=== PATIENT | male | born 1950 | race American Indian/Alaskan Native ===

== ENCOUNTER 2018-04-06 17:01 | Inpatient (IN) | payer MEDICARE ==
[2018-04-06] MEDS ORDERED: Aspirin 325 mg EC Tablets PO STA (18:12)
[2018-04-06] MEDS ORDERED: Morphine 4 MG/ML VIAL ONE (18:21)
[2018-04-06] MEDS ORDERED: Aspirin 325 mg EC Tablets PO ONE (18:26)
[2018-04-06 18:28] LABS: BASO # 0.1 K/uL (0.0-0.2); BASO % 0.4 % (0.0-2.0); EOS % 0.1 % (0.0-4.0); HEMOGLOBIN 16.8 g/dL (12.0-18.0); LYMPH # 2.2 K/uL (1.0-4.3); LYMPH % 13.3 % (20.0-40.0); MEAN CELL VOLUME 80.3 fL (80.0-94.0); MEAN CORPUSCULAR HEMOGLOBIN 27.6 pg (27.0-31.0); MEAN CORPUSCULAR HGB CONC 34.4 g/dL (33.0-37.0); MEAN PLATELET VOLUME 7.9 fL (7.2-11.7); MONO # 1.7 K/uL (0.0-0.8); MONO % 10.1 % (0.0-10.0); NEUT # 12.9 K/uL (1.8-7.0); NEUT % 76.1 % (50.0-75.0); NRBC % 0.1 % (0.0-2.0); RBC 6.08 Mil/uL (4.40-5.90); RED CELL DISTRIBUTION WIDTH 16.7 % (11.5-14.5); WHITE BLOOD COUNT 16.9 K/uL (4.8-10.8)
[2018-04-06 18:39] LABS: INR 1.1; PROTHROMBIN TIME 12.1 SECONDS (9.7-12.2)
[2018-04-06 18:40] LABS: ALB/GLOB RATIO 1.1 (1.0-2.1); ALBUMIN 4.4 g/dL (3.5-5.0); CALCIUM 9.8 mg/dl (8.6-10.4)
[2018-04-06 18:57] LABS: TROPONIN I 14.1 ng/mL (0.00-0.120)
[2018-04-06] MEDS ORDERED: Heparin25000 units/250ml 1/2NS 25,000 UNITS/250 ML BAG IV STA (19:03)
--- NOTE | 2018-04-06 19:26 | C.PDOC ---
History Of Present Illness Pt c/o chest pain radiating to the back. Time Seen by Provider: 04/06/18 18:07 Chief Complaint (Nursing): Chest Pain History Per: Patient Onset/Duration Of Symptoms: Hrs (since last night), Waxing/Waning Current Symptoms Are (Timing): Still Present Severity: Severe Quality: "Pain" Associated Symptoms: Dyspnea, Diaphoresis Alleviating Factors: None Additional History Per: Prior Records Past Medical History Reviewed: Historical Data, Nursing Documentation, Vital Signs Vital Signs: Last Vital Signs Temp 98.9 F 04/06/18 17:10 Pulse 105 H 04/06/18 18:33 Resp 26 H 04/06/18 18:33 BP 166/106 H 04/06/18 18:33 Pulse Ox 99 04/06/18 18:33 - Medical History PMH: HTN Surgical History: No Surg Hx Family History: States: Unknown Family Hx - Social History Hx Tobacco Use: Yes Hx Alcohol Use: No Hx Substance Use: No - Immunization History Hx Tetanus Toxoid Vaccination: No Hx Influenza Vaccination: No Hx Pneumococcal Vaccination: No Review Of Systems Except As Marked, All Systems Reviewed And Found Negative. Constitutional: Negative for: Fever, Weakness Cardiovascular: Positive for: Chest Pain Respiratory: Positive for: Shortness of Breath. Negative for: Hemoptysis Gastrointestinal: Negative for: Vomiting, Abdominal Pain, Diarrhea Musculoskeletal: Positive for: Back Pain. Negative for: Neck Pain Skin: Negative for: Rash Neurological: Negative for: Weakness, Numbness Physical Exam - Physical Exam Appears: In Acute Distress Skin: Normal Color, Warm, Diaphoretic Head: Atraumatic Eye(s): bilateral: PERRL, EOMI Neck: Normal ROM, Supple Cardiovascular: Rhythm Regular Respiratory: Normal Breath Sounds, No Accessory Muscle Use Gastrointestinal/Abdominal: Soft, No Tenderness Extremity: Normal ROM, No Pedal Edema, No Calf Tenderness Neurological/Psych: Oriented x3, Normal Motor, Normal Sensation ED Course And Treatment - Laboratory Results Result Diagrams: 04/06/18 18:23 04/06/18 18:23 Lab Interpretation: Abnormal Interpretation Of Abnormal: Positive Troponin. Renal insufficiency. Leukocytosis. ECG: Interpreted By Me, Viewed By Me ECG Rhythm: Sinus Tachycardia, R BBB, Nonspecific Changes ECG Interpretation: Abnormal Interpretation Of ECG: LVH. LAFB. No pior EKG available for comparison. Rate From EC O2 Sat by Pulse Oximetry: 99 Pulse Ox Interpretation: Normal - Radiology CXR: Interpreted by Me, Viewed By Me CXR Interpretation: Yes: Mediastinum (wnl) - Physician Consult Information Physician Contacted: Damion Lam Outcome Of Conversation: He evaluated pt in the ED and reviewed the EKG. He recommends Heparin drip, Brillinta 180mg po and ICU admission. Progress - Interventions Interventions:: Observation, Oxygen - Medications Administered Oral: Aspirin, Other (Brillinta) Intravenous: Other (Heparin) - Data Reviewed Data Reviewed: Lab, Diagnostic imaging, EKG, Old records - Patient Status Patient status: Partially improved - Critical Care Citical Care: Excluding Proc Time Critical Care Time: 60 minutes - Continuity of Care Discussed patient case with:: Patient, ED Nurse, PMD Discussed pt. case with sr technical sales consultant/specialty: Interventional Cardiology, Pulmonary/Crit. Care - Patient Plan Patient Plan: Admission, ICU Disposition Discussed With DrGordo: Mohan Latham Comment: He accepted pt on his service. Doctor Will See Patient In The: Hospital Counseled Patient/Family Regarding: Studies Performed, Diagnosis, Smoking Cessation - Disposition Disposition: HOSPITALIZED Disposition Time: 19:30 Condition: SERIOUS - Clinical Impression Clinical Impression: Acute HI
[2018-04-06] MEDS ORDERED: Nitroglycerin 2% Ointment Foilpak UD TOP STA (19:41)
--- NOTE | 2018-04-06 19:44 | RAD ---
PROCEDURE: CHEST RADIOGRAPH, 1 VIEW HISTORY: chest pain COMPARISON: None available. FINDINGS: LUNGS: Inspiratory volume appears somewhat limited. Crowding of the bronchovascular markings is favored over infiltrates at the bilateral bases, right greater than left. Clinically correlate further. PLEURA: No pneumothorax or pleural fluid seen. CARDIOVASCULAR: Normal. OSSEOUS STRUCTURES: No significant abnormalities. VISUALIZED UPPER ABDOMEN: Normal. OTHER FINDINGS: None. IMPRESSION: Diminished inspiratory volume is felt to cause crowding of the bronchovascular markings greater the right than left lung bases. Infiltrates are not favored but not completely excluded.
--- NOTE | 2018-04-06 19:44 | CP.PCM.CON ---
History of Present Illness - History of Present Illness History of Present Illness: INTERVENTIONAL CARDIOLOGY CONSULTATION REQUESTED BY DR ROBERSON Patient is a 67 year old male with PMH HTN, hypercholesterolemnia who presents with chest pain. The patient states symptoms began yesterday and is described as pressure like radiating to the shoulder. He had associated dyspnea. The patient initially waited however had recurrent symptoms and dyspnea, therefore he presented to [facility]. I ER he was found to have and EKG with sinus rhythm, ectopy, T wave abnormalities. Patient was found to have an elevated troponin. Creatinine is also elevated. Review of Systems - Constitutional Constitutional: absent: As Per HPI, Anorexia, Chills, Daytime Sleepiness, Excessive Sweating, Fatigue, Fever, Frequent Falls, Headache, Increased Appetite , Lethargy, Malaise, Night Sweats, Snoring, Sleep Apnea, Weight Gain, Weight Loss, Weakness, Other - EENT Eyes: absent: As Per HPI, Blind Spots, Blurred Vision, Change in Vision, Decreased Night Vision, Diplopia, Discharge, Dry Eye, Exophthalmos, Floaters, Irritation, Itchy Eyes, Loss of Peripheral Vision, Pain, Photophobia, Requires Corrective Lenses, Sees Flashes, Spots in Vision, Tunnel Vision, Other Visual Disturbances, Loss of Vision, Other Ears: absent: As Per HPI, Decreased Hearing, Ear Discharge, Ear Pain, Tinnitus, Abnormal Hearing, Disequilibrium, Dizziness, Other Nose/Mouth/Throat: absent: As Per HPI, Epistaxis, Nasal Congestion, Nasal Discharge, Nasal Obstruction, Nasal Trauma, Nose Pain, Post Nasal Drip, Sinus Pain, Sinus Pressure, Bleeding Gums, Change in Voice, Dental Pain, Dry Mouth, Dysphagia, Halitosis, Hoarsness, Lip Swelling, Mouth Lesions, Mouth Pain, Odynophagia, Sore Throat, Throat Swelling, Tongue Swelling, Facial Pain, Neck Pain, Neck Mass, Other - Cardiovascular Cardiovascular: Chest Pain, Diaphoresis, Dyspnea - Respiratory Respiratory: Dyspnea - Gastrointestinal Gastrointestinal: absent: As Per HPI, Abdominal Pain, Belching, Bloating, Change in Bowel Habits, Change in Stool Character, Coffee Ground Emesis, Constipation, Cramping, Diarrhea, Dyspepsia, Dysphagia, Early Satiety, Excessive Flatus, Fecal Incontinence, Heartburn, Hematemesis, Hematochezia, Loose Stools, Melena, Nausea, Odynophagia, Temesmus, Vomiting, Other - Genitourinary Genitourinary: absent: As Per HPI, Change in Urinary Stream, Difficulty Urinating, Dysuria, Flank Pain, Hematuria, Pyuria, Nocturia, Urinary Incontinence, Urinary Frequency, Urinary Hesitance, Urinary Urgency, Voiding Freq/Small Amts, Freq UTI, Hx Renal/Bladder Calculi, Hx /Renal Surgery, Bladder Distension, Other - Musculoskeletal Musculoskeletal: absent: As Per HPI, Abnormal Gait, Arthralgias, Atrophy, Back Pain, Deformity, Joint Swelling, Limited Range of Motion, Loss of Height, Muscle Cramps, Muscle Weakness, Myalgias, Neck Pain, Numbness, Radiating Pain into Limb, Stiffness, Tingling, Other - Integumentary Integumentary: absent: As Per HPI, Acne, Alopecia, Bleeding Lesions, Change in Hair, Change in Nails, Change in Pigmentation, Changing Lesions, Dry Skin, Erythema, Furuncle, Hirsutism, Lesions, New Lesions, Non-Healing Lesions, Photosensitivity, Pruritus, Rash, Skin Pain, Skin Ulcer, Sores, Striae, Swelling , Unusual Bruising, Wounds, Jaundice, Other - Neurological Neurological: absent: As Per HPI, Abnormal Gait, Abnormal Hearing, Abnormal Movements, Abnormal Speech, Behavioral Changes, Burning Sensations, Confusion, Convulsions, Disequilibrium, Dizziness, Numbness, Focal Weakness, Frequent Falls , Headaches, Lack of Coordination, Loss of Vision, Memory Loss, Paresthesias, Radicular Pain, Restless Legs, Sensory Deficit, Syncope, Tingling, Tremor, Vertigo, Weakness, Other Visual Disturbances, Other - Psychiatric Psychiatric: absent: As Per HPI, Abnormal Sleep Pattern, Anhedonia, Anxiety, Auditory Hallucinations, Behavioral Changes, Change in Appetite, Change in Libido, Confusion, Depression, Difficulty Concentrating, Hallucinations, Homicidal Ideation, Hopelessness, Irritability, Memory Loss, Mood Swings, Panic Attacks, Paranoia, Suicidal Ideation, Visual Hallucinations, Tactile Hallucinations, Other - Endocrine Endocrine: absent: As Per HPI, Change in Body Appearance, Change in Libido, Cold Intolorance, Deepening of Voice, Excessive Sweating, Fatigue, Flushing, Heat Intolorance, Increase in Ring/Shoe/Hat Size, Palpitations, Polydipsia, Polyphagia, Polyuria, Other - Hematologic/Lymphatic Hematologic: absent: As Per HPI, Easy Bleeding, Easy Bruising, Lymphadenopathy, Other Past Patient History - Past Social History Smoking Status: Heavy Smoker > 10 Cigarettes Daily - CARDIAC Hx Hypertension: Yes - PSYCHIATRIC Hx Substance Use: No - SURGICAL HISTORY Hx Surgeries: No - ANESTHESIA Hx Anesthesia: No Meds Allergies/Adverse Reactions: Allergies Allergy/AdvReac Type Severity Reaction Status Date / Time No Known Allergies Allergy Verified 04/06/18 17:12 - Medications Medications: Current Medications Heparin Sodium/Sodium Chloride (Heparin 59437 Units/250ml 1/2 Normal Saline) 25 ,000 units in 250 mls @ 12 mls/hr IV .[id number] STA PRN Reason: Protocol Stop: 04/07/18 15:52 Last Admin: 04/06/18 19:33 Dose: 12 mls/hr Physical Exam - Constitutional Appears: Non-toxic Additional comments: mild distress - Head Exam Head Exam: NORMAL INSPECTION - Eye Exam Eye Exam: Normal appearance - ENT Exam ENT Exam: Mucous Membranes Moist - Neck Exam Neck exam: Positive for: Full Rom - Respiratory Exam Respiratory Exam: Decreased Breath Sounds - Cardiovascular Exam Cardiovascular Exam: REGULAR RHYTHM - GI/Abdominal Exam GI & Abdominal Exam: Normal Bowel Sounds - Rectal Exam Rectal Exam: Deferred - Extremities Exam Extremities exam: Negative for: pedal edema - Back Exam Back exam: NORMAL INSPECTION - Neurological Exam Neurological exam: Alert, Oriented x3 - Psychiatric Exam Psychiatric exam: Normal Affect - Skin Skin Exam: Normal Color Results - Vital Signs Recent Vital Signs: Last Vital Signs Temp 98.9 F 04/06/18 17:10 Pulse 105 H 04/06/18 18:33 Resp 26 H 04/06/18 18:33 BP 166/106 H 04/06/18 18:33 Pulse Ox 99 04/06/18 19:30 - Labs Result Diagrams: 04/06/18 18:23 04/06/18 18:23 Labs: Laboratory Results - last 24 hr 04/06/18 04/06/18 04/06/18 18:23 18:23 18:23 WBC 16.9 H D RBC 6.08 H Hgb 16.8 Hct 48.9 MCV 80.3 MCH 27.6 MCHC 34.4 RDW 16.7 H Plt Count 236 MPV 7.9 Neut % (Auto) 76.1 H Lymph % (Auto) 13.3 L Barren % (Auto) 10.1 H Eos % (Auto) 0.1 Baso % (Auto) 0.4 Neut # (Auto) 12.9 H Lymph # (Auto) 2.2 Barren # (Auto) 1.7 H Eos # (Auto) 0.0 Baso # (Auto) 0.1 PT 12.1 INR 1.1 APTT 36 H D-Dimer, Quantitative 281 H Sodium 138 Potassium 3.9 Chloride 95 L Carbon Dioxide 31 H Anion Gap 16 BUN 24 H Creatinine 1.7 H Est GFR ( Amer) 49 Est GFR (Non-Af Amer) 41 POC Glucose (mg/dL) Random Glucose 140 H Calcium 9.8 Total Bilirubin 1.1 AST 126 H ALT 41 Alkaline Phosphatase 87 Troponin I 14.1000 H* NT-Pro-B Natriuret Pep 2260 H Total Protein 8.3 Albumin 4.4 Globulin 3.9 Albumin/Globulin Ratio 1.1 Lipase 52 04/06/18 18:38 WBC RBC Hgb Hct MCV MCH MCHC RDW Plt Count MPV Neut % (Auto) Lymph % (Auto) Barren % (Auto) Eos % (Auto) Baso % (Auto) Neut # (Auto) Lymph # (Auto) Barren # (Auto) Eos # (Auto) Baso # (Auto) PT INR APTT D-Dimer, Quantitative Sodium Potassium Chloride Carbon Dioxide Anion Gap BUN Creatinine Est GFR ( Amer) Est GFR (Non-Af Amer) POC Glucose (mg/dL) 144 H Random Glucose Calcium Total Bilirubin AST ALT Alkaline Phosphatase Troponin I NT-Pro-B Natriuret Pep Total Protein Albumin Globulin Albumin/Globulin Ratio Lipase - EKG Data EKG Interpreted by: Myself Assessment & Plan (1) NSTEMI (non-ST elevated myocardial infarction) Assessment and Plan: patient's presetation is consistent with acute coronary syndrome. I recommend aggressive medical stabilization. admit to ICU. will give Brilinta laod dose, recommend 90 mg BID. start heparin drip. echocardiogram to assess LV function. will need eventual cardiac cath in next 48 hrs, but will have to monitor renal function for risk of contrast induced nephropathy. Status: Acute
[2018-04-06] MEDS ORDERED: Nitroglycerin 2% Ointment Foilpak UD TOP ONE (19:45)
--- NOTE | 2018-04-06 20:29 | CP.PCM.CON ---
History of Present Illness - History of Present Illness History of Present Illness: Patient is a 67 year old male with PMH of HTN admitted with Acute Coronary Syndrome.Patient c/o worsening retrosternal pressure like chest pain radiating to shoulders ,laterally on both sides of chest .and difficulty brathings since last night.No nausea,vomiting or dizziness.Seen by Cardiology in ER.Given Brillinta and started on IV heparin Review of Systems - Review of Systems Systems not reviewed;Unavailable: Respiratory Distress - Constitutional Constitutional: Fatigue. absent: Chills, Excessive Sweating, Fever, Weight Gain , Weight Loss Additional comments: poor appetite since 04/03.Was nauseous after dinner on 04/02 - EENT Eyes: absent: Blurred Vision, Itchy Eyes Ears: absent: Decreased Hearing, Dizziness Nose/Mouth/Throat: absent: Nasal Congestion, Sore Throat - Cardiovascular Cardiovascular: Chest Pain, Chest Pain at Rest, Dyspnea. absent: Claudication, Diaphoresis, Edema, Palpitations - Respiratory Respiratory: Dyspnea. absent: Cough, Chest Congestion - Gastrointestinal Gastrointestinal: absent: Abdominal Pain, Change in Bowel Habits, Nausea, Vomiting - Genitourinary Genitourinary: absent: Change in Urinary Stream, Dysuria - Musculoskeletal Musculoskeletal: absent: Arthralgias, Back Pain - Integumentary Integumentary: absent: Rash, Jaundice - Neurological Neurological: absent: Dizziness, Focal Weakness - Endocrine Endocrine: absent: Palpitations, Polydipsia, Polyphagia Past Patient History - Past Social History Smoking Status: Heavy Smoker > 10 Cigarettes Daily Occupation: furniture moving Alcohol: < 2 Drinks/Day Drugs: Denies - CARDIAC Hx Hypertension: Yes - PSYCHIATRIC Hx Substance Use: No - SURGICAL HISTORY Hx Surgeries: No - ANESTHESIA Hx Anesthesia: No Meds Allergies/Adverse Reactions: Allergies Allergy/AdvReac Type Severity Reaction Status Date / Time No Known Allergies Allergy Verified 04/06/18 17:12 - Medications Medications: Current Medications Heparin Sodium/Sodium Chloride (Heparin 07499 Units/250ml 1/2 Normal Saline) 25 ,000 units in 250 mls @ 12 mls/hr IV .[id number] STA PRN Reason: Protocol Stop: 04/07/18 15:52 Last Admin: 04/06/18 19:33 Dose: 12 mls/hr Physical Exam - Constitutional Appears: In Acute Distress - Head Exam Head Exam: ATRAUMATIC, NORMAL INSPECTION, NORMOCEPHALIC - Eye Exam Eye Exam: EOMI, Normal appearance, PERRL Pupil Exam: NORMAL ACCOMODATION - ENT Exam ENT Exam: Mucous Membranes Dry, Normal External Ear Exam - Neck Exam Neck exam: Positive for: Full Rom, Normal Inspection - Respiratory Exam Respiratory Exam: Clear to Auscultation Bilateral, NORMAL BREATHING PATTERN. absent: Chest Wall Tenderness, Rhonchi, Wheezes - Cardiovascular Exam Cardiovascular Exam: REGULAR RHYTHM. absent: JVD - GI/Abdominal Exam GI & Abdominal Exam: Normal Bowel Sounds, Soft. absent: Distended, Tenderness - Extremities Exam Extremities exam: Positive for: normal inspection, pedal pulses present. Negative for: calf tenderness, pedal edema, tenderness - Back Exam Back exam: NORMAL INSPECTION - Neurological Exam Neurological exam: Alert, Oriented x3 - Psychiatric Exam Psychiatric exam: Normal Affect - Skin Skin Exam: Intact, Normal Color, Warm Results - Vital Signs Recent Vital Signs: Last Vital Signs Temp 98.9 F 04/06/18 17:10 Pulse 107 H 04/06/18 19:55 Resp 33 H 04/06/18 19:55 BP 130/75 04/06/18 19:55 Pulse Ox 95 04/06/18 19:55 - Labs Result Diagrams: 04/06/18 18:23 04/06/18 18:23 Labs: Laboratory Results - last 24 hr 04/06/18 04/06/18 04/06/18 18:23 18:23 18:23 WBC 16.9 H D RBC 6.08 H Hgb 16.8 Hct 48.9 MCV 80.3 MCH 27.6 MCHC 34.4 RDW 16.7 H Plt Count 236 MPV 7.9 Neut % (Auto) 76.1 H Lymph % (Auto) 13.3 L Kendall % (Auto) 10.1 H Eos % (Auto) 0.1 Baso % (Auto) 0.4 Neut # (Auto) 12.9 H Lymph # (Auto) 2.2 Kendall # (Auto) 1.7 H Eos # (Auto) 0.0 Baso # (Auto) 0.1 PT 12.1 INR 1.1 APTT 36 H D-Dimer, Quantitative 281 H Sodium 138 Potassium 3.9 Chloride 95 L Carbon Dioxide 31 H Anion Gap 16 BUN 24 H Creatinine 1.7 H Est GFR ( Amer) 49 Est GFR (Non-Af Amer) 41 POC Glucose (mg/dL) Random Glucose 140 H Calcium 9.8 Total Bilirubin 1.1 AST 126 H ALT 41 Alkaline Phosphatase 87 Troponin I 14.1000 H* NT-Pro-B Natriuret Pep 2260 H Total Protein 8.3 Albumin 4.4 Globulin 3.9 Albumin/Globulin Ratio 1.1 Lipase 52 04/06/18 18:38 WBC RBC Hgb Hct MCV MCH MCHC RDW Plt Count MPV Neut % (Auto) Lymph % (Auto) Kendall % (Auto) Eos % (Auto) Baso % (Auto) Neut # (Auto) Lymph # (Auto) Kendall # (Auto) Eos # (Auto) Baso # (Auto) PT INR APTT D-Dimer, Quantitative Sodium Potassium Chloride Carbon Dioxide Anion Gap BUN Creatinine Est GFR ( Amer) Est GFR (Non-Af Amer) POC Glucose (mg/dL) 144 H Random Glucose Calcium Total Bilirubin AST ALT Alkaline Phosphatase Troponin I NT-Pro-B Natriuret Pep Total Protein Albumin Globulin Albumin/Globulin Ratio Lipase - EKG Data EKG Interpreted by: Myself - Imaging and Cardiology Chest x-ray Status: Image reviewed by me, Report reviewed by me Assessment & Plan - Assessment and Plan (Free Text) Assessment: 1.Acute Coronary syndrome Brillinta,heparin,coreg,aspirin ECHO for Cardiac cath 2.HTN on meds at home Monitor BP 3.Renal insufficiency-hydration,pt for possible Cardiac cath 4.Leucocytosis no fever Chest xray noted.will repeat and get UA 5.Elevated AST rpt labs
[2018-04-06 20:40] LABS: SQUAMOUS EPITHIAL 5 /hpf (0-5); URINE BACTERIA FEW (<OCC); URINE BILIRUBIN NEGATIVE (NEGATIVE); URINE BLOOD 1+ (NEGATIVE); URINE CLARITY Hazy (Clear); URINE COLOR Amber (YELLOW); URINE GLUCOSE (UA) NORMAL (Normal); URINE LEUKOCYTE ESTERASE 3+ Leu/uL (Negative); URINE PROTEIN 2+ mg/dL (NEGATIVE)
[2018-04-06 20:44] LABS: BARBITURATES, UR NEGATIVE (NEGATIVE); BENZODIAZEPINES, UR NEGATIVE (NEGATIVE); PHENCYCLIDINE, UR NEGATIVE (NEGATIVE)
[2018-04-06 20:53] LABS: OPIATES, UR POSITIVE (NEGATIVE)
[2018-04-06] MEDS ORDERED: Sodium Chloride 0.45% 1,000 ML IV SCH (21:00)
[2018-04-06] MEDS ORDERED: Morphine 4 MG/ML VIAL IVP ONE (22:00)
[2018-04-06] MEDS: Nitroglycerin 50mg in D5W 50 MG/250 ML BOTTLE IV SCH (22:32)
[2018-04-06] MEDS: Heparin25000 units/250ml 1/2NS 25,000 UNITS/250 ML BAG IV PRN (23:56)
[2018-04-07 01:26] LABS: HEMOGLOBIN 15.3 g/dL (12.0-18.0); MEAN CELL VOLUME 80.5 fL (80.0-94.0); MEAN CORPUSCULAR HEMOGLOBIN 27.4 pg (27.0-31.0); MEAN PLATELET VOLUME 8.2 fL (7.2-11.7); RBC 5.58 Mil/uL (4.40-5.90); RED CELL DISTRIBUTION WIDTH 16.8 % (11.5-14.5); WHITE BLOOD COUNT 16.5 K/uL (4.8-10.8)
[2018-04-07 01:44] LABS: HDL CHOLESTEROL 56 mg/dL (30-70)
[2018-04-07 01:49] LABS: ALB/GLOB RATIO 1.2 (1.0-2.1); ALBUMIN 3.9 g/dL (3.5-5.0); ALT/SGPT 18 U/L (21-72); AST/SGOT 89 U/L (17-59); BLOOD UREA NITROGEN 24 mg/dL (9-20); GFR AFRICAN-AMERICAN > 60; GFR NON-AFRICAN AMERICAN 55
[2018-04-07 01:54] LABS: LDL CHOLESTEROL 95 mg/dL (0-129)
[2018-04-07] MEDS ORDERED: Sodium Chloride 0.45% 1,000 ML IV SCH (06:19)
[2018-04-07] MEDS ORDERED: Potassium Chloride 20 mEq ER Tab PO ONE (06:30)
--- NOTE | 2018-04-07 07:42 | CP.CCUPN ---
<Jenny Medellin - Last Filed: 04/07/18 14:02> CCU Subjective - Physician Review Subjective (Free Text): Patient seen and examined at bedside. Denied chest pain, nausea, vomiting, or shortness of breath. CCU Objective - Vital Signs / Intake & Output Vital Signs (Last 4 hours): Vital Signs Temp Pulse Resp BP Pulse Ox 04/07/18 06:40 91 H 25 H 94 L 04/07/18 06:30 95 H 24 95 04/07/18 06:20 92 H 25 H 04/07/18 06:10 98 H 25 H 93 L 04/07/18 06:02 92 H 24 129/88 94 L 04/07/18 06:00 94 H 21 94 L 04/07/18 05:50 99 H 30 H 93 L 04/07/18 05:40 95 H 18 93 L 04/07/18 05:30 92 H 26 H 96 04/07/18 05:20 90 23 97 04/07/18 05:10 97 H 25 H 96 04/07/18 05:02 91 H 27 H 137/94 H 04/07/18 05:00 90 29 H 04/07/18 04:50 95 H 32 H 04/07/18 04:40 95 H 29 H 04/07/18 04:30 99 H 23 85 L 04/07/18 04:20 95 H 22 93 L 04/07/18 04:10 95 H 31 H 92 L 04/07/18 04:02 92 H 29 H 144/86 92 L 04/07/18 04:00 98.3 F 91 H 25 H 93 L 04/07/18 03:50 92 H 21 93 L Intake and Output (Last 8hrs): Intake & Output 04/06/18 04/07/18 04/07/18 22:59 06:59 14:59 Intake Total 334.0 601.0 Output Total 300 650 Balance 34.0 -49.0 Weight 210 lb 210 lb Intake: IV 50 Intake, IV Amount 94.0 551.0 Left Antecubital 11.5 92.0 Left Antecubital Y Port 75 390 Right Antecubital 7.5 69.0 Oral 240 Output: Urine 300 650 Urine, Voided 300 650 Other: # Voids Urine, Voided 1 - Physical Exam Head: Positive for: Atraumatic, Normocephalic Pupils: Positive for: PERRL Extroacular Muscles: Positive for: EOMI Conjunctiva: Positive for: Normal Mouth: Positive for: Dry Pharnyx: Positive for: Normal Neck: Positive for: Normal Range of Motion Respiratory/Chest: Positive for: Clear to Auscultation. Negative for: Wheezes Cardiovascular: Positive for: Regular Rate and Rhythm, Normal S1, S2. Negative for: Murmurs Abdomen: Positive for: Normal Bowel Sounds. Negative for: Tenderness, Distention Upper Extremity: Positive for: Normal Inspection, NORMAL PULSES, Neurovascularly Intact, Capillary Refill < 2s. Negative for: Cyanosis, Edema Lower Extremity: Positive for: Normal Inspection, NORMAL PULSES, Neurovascularly Intact, Capillary Refill < 2 s. Negative for: Edema, CALF TENDERNESS, Tenderness, Swelling Neurological: Positive for: GCS=15, CN II-XII Intact Skin: Positive for: Warm, Dry, Normal Color Psychiatric: Positive for: Alert, Oriented x 3, Normal Insight - Medications Active Medications: Active Medications Generic Name Dose Route Start Last Admin Trade Name Freq PRN Reason Stop Dose Admin Aspirin 81 mg 04/07/18 10:00 Ecotrin PO DAILY [facility] Nitroglycerin/Dextrose 50 mg in 250 mls @ 7.5 mls/hr 04/06/18 22:00 04/07/18 01:00 Nitroglycerin 50 Mg/250 Ml D5w IV 30 mcg/min .Q24H ALY 9 mls/hr Protocol Titration 25 MCG/MIN Heparin Sodium/Sodium Chloride 25,000 units in 250 mls @ 11.43 mls/hr 23:51 04/06/18 23:56 Heparin 07516 Units/250ml 1/2 Normal Saline IV 12 units/kg/hr .[id number] PRN 11.43 mls/hr ADJUST RATE PER PROTOCOL Administration Protocol 12 UNITS/KG/HR Sodium Chloride 1,000 mls @ 40 mls/hr 04/07/18 06:19 04/07/18 06:31 Sodium Chloride 0.45% IV 40 mls/hr .Q24H ALY Administration Insulin Human Regular 0 unit 04/07/18 11:30 Novolin R SC ACHS [facility] Protocol Metoprolol Tartrate 25 mg 04/06/18 22:30 04/06/18 22:32 Lopressor PO 25 mg BID ALY Administration Pantoprazole Sodium 40 mg 04/07/18 10:00 Protonix Ec Tab PO DAILY ALY Rosuvastatin Calcium 10 mg 04/07/18 22:00 Crestor PO HS ALY Ticagrelor 90 mg 04/07/18 10:00 Brilinta PO BID ALY - Patient Studies Lab Studies: Lab Studies 04/07/18 04/07/18 04/07/18 Range/Units 01:30 01:23 01:23 WBC 16.5 H (4.8-10.8) K/uL RBC 5.58 (4.40-5.90) Mil/uL Hgb 15.3 (12.0-18.0) g/dL Hct 44.9 (35.0-51.0) % MCV 80.5 (80.0-94.0) fL MCH 27.4 (27.0-31.0) pg MCHC 34.0 (33.0-37.0) g/dL RDW 16.8 H (11.5-14.5) % Plt Count 214 (130-400) K/uL MPV 8.2 (7.2-11.7) fL Neut % (Auto) (50.0-75.0) % Lymph % (Auto) (20.0-40.0) % [place] % (Auto) (0.0-10.0) % Eos % (Auto) (0.0-4.0) % Baso % (Auto) (0.0-2.0) % Neut # (Auto) (1.8-7.0) K/uL Lymph # (Auto) (1.0-4.3) K/uL [place] # (Auto) (0.0-0.8) K/uL Eos # (Auto) (0.0-0.7) K/uL Baso # (Auto) (0.0-0.2) K/uL PT (9.7-12.2) SECONDS INR APTT 49 H D (21-34) SECONDS D-Dimer, Quantitative (0-243) ng/mlDDU Sodium 132 (132-148) mmol/L Potassium 3.4 L (3.6-5.2) mmol/L Chloride 92 L (98-107) mmol/L Carbon Dioxide 25 (22-30) mmol/L Anion Gap 17 (10-20) BUN 24 H (9-20) mg/dL Creatinine 1.3 (0.8-1.5) mg/dL Est GFR ( Amer) > 60 Est GFR (Non-Af Amer) 55 POC Glucose (mg/dL) (65-110) mg/dL Random Glucose 150 H (75-110) mg/dL Hemoglobin A1c (4.2-6.5) % Calcium 9.0 (8.6-10.4) mg/dl Phosphorus 3.7 (2.5-4.5) mg/dL Magnesium 1.8 (1.6-2.3) mg/dL Total Bilirubin 0.9 (0.2-1.3) mg/dL AST 89 H D (17-59) U/L ALT 18 L D (21-72) U/L Alkaline Phosphatase 75 (38-126) U/L Troponin I 12.0000 H* (0.00-0.120) ng/mL NT-Pro-B Natriuret Pep (0-900) pg/mL Total Protein 7.1 (6.3-8.3) g/dL Albumin 3.9 (3.5-5.0) g/dL Globulin 3.2 (2.2-3.9) gm/dL Albumin/Globulin Ratio 1.2 (1.0-2.1) Triglycerides (0-149) mg/dL Cholesterol (0-199) mg/dL LDL Cholesterol Direct (0-129) mg/dL HDL Cholesterol (30-70) mg/dL Lipase (23-300) U/L Urine Color (YELLOW) Urine Clarity (Clear) Urine pH (5.0-8.0) Ur Specific [place] (1.003-1.030) Urine Protein (NEGATIVE) mg/dL Urine Glucose (UA) (Normal) mg/dL Urine Ketones (NEGATIVE) mg/dL Urine Blood (NEGATIVE) Urine Nitrate (NEGATIVE) Urine Bilirubin (NEGATIVE) Urine Urobilinogen (0.2-1.0) mg/dL Ur Leukocyte Esterase (Negative) Isreal/uL Urine WBC (Auto) (0-5) /hpf Urine RBC (Auto) (0-3) /hpf Ur Squamous Epith Cells (0-5) /hpf Urine Bacteria (<OCC) Hyaline Casts (0-2) /lpf Urine Opiates Screen (NEGATIVE) Urine Methadone Screen (NEGATIVE) Ur Barbiturates Screen (NEGATIVE) Ur Phencyclidine Scrn (NEGATIVE) Ur Amphetamines Screen (NEGATIVE) U Benzodiazepines Scrn (NEGATIVE) U Oth Cocaine Metabols (NEGATIVE) U Cannabinoids Screen (NEGATIVE) 04/07/18 04/07/18 04/06/18 Range/Units 01:23 00:30 20:20 WBC (4.8-10.8) K/uL RBC (4.40-5.90) Mil/uL Hgb (12.0-18.0) g/dL Hct (35.0-51.0) % MCV (80.0-94.0) fL MCH (27.0-31.0) pg MCHC (33.0-37.0) g/dL RDW (11.5-14.5) % Plt Count (130-400) K/uL MPV (7.2-11.7) fL Neut % (Auto) (50.0-75.0) % Lymph % (Auto) (20.0-40.0) % [place] % (Auto) (0.0-10.0) % Eos % (Auto) (0.0-4.0) % Baso % (Auto) (0.0-2.0) % Neut # (Auto) (1.8-7.0) K/uL Lymph # (Auto) (1.0-4.3) K/uL [place] # (Auto) (0.0-0.8) K/uL Eos # (Auto) (0.0-0.7) K/uL Baso # (Auto) (0.0-0.2) K/uL PT (9.7-12.2) SECONDS INR APTT (21-34) SECONDS D-Dimer, Quantitative (0-243) ng/mlDDU Sodium (132-148) mmol/L Potassium (3.6-5.2) mmol/L Chloride (98-107) mmol/L Carbon Dioxide (22-30) mmol/L Anion Gap (10-20) BUN (9-20) mg/dL Creatinine (0.8-1.5) mg/dL Est GFR ( Amer) Est GFR (Non-Af Amer) POC Glucose (mg/dL) (65-110) mg/dL Random Glucose (75-110) mg/dL Hemoglobin A1c 6.5 (4.2-6.5) % Calcium (8.6-10.4) mg/dl Phosphorus (2.5-4.5) mg/dL Magnesium (1.6-2.3) mg/dL Total Bilirubin (0.2-1.3) mg/dL AST (17-59) U/L ALT (21-72) U/L Alkaline Phosphatase (38-126) U/L Troponin I (0.00-0.120) ng/mL NT-Pro-B Natriuret Pep (0-900) pg/mL Total Protein (6.3-8.3) g/dL Albumin (3.5-5.0) g/dL Globulin (2.2-3.9) gm/dL Albumin/Globulin Ratio (1.0-2.1) Triglycerides 86 (0-149) mg/dL Cholesterol 177 (0-199) mg/dL LDL Cholesterol Direct 95 (0-129) mg/dL HDL Cholesterol 56 (30-70) mg/dL Lipase (23-300) U/L Urine Color (YELLOW) Urine Clarity (Clear) Urine pH (5.0-8.0) Ur Specific [place] (1.003-1.030) Urine Protein (NEGATIVE) mg/dL Urine Glucose (UA) (Normal) mg/dL Urine Ketones (NEGATIVE) mg/dL Urine Blood (NEGATIVE) Urine Nitrate (NEGATIVE) Urine Bilirubin (NEGATIVE) Urine Urobilinogen (0.2-1.0) mg/dL Ur Leukocyte Esterase (Negative) Isreal/uL Urine WBC (Auto) (0-5) /hpf Urine RBC (Auto) (0-3) /hpf Ur Squamous Epith Cells (0-5) /hpf Urine Bacteria (<OCC) Hyaline Casts (0-2) /lpf Urine Opiates Screen Positive H (NEGATIVE) Urine Methadone Screen Negative (NEGATIVE) Ur Barbiturates Screen Negative (NEGATIVE) Ur Phencyclidine Scrn Negative (NEGATIVE) Ur Amphetamines Screen Negative (NEGATIVE) U Benzodiazepines Scrn Negative (NEGATIVE) U Oth Cocaine Metabols Negative (NEGATIVE) U Cannabinoids Screen Negative (NEGATIVE) 04/06/18 04/06/18 04/06/18 Range/Units 20:20 18:38 18:23 WBC (4.8-10.8) K/uL RBC (4.40-5.90) Mil/uL Hgb (12.0-18.0) g/dL Hct (35.0-51.0) % MCV (80.0-94.0) fL MCH (27.0-31.0) pg MCHC (33.0-37.0) g/dL RDW (11.5-14.5) % Plt Count (130-400) K/uL MPV (7.2-11.7) fL Neut % (Auto) (50.0-75.0) % Lymph % (Auto) (20.0-40.0) % [place] % (Auto) (0.0-10.0) % Eos % (Auto) (0.0-4.0) % Baso % (Auto) (0.0-2.0) % Neut # (Auto) (1.8-7.0) K/uL Lymph # (Auto) (1.0-4.3) K/uL [place] # (Auto) (0.0-0.8) K/uL Eos # (Auto) (0.0-0.7) K/uL Baso # (Auto) (0.0-0.2) K/uL PT 12.1 (9.7-12.2) SECONDS INR 1.1 APTT 36 H (21-34) SECONDS D-Dimer, Quantitative 281 H (0-243) ng/mlDDU Sodium (132-148) mmol/L Potassium (3.6-5.2) mmol/L Chloride (98-107) mmol/L Carbon Dioxide (22-30) mmol/L Anion Gap (10-20) BUN (9-20) mg/dL Creatinine (0.8-1.5) mg/dL Est GFR ( Amer) Est GFR (Non-Af Amer) POC Glucose (mg/dL) 144 H (65-110) mg/dL Random Glucose (75-110) mg/dL Hemoglobin A1c (4.2-6.5) % Calcium (8.6-10.4) mg/dl Phosphorus (2.5-4.5) mg/dL Magnesium (1.6-2.3) mg/dL Total Bilirubin (0.2-1.3) mg/dL AST (17-59) U/L ALT (21-72) U/L Alkaline Phosphatase (38-126) U/L Troponin I (0.00-0.120) ng/mL NT-Pro-B Natriuret Pep (0-900) pg/mL Total Protein (6.3-8.3) g/dL Albumin (3.5-5.0) g/dL Globulin (2.2-3.9) gm/dL Albumin/Globulin Ratio (1.0-2.1) Triglycerides (0-149) mg/dL Cholesterol (0-199) mg/dL LDL Cholesterol Direct (0-129) mg/dL HDL Cholesterol (30-70) mg/dL Lipase (23-300) U/L Urine Color Jessica (YELLOW) Urine Clarity Hazy (Clear) Urine pH 5.0 (5.0-8.0) Ur Specific [place] 1.031 H (1.003-1.030) Urine Protein 2+ H (NEGATIVE) mg/dL Urine Glucose (UA) Normal (Normal) mg/dL Urine Ketones Negative (NEGATIVE) mg/dL Urine Blood 1+ H (NEGATIVE) Urine Nitrate Negative (NEGATIVE) Urine Bilirubin Negative (NEGATIVE) Urine Urobilinogen 2.0 (0.2-1.0) mg/dL Ur Leukocyte Esterase 3+ H (Negative) Isreal/uL Urine WBC (Auto) 74 H (0-5) /hpf Urine RBC (Auto) 9 H (0-3) /hpf Ur Squamous Epith Cells 5 (0-5) /hpf Urine Bacteria Few H (<OCC) Hyaline Casts 11-20 H (0-2) /lpf Urine Opiates Screen (NEGATIVE) Urine Methadone Screen (NEGATIVE) Ur Barbiturates Screen (NEGATIVE) Ur Phencyclidine Scrn (NEGATIVE) Ur Amphetamines Screen (NEGATIVE) U Benzodiazepines Scrn (NEGATIVE) U Oth Cocaine Metabols (NEGATIVE) U Cannabinoids Screen (NEGATIVE) 04/06/18 04/06/18 Range/Units 18:23 18:23 WBC 16.9 H D (4.8-10.8) K/uL RBC 6.08 H (4.40-5.90) Mil/uL Hgb 16.8 (12.0-18.0) g/dL Hct 48.9 (35.0-51.0) % MCV 80.3 (80.0-94.0) fL MCH 27.6 (27.0-31.0) pg MCHC 34.4 (33.0-37.0) g/dL RDW 16.7 H (11.5-14.5) % Plt Count 236 (130-400) K/uL MPV 7.9 (7.2-11.7) fL Neut % (Auto) 76.1 H (50.0-75.0) % Lymph % (Auto) 13.3 L (20.0-40.0) % [place] % (Auto) 10.1 H (0.0-10.0) % Eos % (Auto) 0.1 (0.0-4.0) % Baso % (Auto) 0.4 (0.0-2.0) % Neut # (Auto) 12.9 H (1.8-7.0) K/uL Lymph # (Auto) 2.2 (1.0-4.3) K/uL [place] # (Auto) 1.7 H (0.0-0.8) K/uL Eos # (Auto) 0.0 (0.0-0.7) K/uL Baso # (Auto) 0.1 (0.0-0.2) K/uL PT (9.7-12.2) SECONDS INR APTT (21-34) SECONDS D-Dimer, Quantitative (0-243) ng/mlDDU Sodium 138 (132-148) mmol/L Potassium 3.9 (3.6-5.2) mmol/L Chloride 95 L (98-107) mmol/L Carbon Dioxide 31 H (22-30) mmol/L Anion Gap 16 (10-20) BUN 24 H (9-20) mg/dL Creatinine 1.7 H (0.8-1.5) mg/dL Est GFR ( Amer) 49 Est GFR (Non-Af Amer) 41 POC Glucose (mg/dL) (65-110) mg/dL Random Glucose 140 H (75-110) mg/dL Hemoglobin A1c (4.2-6.5) % Calcium 9.8 (8.6-10.4) mg/dl Phosphorus (2.5-4.5) mg/dL Magnesium (1.6-2.3) mg/dL Total Bilirubin 1.1 (0.2-1.3) mg/dL AST 126 H (17-59) U/L ALT 41 (21-72) U/L Alkaline Phosphatase 87 (38-126) U/L Troponin I 14.1000 H* (0.00-0.120) ng/mL NT-Pro-B Natriuret Pep 2260 H (0-900) pg/mL Total Protein 8.3 (6.3-8.3) g/dL Albumin 4.4 (3.5-5.0) g/dL Globulin 3.9 (2.2-3.9) gm/dL Albumin/Globulin Ratio 1.1 (1.0-2.1) Triglycerides (0-149) mg/dL Cholesterol (0-199) mg/dL LDL Cholesterol Direct (0-129) mg/dL HDL Cholesterol (30-70) mg/dL Lipase 52 (23-300) U/L Urine Color (YELLOW) Urine Clarity (Clear) Urine pH (5.0-8.0) Ur Specific [place] (1.003-1.030) Urine Protein (NEGATIVE) mg/dL Urine Glucose (UA) (Normal) mg/dL Urine Ketones (NEGATIVE) mg/dL Urine Blood (NEGATIVE) Urine Nitrate (NEGATIVE) Urine Bilirubin (NEGATIVE) Urine Urobilinogen (0.2-1.0) mg/dL Ur Leukocyte Esterase (Negative) Isreal/uL Urine WBC (Auto) (0-5) /hpf Urine RBC (Auto) (0-3) /hpf Ur Squamous Epith Cells (0-5) /hpf Urine Bacteria (<OCC) Hyaline Casts (0-2) /lpf Urine Opiates Screen (NEGATIVE) Urine Methadone Screen (NEGATIVE) Ur Barbiturates Screen (NEGATIVE) Ur Phencyclidine Scrn (NEGATIVE) Ur Amphetamines Screen (NEGATIVE) U Benzodiazepines Scrn (NEGATIVE) U Oth Cocaine Metabols (NEGATIVE) U Cannabinoids Screen (NEGATIVE) Laboratory Results - last 24 hr 04/06/18 04/06/18 04/06/18 18:23 18:23 18:23 WBC 16.9 H D RBC 6.08 H Hgb 16.8 Hct 48.9 MCV 80.3 MCH 27.6 MCHC 34.4 RDW 16.7 H Plt Count 236 MPV 7.9 Neut % (Auto) 76.1 H Lymph % (Auto) 13.3 L [place] % (Auto) 10.1 H Eos % (Auto) 0.1 Baso % (Auto) 0.4 Neut # (Auto) 12.9 H Lymph # (Auto) 2.2 [place] # (Auto) 1.7 H Eos # (Auto) 0.0 Baso # (Auto) 0.1 PT 12.1 INR 1.1 APTT 36 H D-Dimer, Quantitative 281 H Sodium 138 Potassium 3.9 Chloride 95 L Carbon Dioxide 31 H Anion Gap 16 BUN 24 H Creatinine 1.7 H Est GFR ( Amer) 49 Est GFR (Non-Af Amer) 41 POC Glucose (mg/dL) Random Glucose 140 H Hemoglobin A1c Calcium 9.8 Phosphorus Magnesium Total Bilirubin 1.1 AST 126 H ALT 41 Alkaline Phosphatase 87 Troponin I 14.1000 H* NT-Pro-B Natriuret Pep 2260 H Total Protein 8.3 Albumin 4.4 Globulin 3.9 Albumin/Globulin Ratio 1.1 Triglycerides Cholesterol LDL Cholesterol Direct HDL Cholesterol Lipase 52 Urine Color Urine Clarity Urine pH Ur Specific [place] Urine Protein Urine Glucose (UA) Urine Ketones Urine Blood Urine Nitrate Urine Bilirubin Urine Urobilinogen Ur Leukocyte Esterase Urine WBC (Auto) Urine RBC (Auto) Ur Squamous Epith Cells Urine Bacteria Hyaline Casts Urine Opiates Screen Urine Methadone Screen Ur Barbiturates Screen Ur Phencyclidine Scrn Ur Amphetamines Screen U Benzodiazepines Scrn U Oth Cocaine Metabols U Cannabinoids Screen 04/06/18 04/06/18 04/06/18 18:38 20:20 20:20 WBC RBC Hgb Hct MCV MCH MCHC RDW Plt Count MPV Neut % (Auto) Lymph % (Auto) [place] % (Auto) Eos % (Auto) Baso % (Auto) Neut # (Auto) Lymph # (Auto) [place] # (Auto) Eos # (Auto) Baso # (Auto) PT INR APTT D-Dimer, Quantitative Sodium Potassium Chloride Carbon Dioxide Anion Gap BUN Creatinine Est GFR ( Amer) Est GFR (Non-Af Amer) POC Glucose (mg/dL) 144 H Random Glucose Hemoglobin A1c Calcium Phosphorus Magnesium Total Bilirubin AST ALT Alkaline Phosphatase Troponin I NT-Pro-B Natriuret Pep Total Protein Albumin Globulin Albumin/Globulin Ratio Triglycerides Cholesterol LDL Cholesterol Direct HDL Cholesterol Lipase Urine Color Jessica Urine Clarity Hazy Urine pH 5.0 Ur Specific [place] 1.031 H Urine Protein 2+ H Urine Glucose (UA) Normal Urine Ketones Negative Urine Blood 1+ H Urine Nitrate Negative Urine Bilirubin Negative Urine Urobilinogen 2.0 Ur Leukocyte Esterase 3+ H Urine WBC (Auto) 74 H Urine RBC (Auto) 9 H Ur Squamous Epith Cells 5 Urine Bacteria Few H Hyaline Casts 11-20 H Urine Opiates Screen Positive H Urine Methadone Screen Negative Ur Barbiturates Screen Negative Ur Phencyclidine Scrn Negative Ur Amphetamines Screen Negative U Benzodiazepines Scrn Negative U Oth Cocaine Metabols Negative U Cannabinoids Screen Negative 04/07/18 04/07/18 04/07/18 00:30 01:23 01:23 WBC 16.5 H RBC 5.58 Hgb 15.3 Hct 44.9 MCV 80.5 MCH 27.4 MCHC 34.0 RDW 16.8 H Plt Count 214 MPV 8.2 Neut % (Auto) Lymph % (Auto) [place] % (Auto) Eos % (Auto) Baso % (Auto) Neut # (Auto) Lymph # (Auto) [place] # (Auto) Eos # (Auto) Baso # (Auto) PT INR APTT D-Dimer, Quantitative Sodium Potassium Chloride Carbon Dioxide Anion Gap BUN Creatinine Est GFR ( Amer) Est GFR (Non-Af Amer) POC Glucose (mg/dL) Random Glucose Hemoglobin A1c 6.5 Calcium Phosphorus Magnesium Total Bilirubin AST ALT Alkaline Phosphatase Troponin I NT-Pro-B Natriuret Pep Total Protein Albumin Globulin Albumin/Globulin Ratio Triglycerides 86 Cholesterol 177 LDL Cholesterol Direct 95 HDL Cholesterol 56 Lipase Urine Color Urine Clarity Urine pH Ur Specific [place] Urine Protein Urine Glucose (UA) Urine Ketones Urine Blood Urine Nitrate Urine Bilirubin Urine Urobilinogen Ur Leukocyte Esterase Urine WBC (Auto) Urine RBC (Auto) Ur Squamous Epith Cells Urine Bacteria Hyaline Casts Urine Opiates Screen Urine Methadone Screen Ur Barbiturates Screen Ur Phencyclidine Scrn Ur Amphetamines Screen U Benzodiazepines Scrn U Oth Cocaine Metabols U Cannabinoids Screen 04/07/18 04/07/18 01:23 01:30 WBC RBC Hgb Hct MCV MCH MCHC RDW Plt Count MPV Neut % (Auto) Lymph % (Auto) [place] % (Auto) Eos % (Auto) Baso % (Auto) Neut # (Auto) Lymph # (Auto) [place] # (Auto) Eos # (Auto) Baso # (Auto) PT INR APTT 49 H D D-Dimer, Quantitative Sodium 132 Potassium 3.4 L Chloride 92 L Carbon Dioxide 25 Anion Gap 17 BUN 24 H Creatinine 1.3 Est GFR ( Amer) > 60 Est GFR (Non-Af Amer) 55 POC Glucose (mg/dL) Random Glucose 150 H Hemoglobin A1c Calcium 9.0 Phosphorus 3.7 Magnesium 1.8 Total Bilirubin 0.9 AST 89 H D ALT 18 L D Alkaline Phosphatase 75 Troponin I 12.0000 H* NT-Pro-B Natriuret Pep Total Protein 7.1 Albumin 3.9 Globulin 3.2 Albumin/Globulin Ratio 1.2 Triglycerides Cholesterol LDL Cholesterol Direct HDL Cholesterol Lipase Urine Color Urine Clarity Urine pH Ur Specific [place] Urine Protein Urine Glucose (UA) Urine Ketones Urine Blood Urine Nitrate Urine Bilirubin Urine Urobilinogen Ur Leukocyte Esterase Urine WBC (Auto) Urine RBC (Auto) Ur Squamous Epith Cells Urine Bacteria Hyaline Casts Urine Opiates Screen Urine Methadone Screen Ur Barbiturates Screen Ur Phencyclidine Scrn Ur Amphetamines Screen U Benzodiazepines Scrn U Oth Cocaine Metabols U Cannabinoids Screen EKG/Cardiology Studies: Cardiology / EKG Studies 04/06/18 18:11 EKG [ELECTROCARDIOGRAM] Stat Comment: Mode Of Transportation: BED Reason For Exam: cp 04/07/18 07:00 ELECTROCARDIOGRAM Routine Comment: Mode Of Transportation: PORTABLE Reason For Exam: acute Coronaryy syndrome Fingerstick Blood Sugar Results: 144 Critical Care Progress Note - Nutrition Nutrition: Nutrition Category Date Time Status Heart Healthy Diet [DIET] Diets 04/06/18 Breakfast Active Assessment/Plan - Assessment and Plan (Free Text) Assessment: This is a 67 year old male with PMHx of HTN, HLD, New onset DM with A1C 6.5 who presents with chest pain radiating to the shoulder that started 1 day prior to admission. EKG with sinus rhythm, ectopy, T wave abnormalities. Troponin 14.1 -- > 12 --> 7.8. Pending ECHO. Cath TBD. Plan: Neuro: AAO x3 Not on sedation Cardio: A: Chest Pain, [facility] Cardiology - Dr. Latham, Dr. Lam - EKG: Sinus rhythm, ectopy, T wave abnormalities - Troponin 14.1 --> 12 --> 7.8 - Possible cath TBD - Replete electrolytes - F/U ECHO A: Hx HLD - Lipid panel - WNL - Crestor 10mg Management: - ASA, Brilinta, Lopressor 25mg PO BID, lisinopril 10, Crestor 10mg Endo: A: T2DM - Accuchecks - ISS- Low - Will instruct diet, exercise, and weight loss - Started BB, ACEi, Crestor - A1C 6.5 Pulm: - No acute distress GI: - Protonix ID: - Afebrile, leukocytosis, left shift, no bandemia - F/U UA, UC Prophylaxis - Protonix - On heparin drip, SCDs DW Jenny Eid DO, PGY-1 <Minh Jarrett - Last Filed: 04/07/18 18:34> CCU Objective - Vital Signs / Intake & Output Vital Signs (Last 4 hours): Vital Signs Temp Pulse Resp BP Pulse Ox 04/07/18 17:20 95 H 31 H 93 L 04/07/18 17:01 127/68 04/07/18 17:00 89 20 125/89 94 L 04/07/18 16:20 97 H 29 H 94 L 04/07/18 16:00 98.3 F 91 H 19 140/81 95 04/07/18 15:00 93 H 20 133/79 95 Intake and Output (Last 8hrs): Intake & Output 04/07/18 04/07/18 04/07/18 06:59 14:59 22:59 Intake Total 601.0 720.9 172.8 Output Total 650 700 750 Balance -49.0 20.9 -577.2 Weight 210 lb Intake: IV 50 0 Intake, IV Amount 551.0 520.9 172.8 Left Antecubital 92.0 68.9 25.8 Left Antecubital Y Port 390 380 120 Right Antecubital 69.0 72 27 Oral 200 Output: Urine 650 700 750 Urine, Voided 650 700 750 - Medications Active Medications: Active Medications Generic Name Dose Route Start Last Admin Trade Name Freq PRN Reason Stop Dose Admin Aspirin 81 mg 04/07/18 10:00 04/07/18 09:26 Ecotrin PO 81 mg DAILY ALY Administration Nitroglycerin/Dextrose 50 mg in 250 mls @ 7.5 mls/hr 04/06/18 22:00 04/07/18 01:00 Nitroglycerin 50 Mg/250 Ml D5w IV 30 mcg/min .Q24H ALY 9 mls/hr Protocol Titration 25 MCG/MIN Heparin Sodium/Sodium Chloride 25,000 units in 250 mls @ 11.43 mls/hr 23:51 04/07/18 09:56 Heparin 55659 Units/250ml 1/2 Normal Saline IV 9 units/kg/hr .[id number] PRN 8.573 mls/hr ADJUST RATE PER PROTOCOL Titration Protocol 12 UNITS/KG/HR Sodium Chloride 1,000 mls @ 100 mls/hr 04/07/18 14:11 04/07/18 17:01 Sodium Chloride 0.45% IV Not Given .Q10H ALY Insulin Human Regular 0 unit 04/07/18 11:30 04/07/18 17:03 Novolin R SC Not Given ACHS [facility] Protocol Lisinopril 10 mg 04/08/18 10:00 Zestril PO DAILY ALY Metoprolol Tartrate 25 mg 04/06/18 22:30 04/07/18 17:01 Lopressor PO 25 mg BID ALY Administration Pantoprazole Sodium 40 mg 04/07/18 10:00 04/07/18 09:27 Protonix Ec Tab PO 40 mg DAILY ALY Administration Rosuvastatin Calcium 10 mg 04/07/18 22:00 Crestor PO HS ALY Ticagrelor 90 mg 04/07/18 10:00 04/07/18 17:00 Brilinta PO 90 mg BID ALY Administration - Patient Studies Lab Studies: Lab Studies 04/07/18 04/07/18 04/07/18 Range/Units 17:47 16:04 11:14 WBC (4.8-10.8) K/uL RBC (4.40-5.90) Mil/uL Hgb (12.0-18.0) g/dL Hct (35.0-51.0) % MCV (80.0-94.0) fL MCH (27.0-31.0) pg MCHC (33.0-37.0) g/dL RDW (11.5-14.5) % Plt Count (130-400) K/uL MPV (7.2-11.7) fL Neut % (Auto) (50.0-75.0) % Lymph % (Auto) (20.0-40.0) % [place] % (Auto) (0.0-10.0) % Eos % (Auto) (0.0-4.0) % Baso % (Auto) (0.0-2.0) % Neut # (Auto) (1.8-7.0) K/uL Lymph # (Auto) (1.0-4.3) K/uL [place] # (Auto) (0.0-0.8) K/uL Eos # (Auto) (0.0-0.7) K/uL Baso # (Auto) (0.0-0.2) K/uL Neutrophils % (Manual) (50-75) % Lymphocytes % (Manual) (20-40) % Reactive Lymphs % (0-0) % Monocytes % (Manual) (0-10) % Basophils % (Manual) (0-2) % Platelet Estimate (NORMAL) RBC Morphology Anisocytosis (manual) PT (9.7-12.2) SECONDS INR APTT 29 D (21-34) SECONDS D-Dimer, Quantitative (0-243) ng/mlDDU Sodium (132-148) mmol/L Potassium (3.6-5.2) mmol/L Chloride (98-107) mmol/L Carbon Dioxide (22-30) mmol/L Anion Gap (10-20) BUN (9-20) mg/dL Creatinine (0.8-1.5) mg/dL Est GFR ( Amer) Est GFR (Non-Af Amer) POC Glucose (mg/dL) 132 H 153 H (65-110) mg/dL Random Glucose (75-110) mg/dL Hemoglobin A1c (4.2-6.5) % Calcium (8.6-10.4) mg/dl Phosphorus (2.5-4.5) mg/dL Magnesium (1.6-2.3) mg/dL Total Bilirubin (0.2-1.3) mg/dL AST (17-59) U/L ALT (21-72) U/L Alkaline Phosphatase (38-126) U/L Troponin I (0.00-0.120) ng/mL NT-Pro-B Natriuret Pep (0-900) pg/mL Total Protein (6.3-8.3) g/dL Albumin (3.5-5.0) g/dL Globulin (2.2-3.9) gm/dL Albumin/Globulin Ratio (1.0-2.1) Triglycerides (0-149) mg/dL Cholesterol (0-199) mg/dL LDL Cholesterol Direct (0-129) mg/dL HDL Cholesterol (30-70) mg/dL Lipase (23-300) U/L Urine Color (YELLOW) Urine Clarity (Clear) Urine pH (5.0-8.0) Ur Specific [place] (1.003-1.030) Urine Protein (NEGATIVE) mg/dL Urine Glucose (UA) (Normal) mg/dL Urine Ketones (NEGATIVE) mg/dL Urine Blood (NEGATIVE) Urine Nitrate (NEGATIVE) Urine Bilirubin (NEGATIVE) Urine Urobilinogen (0.2-1.0) mg/dL Ur Leukocyte Esterase (Negative) Isreal/uL Urine WBC (Auto) (0-5) /hpf Urine RBC (Auto) (0-3) /hpf Ur Squamous Epith Cells (0-5) /hpf Urine Bacteria (<OCC) Hyaline Casts (0-2) /lpf Urine Opiates Screen (NEGATIVE) Urine Methadone Screen (NEGATIVE) Ur Barbiturates Screen (NEGATIVE) Ur Phencyclidine Scrn (NEGATIVE) Ur Amphetamines Screen (NEGATIVE) U Benzodiazepines Scrn (NEGATIVE) U Oth Cocaine Metabols (NEGATIVE) U Cannabinoids Screen (NEGATIVE) 04/07/18 04/07/18 04/07/18 Range/Units 10:24 08:59 08:59 WBC (4.8-10.8) K/uL RBC (4.40-5.90) Mil/uL Hgb (12.0-18.0) g/dL Hct (35.0-51.0) % MCV (80.0-94.0) fL MCH (27.0-31.0) pg MCHC (33.0-37.0) g/dL RDW (11.5-14.5) % Plt Count (130-400) K/uL MPV (7.2-11.7) fL Neut % (Auto) (50.0-75.0) % Lymph % (Auto) (20.0-40.0) % [place] % (Auto) (0.0-10.0) % Eos % (Auto) (0.0-4.0) % Baso % (Auto) (0.0-2.0) % Neut # (Auto) (1.8-7.0) K/uL Lymph # (Auto) (1.0-4.3) K/uL [place] # (Auto) (0.0-0.8) K/uL Eos # (Auto) (0.0-0.7) K/uL Baso # (Auto) (0.0-0.2) K/uL Neutrophils % (Manual) (50-75) % Lymphocytes % (Manual) (20-40) % Reactive Lymphs % (0-0) % Monocytes % (Manual) (0-10) % Basophils % (Manual) (0-2) % Platelet Estimate (NORMAL) RBC Morphology Anisocytosis (manual) PT (9.7-12.2) SECONDS INR APTT 138 H* D (21-34) SECONDS D-Dimer, Quantitative (0-243) ng/mlDDU Sodium 127 L (132-148) mmol/L Potassium 3.0 L (3.6-5.2) mmol/L Chloride 91 L (98-107) mmol/L Carbon Dioxide 28 (22-30) mmol/L Anion Gap 11 (10-20) BUN 22 H (9-20) mg/dL Creatinine 1.3 (0.8-1.5) mg/dL Est GFR ( Amer) > 60 Est GFR (Non-Af Amer) 55 POC Glucose (mg/dL) (65-110) mg/dL Random Glucose 154 H (75-110) mg/dL Hemoglobin A1c (4.2-6.5) % Calcium 7.8 L (8.6-10.4) mg/dl Phosphorus (2.5-4.5) mg/dL Magnesium (1.6-2.3) mg/dL Total Bilirubin 0.8 (0.2-1.3) mg/dL AST 69 H D (17-59) U/L ALT 22 (21-72) U/L Alkaline Phosphatase 57 (38-126) U/L Troponin I 7.8000 H* (0.00-0.120) ng/mL NT-Pro-B Natriuret Pep (0-900) pg/mL Total Protein 6.3 (6.3-8.3) g/dL Albumin 3.3 L (3.5-5.0) g/dL Globulin 3.0 (2.2-3.9) gm/dL Albumin/Globulin Ratio 1.1 (1.0-2.1) Triglycerides (0-149) mg/dL Cholesterol (0-199) mg/dL LDL Cholesterol Direct (0-129) mg/dL HDL Cholesterol (30-70) mg/dL Lipase (23-300) U/L Urine Color Yellow (YELLOW) Urine Clarity Clear (Clear) Urine pH 5.0 (5.0-8.0) Ur Specific [place] 1.015 (1.003-1.030) Urine Protein Negative (NEGATIVE) mg/dL Urine Glucose (UA) Normal (Normal) mg/dL Urine Ketones Negative (NEGATIVE) mg/dL Urine Blood 1+ H (NEGATIVE) Urine Nitrate Negative (NEGATIVE) Urine Bilirubin Negative (NEGATIVE) Urine Urobilinogen Normal (0.2-1.0) mg/dL Ur Leukocyte Esterase Trace (Negative) Isreal/uL Urine WBC (Auto) 19 H (0-5) /hpf Urine RBC (Auto) 3 (0-3) /hpf Ur Squamous Epith Cells 5 (0-5) /hpf Urine Bacteria Rare (<OCC) Hyaline Casts (0-2) /lpf Urine Opiates Screen (NEGATIVE) Urine Methadone Screen (NEGATIVE) Ur Barbiturates Screen (NEGATIVE) Ur Phencyclidine Scrn (NEGATIVE) Ur Amphetamines Screen (NEGATIVE) U Benzodiazepines Scrn (NEGATIVE) U Oth Cocaine Metabols (NEGATIVE) U Cannabinoids Screen (NEGATIVE) 04/07/18 04/07/18 04/07/18 Range/Units 08:59 08:13 01:30 WBC 15.7 H 13.3 H (4.8-10.8) K/uL RBC 4.98 4.16 L (4.40-5.90) Mil/uL Hgb 13.6 D 11.3 L D (12.0-18.0) g/dL Hct 39.9 33.6 L (35.0-51.0) % MCV 80.3 80.7 (80.0-94.0) fL MCH 27.3 27.2 (27.0-31.0) pg MCHC 34.0 33.7 (33.0-37.0) g/dL RDW 16.7 H 16.7 H (11.5-14.5) % Plt Count 190 179 (130-400) K/uL MPV 8.2 8.8 (7.2-11.7) fL Neut % (Auto) 81.0 H (50.0-75.0) % Lymph % (Auto) 8.7 L (20.0-40.0) % [place] % (Auto) 10.1 H (0.0-10.0) % Eos % (Auto) 0.1 (0.0-4.0) % Baso % (Auto) 0.1 (0.0-2.0) % Neut # (Auto) 12.7 H (1.8-7.0) K/uL Lymph # (Auto) 1.4 (1.0-4.3) K/uL [place] # (Auto) 1.6 H (0.0-0.8) K/uL Eos # (Auto) 0.0 (0.0-0.7) K/uL Baso # (Auto) 0.0 (0.0-0.2) K/uL Neutrophils % (Manual) 83 H (50-75) % Lymphocytes % (Manual) 9 L (20-40) % Reactive Lymphs % 1 H (0-0) % Monocytes % (Manual) 6 (0-10) % Basophils % (Manual) 1 (0-2) % Platelet Estimate Normal (NORMAL) RBC Morphology Normal Anisocytosis (manual) Slight PT (9.7-12.2) SECONDS INR APTT 49 H D (21-34) SECONDS D-Dimer, Quantitative (0-243) ng/mlDDU Sodium (132-148) mmol/L Potassium (3.6-5.2) mmol/L Chloride (98-107) mmol/L Carbon Dioxide (22-30) mmol/L Anion Gap (10-20) BUN (9-20) mg/dL Creatinine (0.8-1.5) mg/dL Est GFR ( Amer) Est GFR (Non-Af Amer) POC Glucose (mg/dL) (65-110) mg/dL Random Glucose (75-110) mg/dL Hemoglobin A1c (4.2-6.5) % Calcium (8.6-10.4) mg/dl Phosphorus (2.5-4.5) mg/dL Magnesium (1.6-2.3) mg/dL Total Bilirubin (0.2-1.3) mg/dL AST (17-59) U/L ALT (21-72) U/L Alkaline Phosphatase (38-126) U/L Troponin I (0.00-0.120) ng/mL NT-Pro-B Natriuret Pep (0-900) pg/mL Total Protein (6.3-8.3) g/dL Albumin (3.5-5.0) g/dL Globulin (2.2-3.9) gm/dL Albumin/Globulin Ratio (1.0-2.1) Triglycerides (0-149) mg/dL Cholesterol (0-199) mg/dL LDL Cholesterol Direct (0-129) mg/dL HDL Cholesterol (30-70) mg/dL Lipase (23-300) U/L Urine Color (YELLOW) Urine Clarity (Clear) Urine pH (5.0-8.0) Ur Specific [place] (1.003-1.030) Urine Protein (NEGATIVE) mg/dL Urine Glucose (UA) (Normal) mg/dL Urine Ketones (NEGATIVE) mg/dL Urine Blood (NEGATIVE) Urine Nitrate (NEGATIVE) Urine Bilirubin (NEGATIVE) Urine Urobilinogen (0.2-1.0) mg/dL Ur Leukocyte Esterase (Negative) [place]/uL Urine WBC (Auto) (0-5) /hpf Urine RBC (Auto) (0-3) /hpf Ur Squamous Epith Cells (0-5) /hpf Urine Bacteria (<OCC) Hyaline Casts (0-2) /lpf Urine Opiates Screen (NEGATIVE) Urine Methadone Screen (NEGATIVE) Ur Barbiturates Screen (NEGATIVE) Ur Phencyclidine Scrn (NEGATIVE) Ur Amphetamines Screen (NEGATIVE) U Benzodiazepines Scrn (NEGATIVE) U Oth Cocaine Metabols (NEGATIVE) U Cannabinoids Screen (NEGATIVE) 04/07/18 04/07/18 04/07/18 Range/Units 01:23 01:23 01:23 WBC 16.5 H (4.8-10.8) K/uL RBC 5.58 (4.40-5.90) Mil/uL Hgb 15.3 (12.0-18.0) g/dL Hct 44.9 (35.0-51.0) % MCV 80.5 (80.0-94.0) fL MCH 27.4 (27.0-31.0) pg MCHC 34.0 (33.0-37.0) g/dL RDW 16.8 H (11.5-14.5) % Plt Count 214 (130-400) K/uL MPV 8.2 (7.2-11.7) fL Neut % (Auto) (50.0-75.0) % Lymph % (Auto) (20.0-40.0) % [place] % (Auto) (0.0-10.0) % Eos % (Auto) (0.0-4.0) % Baso % (Auto) (0.0-2.0) % Neut # (Auto) (1.8-7.0) K/uL Lymph # (Auto) (1.0-4.3) K/uL [place] # (Auto) (0.0-0.8) K/uL Eos # (Auto) (0.0-0.7) K/uL Baso # (Auto) (0.0-0.2) K/uL Neutrophils % (Manual) (50-75) % Lymphocytes % (Manual) (20-40) % Reactive Lymphs % (0-0) % Monocytes % (Manual) (0-10) % Basophils % (Manual) (0-2) % Platelet Estimate (NORMAL) RBC Morphology Anisocytosis (manual) PT (9.7-12.2) SECONDS INR APTT (21-34) SECONDS D-Dimer, Quantitative (0-243) ng/mlDDU Sodium 132 (132-148) mmol/L Potassium 3.4 L (3.6-5.2) mmol/L Chloride 92 L (98-107) mmol/L Carbon Dioxide 25 (22-30) mmol/L Anion Gap 17 (10-20) BUN 24 H (9-20) mg/dL Creatinine 1.3 (0.8-1.5) mg/dL Est GFR ( Amer) > 60 Est GFR (Non-Af Amer) 55 POC Glucose (mg/dL) (65-110) mg/dL Random Glucose 150 H (75-110) mg/dL Hemoglobin A1c (4.2-6.5) % Calcium 9.0 (8.6-10.4) mg/dl Phosphorus 3.7 (2.5-4.5) mg/dL Magnesium 1.8 (1.6-2.3) mg/dL Total Bilirubin 0.9 (0.2-1.3) mg/dL AST 89 H D (17-59) U/L ALT 18 L D (21-72) U/L Alkaline Phosphatase 75 (38-126) U/L Troponin I 12.0000 H* (0.00-0.120) ng/mL NT-Pro-B Natriuret Pep (0-900) pg/mL Total Protein 7.1 (6.3-8.3) g/dL Albumin 3.9 (3.5-5.0) g/dL Globulin 3.2 (2.2-3.9) gm/dL Albumin/Globulin Ratio 1.2 (1.0-2.1) Triglycerides 86 (0-149) mg/dL Cholesterol 177 (0-199) mg/dL LDL Cholesterol Direct 95 (0-129) mg/dL HDL Cholesterol 56 (30-70) mg/dL Lipase (23-300) U/L Urine Color (YELLOW) Urine Clarity (Clear) Urine pH (5.0-8.0) Ur Specific [place] (1.003-1.030) Urine Protein (NEGATIVE) mg/dL Urine Glucose (UA) (Normal) mg/dL Urine Ketones (NEGATIVE) mg/dL Urine Blood (NEGATIVE) Urine Nitrate (NEGATIVE) Urine Bilirubin (NEGATIVE) Urine Urobilinogen (0.2-1.0) mg/dL Ur Leukocyte Esterase (Negative) Isreal/uL Urine WBC (Auto) (0-5) /hpf Urine RBC (Auto) (0-3) /hpf Ur Squamous Epith Cells (0-5) /hpf Urine Bacteria (<OCC) Hyaline Casts (0-2) /lpf Urine Opiates Screen (NEGATIVE) Urine Methadone Screen (NEGATIVE) Ur Barbiturates Screen (NEGATIVE) Ur Phencyclidine Scrn (NEGATIVE) Ur Amphetamines Screen (NEGATIVE) U Benzodiazepines Scrn (NEGATIVE) U Oth Cocaine Metabols (NEGATIVE) U Cannabinoids Screen (NEGATIVE) 04/07/18 04/06/18 04/06/18 Range/Units 00:30 20:20 20:20 WBC (4.8-10.8) K/uL RBC (4.40-5.90) Mil/uL Hgb (12.0-18.0) g/dL Hct (35.0-51.0) % MCV (80.0-94.0) fL MCH (27.0-31.0) pg MCHC (33.0-37.0) g/dL RDW (11.5-14.5) % Plt Count (130-400) K/uL MPV (7.2-11.7) fL Neut % (Auto) (50.0-75.0) % Lymph % (Auto) (20.0-40.0) % [place] % (Auto) (0.0-10.0) % Eos % (Auto) (0.0-4.0) % Baso % (Auto) (0.0-2.0) % Neut # (Auto) (1.8-7.0) K/uL Lymph # (Auto) (1.0-4.3) K/uL [place] # (Auto) (0.0-0.8) K/uL Eos # (Auto) (0.0-0.7) K/uL Baso # (Auto) (0.0-0.2) K/uL Neutrophils % (Manual) (50-75) % Lymphocytes % (Manual) (20-40) % Reactive Lymphs % (0-0) % Monocytes % (Manual) (0-10) % Basophils % (Manual) (0-2) % Platelet Estimate (NORMAL) RBC Morphology Anisocytosis (manual) PT (9.7-12.2) SECONDS INR APTT (21-34) SECONDS D-Dimer, Quantitative (0-243) ng/mlDDU Sodium (132-148) mmol/L Potassium (3.6-5.2) mmol/L Chloride (98-107) mmol/L Carbon Dioxide (22-30) mmol/L Anion Gap (10-20) BUN (9-20) mg/dL Creatinine (0.8-1.5) mg/dL Est GFR ( Amer) Est GFR (Non-Af Amer) POC Glucose (mg/dL) (65-110) mg/dL Random Glucose (75-110) mg/dL Hemoglobin A1c 6.5 (4.2-6.5) % Calcium (8.6-10.4) mg/dl Phosphorus (2.5-4.5) mg/dL Magnesium (1.6-2.3) mg/dL Total Bilirubin (0.2-1.3) mg/dL AST (17-59) U/L ALT (21-72) U/L Alkaline Phosphatase (38-126) U/L Troponin I (0.00-0.120) ng/mL NT-Pro-B Natriuret Pep (0-900) pg/mL Total Protein (6.3-8.3) g/dL Albumin (3.5-5.0) g/dL Globulin (2.2-3.9) gm/dL Albumin/Globulin Ratio (1.0-2.1) Triglycerides (0-149) mg/dL Cholesterol (0-199) mg/dL LDL Cholesterol Direct (0-129) mg/dL HDL Cholesterol (30-70) mg/dL Lipase (23-300) U/L Urine Color Jessica (YELLOW) Urine Clarity Hazy (Clear) Urine pH 5.0 (5.0-8.0) Ur Specific [place] 1.031 H (1.003-1.030) Urine Protein 2+ H (NEGATIVE) mg/dL Urine Glucose (UA) Normal (Normal) mg/dL Urine Ketones Negative (NEGATIVE) mg/dL Urine Blood 1+ H (NEGATIVE) Urine Nitrate Negative (NEGATIVE) Urine Bilirubin Negative (NEGATIVE) Urine Urobilinogen 2.0 (0.2-1.0) mg/dL Ur Leukocyte Esterase 3+ H (Negative) Isreal/uL Urine WBC (Auto) 74 H (0-5) /hpf Urine RBC (Auto) 9 H (0-3) /hpf Ur Squamous Epith Cells 5 (0-5) /hpf Urine Bacteria Few H (<OCC) Hyaline Casts 11-20 H (0-2) /lpf Urine Opiates Screen Positive H (NEGATIVE) Urine Methadone Screen Negative (NEGATIVE) Ur Barbiturates Screen Negative (NEGATIVE) Ur Phencyclidine Scrn Negative (NEGATIVE) Ur Amphetamines Screen Negative (NEGATIVE) U Benzodiazepines Scrn Negative (NEGATIVE) U Oth Cocaine Metabols Negative (NEGATIVE) U Cannabinoids Screen Negative (NEGATIVE) 04/06/18 04/06/18 04/06/18 Range/Units 18:38 18:23 18:23 WBC (4.8-10.8) K/uL RBC (4.40-5.90) Mil/uL Hgb (12.0-18.0) g/dL Hct (35.0-51.0) % MCV (80.0-94.0) fL MCH (27.0-31.0) pg MCHC (33.0-37.0) g/dL RDW (11.5-14.5) % Plt Count (130-400) K/uL MPV (7.2-11.7) fL Neut % (Auto) (50.0-75.0) % Lymph % (Auto) (20.0-40.0) % [place] % (Auto) (0.0-10.0) % Eos % (Auto) (0.0-4.0) % Baso % (Auto) (0.0-2.0) % Neut # (Auto) (1.8-7.0) K/uL Lymph # (Auto) (1.0-4.3) K/uL [place] # (Auto) (0.0-0.8) K/uL Eos # (Auto) (0.0-0.7) K/uL Baso # (Auto) (0.0-0.2) K/uL Neutrophils % (Manual) (50-75) % Lymphocytes % (Manual) (20-40) % Reactive Lymphs % (0-0) % Monocytes % (Manual) (0-10) % Basophils % (Manual) (0-2) % Platelet Estimate (NORMAL) RBC Morphology Anisocytosis (manual) PT 12.1 (9.7-12.2) SECONDS INR 1.1 APTT 36 H (21-34) SECONDS D-Dimer, Quantitative 281 H (0-243) ng/mlDDU Sodium 138 (132-148) mmol/L Potassium 3.9 (3.6-5.2) mmol/L Chloride 95 L (98-107) mmol/L Carbon Dioxide 31 H (22-30) mmol/L Anion Gap 16 (10-20) BUN 24 H (9-20) mg/dL Creatinine 1.7 H (0.8-1.5) mg/dL Est GFR ( Amer) 49 Est GFR (Non-Af Amer) 41 POC Glucose (mg/dL) 144 H (65-110) mg/dL Random Glucose 140 H (75-110) mg/dL Hemoglobin A1c (4.2-6.5) % Calcium 9.8 (8.6-10.4) mg/dl Phosphorus (2.5-4.5) mg/dL Magnesium (1.6-2.3) mg/dL Total Bilirubin 1.1 (0.2-1.3) mg/dL AST 126 H (17-59) U/L ALT 41 (21-72) U/L Alkaline Phosphatase 87 (38-126) U/L Troponin I 14.1000 H* (0.00-0.120) ng/mL NT-Pro-B Natriuret Pep 2260 H (0-900) pg/mL Total Protein 8.3 (6.3-8.3) g/dL Albumin 4.4 (3.5-5.0) g/dL Globulin 3.9 (2.2-3.9) gm/dL Albumin/Globulin Ratio 1.1 (1.0-2.1) Triglycerides (0-149) mg/dL Cholesterol (0-199) mg/dL LDL Cholesterol Direct (0-129) mg/dL HDL Cholesterol (30-70) mg/dL Lipase 52 (23-300) U/L Urine Color (YELLOW) Urine Clarity (Clear) Urine pH (5.0-8.0) Ur Specific [place] (1.003-1.030) Urine Protein (NEGATIVE) mg/dL Urine Glucose (UA) (Normal) mg/dL Urine Ketones (NEGATIVE) mg/dL Urine Blood (NEGATIVE) Urine Nitrate (NEGATIVE) Urine Bilirubin (NEGATIVE) Urine Urobilinogen (0.2-1.0) mg/dL Ur Leukocyte Esterase (Negative) Isreal/uL Urine WBC (Auto) (0-5) /hpf Urine RBC (Auto) (0-3) /hpf Ur Squamous Epith Cells (0-5) /hpf Urine Bacteria (<OCC) Hyaline Casts (0-2) /lpf Urine Opiates Screen (NEGATIVE) Urine Methadone Screen (NEGATIVE) Ur Barbiturates Screen (NEGATIVE) Ur Phencyclidine Scrn (NEGATIVE) Ur Amphetamines Screen (NEGATIVE) U Benzodiazepines Scrn (NEGATIVE) U Oth Cocaine Metabols (NEGATIVE) U Cannabinoids Screen (NEGATIVE) 04/06/18 Range/Units 18:23 WBC 16.9 H D (4.8-10.8) K/uL RBC 6.08 H (4.40-5.90) Mil/uL Hgb 16.8 (12.0-18.0) g/dL Hct 48.9 (35.0-51.0) % MCV 80.3 (80.0-94.0) fL MCH 27.6 (27.0-31.0) pg MCHC 34.4 (33.0-37.0) g/dL RDW 16.7 H (11.5-14.5) % Plt Count 236 (130-400) K/uL MPV 7.9 (7.2-11.7) fL Neut % (Auto) 76.1 H (50.0-75.0) % Lymph % (Auto) 13.3 L (20.0-40.0) % [place] % (Auto) 10.1 H (0.0-10.0) % Eos % (Auto) 0.1 (0.0-4.0) % Baso % (Auto) 0.4 (0.0-2.0) % Neut # (Auto) 12.9 H (1.8-7.0) K/uL Lymph # (Auto) 2.2 (1.0-4.3) K/uL [place] # (Auto) 1.7 H (0.0-0.8) K/uL Eos # (Auto) 0.0 (0.0-0.7) K/uL Baso # (Auto) 0.1 (0.0-0.2) K/uL Neutrophils % (Manual) (50-75) % Lymphocytes % (Manual) (20-40) % Reactive Lymphs % (0-0) % Monocytes % (Manual) (0-10) % Basophils % (Manual) (0-2) % Platelet Estimate (NORMAL) RBC Morphology Anisocytosis (manual) PT (9.7-12.2) SECONDS INR APTT (21-34) SECONDS D-Dimer, Quantitative (0-243) ng/mlDDU Sodium (132-148) mmol/L Potassium (3.6-5.2) mmol/L Chloride (98-107) mmol/L Carbon Dioxide (22-30) mmol/L Anion Gap (10-20) BUN (9-20) mg/dL Creatinine (0.8-1.5) mg/dL Est GFR ( Amer) Est GFR (Non-Af Amer) POC Glucose (mg/dL) (65-110) mg/dL Random Glucose (75-110) mg/dL Hemoglobin A1c (4.2-6.5) % Calcium (8.6-10.4) mg/dl Phosphorus (2.5-4.5) mg/dL Magnesium (1.6-2.3) mg/dL Total Bilirubin (0.2-1.3) mg/dL AST (17-59) U/L ALT (21-72) U/L Alkaline Phosphatase (38-126) U/L Troponin I (0.00-0.120) ng/mL NT-Pro-B Natriuret Pep (0-900) pg/mL Total Protein (6.3-8.3) g/dL Albumin (3.5-5.0) g/dL Globulin (2.2-3.9) gm/dL Albumin/Globulin Ratio (1.0-2.1) Triglycerides (0-149) mg/dL Cholesterol (0-199) mg/dL LDL Cholesterol Direct (0-129) mg/dL HDL Cholesterol (30-70) mg/dL Lipase (23-300) U/L Urine Color (YELLOW) Urine Clarity (Clear) Urine pH (5.0-8.0) Ur Specific [place] (1.003-1.030) Urine Protein (NEGATIVE) mg/dL Urine Glucose (UA) (Normal) mg/dL Urine Ketones (NEGATIVE) mg/dL Urine Blood (NEGATIVE) Urine Nitrate (NEGATIVE) Urine Bilirubin (NEGATIVE) Urine Urobilinogen (0.2-1.0) mg/dL Ur Leukocyte Esterase (Negative) Isreal/uL Urine WBC (Auto) (0-5) /hpf Urine RBC (Auto) (0-3) /hpf Ur Squamous Epith Cells (0-5) /hpf Urine Bacteria (<OCC) Hyaline Casts (0-2) /lpf Urine Opiates Screen (NEGATIVE) Urine Methadone Screen (NEGATIVE) Ur Barbiturates Screen (NEGATIVE) Ur Phencyclidine Scrn (NEGATIVE) Ur Amphetamines Screen (NEGATIVE) U Benzodiazepines Scrn (NEGATIVE) U Oth Cocaine Metabols (NEGATIVE) U Cannabinoids Screen (NEGATIVE) Laboratory Results - last 24 hr 04/06/18 04/06/18 04/06/18 18:23 18:23 18:23 WBC 16.9 H D RBC 6.08 H Hgb 16.8 Hct 48.9 MCV 80.3 MCH 27.6 MCHC 34.4 RDW 16.7 H Plt Count 236 MPV 7.9 Neut % (Auto) 76.1 H Lymph % (Auto) 13.3 L [place] % (Auto) 10.1 H Eos % (Auto) 0.1 Baso % (Auto) 0.4 Neut # (Auto) 12.9 H Lymph # (Auto) 2.2 [place] # (Auto) 1.7 H Eos # (Auto) 0.0 Baso # (Auto) 0.1 Neutrophils % (Manual) Lymphocytes % (Manual) Reactive Lymphs % Monocytes % (Manual) Basophils % (Manual) Platelet Estimate RBC Morphology Anisocytosis (manual) PT 12.1 INR 1.1 APTT 36 H D-Dimer, Quantitative 281 H Sodium 138 Potassium 3.9 Chloride 95 L Carbon Dioxide 31 H Anion Gap 16 BUN 24 H Creatinine 1.7 H Est GFR ( Amer) 49 Est GFR (Non-Af Amer) 41 POC Glucose (mg/dL) Random Glucose 140 H Hemoglobin A1c Calcium 9.8 Phosphorus Magnesium Total Bilirubin 1.1 AST 126 H ALT 41 Alkaline Phosphatase 87 Troponin I 14.1000 H* NT-Pro-B Natriuret Pep 2260 H Total Protein 8.3 Albumin 4.4 Globulin 3.9 Albumin/Globulin Ratio 1.1 Triglycerides Cholesterol LDL Cholesterol Direct HDL Cholesterol Lipase 52 Urine Color Urine Clarity Urine pH Ur Specific [place] Urine Protein Urine Glucose (UA) Urine Ketones Urine Blood Urine Nitrate Urine Bilirubin Urine Urobilinogen Ur Leukocyte Esterase Urine WBC (Auto) Urine RBC (Auto) Ur Squamous Epith Cells Urine Bacteria Hyaline Casts Urine Opiates Screen Urine Methadone Screen Ur Barbiturates Screen Ur Phencyclidine Scrn Ur Amphetamines Screen U Benzodiazepines Scrn U Oth Cocaine Metabols U Cannabinoids Screen 04/06/18 04/06/18 04/06/18 18:38 20:20 20:20 WBC RBC Hgb Hct MCV MCH MCHC RDW Plt Count MPV Neut % (Auto) Lymph % (Auto) [place] % (Auto) Eos % (Auto) Baso % (Auto) Neut # (Auto) Lymph # (Auto) [place] # (Auto) Eos # (Auto) Baso # (Auto) Neutrophils % (Manual) Lymphocytes % (Manual) Reactive Lymphs % Monocytes % (Manual) Basophils % (Manual) Platelet Estimate RBC Morphology Anisocytosis (manual) PT INR APTT D-Dimer, Quantitative Sodium Potassium Chloride Carbon Dioxide Anion Gap BUN Creatinine Est GFR ( Amer) Est GFR (Non-Af Amer) POC Glucose (mg/dL) 144 H Random Glucose Hemoglobin A1c Calcium Phosphorus Magnesium Total Bilirubin AST ALT Alkaline Phosphatase Troponin I NT-Pro-B Natriuret Pep Total Protein Albumin Globulin Albumin/Globulin Ratio Triglycerides Cholesterol LDL Cholesterol Direct HDL Cholesterol Lipase Urine Color Jessica Urine Clarity Hazy Urine pH 5.0 Ur Specific [place] 1.031 H Urine Protein 2+ H Urine Glucose (UA) Normal Urine Ketones Negative Urine Blood 1+ H Urine Nitrate Negative Urine Bilirubin Negative Urine Urobilinogen 2.0 Ur Leukocyte Esterase 3+ H Urine WBC (Auto) 74 H Urine RBC (Auto) 9 H Ur Squamous Epith Cells 5 Urine Bacteria Few H Hyaline Casts 11-20 H Urine Opiates Screen Positive H Urine Methadone Screen Negative Ur Barbiturates Screen Negative Ur Phencyclidine Scrn Negative Ur Amphetamines Screen Negative U Benzodiazepines Scrn Negative U Oth Cocaine Metabols Negative U Cannabinoids Screen Negative 04/07/18 04/07/18 04/07/18 00:30 01:23 01:23 WBC 16.5 H RBC 5.58 Hgb 15.3 Hct 44.9 MCV 80.5 MCH 27.4 MCHC 34.0 RDW 16.8 H Plt Count 214 MPV 8.2 Neut % (Auto) Lymph % (Auto) [place] % (Auto) Eos % (Auto) Baso % (Auto) Neut # (Auto) Lymph # (Auto) [place] # (Auto) Eos # (Auto) Baso # (Auto) Neutrophils % (Manual) Lymphocytes % (Manual) Reactive Lymphs % Monocytes % (Manual) Basophils % (Manual) Platelet Estimate RBC Morphology Anisocytosis (manual) PT INR APTT D-Dimer, Quantitative Sodium Potassium Chloride Carbon Dioxide Anion Gap BUN Creatinine Est GFR ( Amer) Est GFR (Non-Af Amer) POC Glucose (mg/dL) Random Glucose Hemoglobin A1c 6.5 Calcium Phosphorus Magnesium Total Bilirubin AST ALT Alkaline Phosphatase Troponin I NT-Pro-B Natriuret Pep Total Protein Albumin Globulin Albumin/Globulin Ratio Triglycerides 86 Cholesterol 177 LDL Cholesterol Direct 95 HDL Cholesterol 56 Lipase Urine Color Urine Clarity Urine pH Ur Specific [place] Urine Protein Urine Glucose (UA) Urine Ketones Urine Blood Urine Nitrate Urine Bilirubin Urine Urobilinogen Ur Leukocyte Esterase Urine WBC (Auto) Urine RBC (Auto) Ur Squamous Epith Cells Urine Bacteria Hyaline Casts Urine Opiates Screen Urine Methadone Screen Ur Barbiturates Screen Ur Phencyclidine Scrn Ur Amphetamines Screen U Benzodiazepines Scrn U Oth Cocaine Metabols U Cannabinoids Screen 04/07/18 04/07/18 04/07/18 01:23 01:30 08:13 WBC 13.3 H RBC 4.16 L Hgb 11.3 L D Hct 33.6 L MCV 80.7 MCH 27.2 MCHC 33.7 RDW 16.7 H Plt Count 179 MPV 8.8 Neut % (Auto) Lymph % (Auto) [place] % (Auto) Eos % (Auto) Baso % (Auto) Neut # (Auto) Lymph # (Auto) [place] # (Auto) Eos # (Auto) Baso # (Auto) Neutrophils % (Manual) Lymphocytes % (Manual) Reactive Lymphs % Monocytes % (Manual) Basophils % (Manual) Platelet Estimate RBC Morphology Anisocytosis (manual) PT INR APTT 49 H D D-Dimer, Quantitative Sodium 132 Potassium 3.4 L Chloride 92 L Carbon Dioxide 25 Anion Gap 17 BUN 24 H Creatinine 1.3 Est GFR ( Amer) > 60 Est GFR (Non-Af Amer) 55 POC Glucose (mg/dL) Random Glucose 150 H Hemoglobin A1c Calcium 9.0 Phosphorus 3.7 Magnesium 1.8 Total Bilirubin 0.9 AST 89 H D ALT 18 L D Alkaline Phosphatase 75 Troponin I 12.0000 H* NT-Pro-B Natriuret Pep Total Protein 7.1 Albumin 3.9 Globulin 3.2 Albumin/Globulin Ratio 1.2 Triglycerides Cholesterol LDL Cholesterol Direct HDL Cholesterol Lipase Urine Color Urine Clarity Urine pH Ur Specific [place] Urine Protein Urine Glucose (UA) Urine Ketones Urine Blood Urine Nitrate Urine Bilirubin Urine Urobilinogen Ur Leukocyte Esterase Urine WBC (Auto) Urine RBC (Auto) Ur Squamous Epith Cells Urine Bacteria Hyaline Casts Urine Opiates Screen Urine Methadone Screen Ur Barbiturates Screen Ur Phencyclidine Scrn Ur Amphetamines Screen U Benzodiazepines Scrn U Oth Cocaine Metabols U Cannabinoids Screen 04/07/18 04/07/18 04/07/18 08:59 08:59 08:59 WBC 15.7 H RBC 4.98 Hgb 13.6 D Hct 39.9 MCV 80.3 MCH 27.3 MCHC 34.0 RDW 16.7 H Plt Count 190 MPV 8.2 Neut % (Auto) 81.0 H Lymph % (Auto) 8.7 L [place] % (Auto) 10.1 H Eos % (Auto) 0.1 Baso % (Auto) 0.1 Neut # (Auto) 12.7 H Lymph # (Auto) 1.4 [place] # (Auto) 1.6 H Eos # (Auto) 0.0 Baso # (Auto) 0.0 Neutrophils % (Manual) 83 H Lymphocytes % (Manual) 9 L Reactive Lymphs % 1 H Monocytes % (Manual) 6 Basophils % (Manual) 1 Platelet Estimate Normal RBC Morphology Normal Anisocytosis (manual) Slight PT INR APTT 138 H* D D-Dimer, Quantitative Sodium 127 L Potassium 3.0 L Chloride 91 L Carbon Dioxide 28 Anion Gap 11 BUN 22 H Creatinine 1.3 Est GFR ( Amer) > 60 Est GFR (Non-Af Amer) 55 POC Glucose (mg/dL) Random Glucose 154 H Hemoglobin A1c Calcium 7.8 L Phosphorus Magnesium Total Bilirubin 0.8 AST 69 H D ALT 22 Alkaline Phosphatase 57 Troponin I 7.8000 H* NT-Pro-B Natriuret Pep Total Protein 6.3 Albumin 3.3 L Globulin 3.0 Albumin/Globulin Ratio 1.1 Triglycerides Cholesterol LDL Cholesterol Direct HDL Cholesterol Lipase Urine Color Urine Clarity Urine pH Ur Specific [place] Urine Protein Urine Glucose (UA) Urine Ketones Urine Blood Urine Nitrate Urine Bilirubin Urine Urobilinogen Ur Leukocyte Esterase Urine WBC (Auto) Urine RBC (Auto) Ur Squamous Epith Cells Urine Bacteria Hyaline Casts Urine Opiates Screen Urine Methadone Screen Ur Barbiturates Screen Ur Phencyclidine Scrn Ur Amphetamines Screen U Benzodiazepines Scrn U Oth Cocaine Metabols U Cannabinoids Screen 04/07/18 04/07/18 04/07/18 10:24 11:14 16:04 WBC RBC Hgb Hct MCV MCH MCHC RDW Plt Count MPV Neut % (Auto) Lymph % (Auto) [place] % (Auto) Eos % (Auto) Baso % (Auto) Neut # (Auto) Lymph # (Auto) [place] # (Auto) Eos # (Auto) Baso # (Auto) Neutrophils % (Manual) Lymphocytes % (Manual) Reactive Lymphs % Monocytes % (Manual) Basophils % (Manual) Platelet Estimate RBC Morphology Anisocytosis (manual) PT INR APTT D-Dimer, Quantitative Sodium Potassium Chloride Carbon Dioxide Anion Gap BUN Creatinine Est GFR ( Amer) Est GFR (Non-Af Amer) POC Glucose (mg/dL) 153 H 132 H Random Glucose Hemoglobin A1c Calcium Phosphorus Magnesium Total Bilirubin AST ALT Alkaline Phosphatase Troponin I NT-Pro-B Natriuret Pep Total Protein Albumin Globulin Albumin/Globulin Ratio Triglycerides Cholesterol LDL Cholesterol Direct HDL Cholesterol Lipase Urine Color Yellow Urine Clarity Clear Urine pH 5.0 Ur Specific [place] 1.015 Urine Protein Negative Urine Glucose (UA) Normal Urine Ketones Negative Urine Blood 1+ H Urine Nitrate Negative Urine Bilirubin Negative Urine Urobilinogen Normal Ur Leukocyte Esterase Trace Urine WBC (Auto) 19 H Urine RBC (Auto) 3 Ur Squamous Epith Cells 5 Urine Bacteria Rare Hyaline Casts Urine Opiates Screen Urine Methadone Screen Ur Barbiturates Screen Ur Phencyclidine Scrn Ur Amphetamines Screen U Benzodiazepines Scrn U Oth Cocaine Metabols U Cannabinoids Screen 04/07/18 17:47 WBC RBC Hgb Hct MCV MCH MCHC RDW Plt Count MPV Neut % (Auto) Lymph % (Auto) [place] % (Auto) Eos % (Auto) Baso % (Auto) Neut # (Auto) Lymph # (Auto) [place] # (Auto) Eos # (Auto) Baso # (Auto) Neutrophils % (Manual) Lymphocytes % (Manual) Reactive Lymphs % Monocytes % (Manual) Basophils % (Manual) Platelet Estimate RBC Morphology Anisocytosis (manual) PT INR APTT 29 D D-Dimer, Quantitative Sodium Potassium Chloride Carbon Dioxide Anion Gap BUN Creatinine Est GFR ( Amer) Est GFR (Non-Af Amer) POC Glucose (mg/dL) Random Glucose Hemoglobin A1c Calcium Phosphorus Magnesium Total Bilirubin AST ALT Alkaline Phosphatase Troponin I NT-Pro-B Natriuret Pep Total Protein Albumin Globulin Albumin/Globulin Ratio Triglycerides Cholesterol LDL Cholesterol Direct HDL Cholesterol Lipase Urine Color Urine Clarity Urine pH Ur Specific Rochert Urine Protein Urine Glucose (UA) Urine Ketones Urine Blood Urine Nitrate Urine Bilirubin Urine Urobilinogen Ur Leukocyte Esterase Urine WBC (Auto) Urine RBC (Auto) Ur Squamous Epith Cells Urine Bacteria Hyaline Casts Urine Opiates Screen Urine Methadone Screen Ur Barbiturates Screen Ur Phencyclidine Scrn Ur Amphetamines Screen U Benzodiazepines Scrn U Oth Cocaine Metabols U Cannabinoids Screen EKG/Cardiology Studies: Cardiology / EKG Studies 04/06/18 18:11 EKG [ELECTROCARDIOGRAM] Stat Comment: Mode Of Transportation: BED Reason For Exam: cp 04/07/18 07:00 ELECTROCARDIOGRAM Routine Comment: Mode Of Transportation: PORTABLE Reason For Exam: acute Coronaryy syndrome Critical Care Progress Note - Nutrition Nutrition: Nutrition Category Date Time Status Heart Healthy Diet [DIET] Diets 04/07/18 Dinner Active Attending/Attestation - Attestation I have personally seen and examined this patient.: Yes I have fully participated in the care of the patient.: Yes I have reviewed all pertinent clinical information: Yes Notes (Text): 04/07/18 18:33 patient seen and examined in the intensive care unit. Patient treated for non-ST elevation ND Possible cardiac cath tomorrow Continue present treatment No further chest pain Clinically stable
[2018-04-07 08:22] LABS: MEAN CELL VOLUME 80.7 fL (80.0-94.0); MEAN CORPUSCULAR HEMOGLOBIN 27.2 pg (27.0-31.0); MEAN CORPUSCULAR HGB CONC 33.7 g/dL (33.0-37.0); MEAN PLATELET VOLUME 8.8 fL (7.2-11.7); RBC 4.16 Mil/uL (4.40-5.90); RED CELL DISTRIBUTION WIDTH 16.7 % (11.5-14.5); WHITE BLOOD COUNT 13.3 K/uL (4.8-10.8)
[2018-04-07 08:29] LABS: HEMOGLOBIN 11.3 g/dL (12.0-18.0)
[2018-04-07 09:07] LABS: BASO % 0.1 % (0.0-2.0); EOS % 0.1 % (0.0-4.0); LYMPH # 1.4 K/uL (1.0-4.3); LYMPH % 8.7 % (20.0-40.0); MEAN CELL VOLUME 80.3 fL (80.0-94.0); MEAN CORPUSCULAR HEMOGLOBIN 27.3 pg (27.0-31.0); MEAN PLATELET VOLUME 8.2 fL (7.2-11.7); MONO # 1.6 K/uL (0.0-0.8); MONO % 10.1 % (0.0-10.0); NEUT # 12.7 K/uL (1.8-7.0); PLATELET COUNT 190 K/uL (130-400); RBC 4.98 Mil/uL (4.40-5.90); RED CELL DISTRIBUTION WIDTH 16.7 % (11.5-14.5); WHITE BLOOD COUNT 15.7 K/uL (4.8-10.8)
[2018-04-07 09:13] LABS: HEMOGLOBIN 13.6 g/dL (12.0-18.0)
[2018-04-07 09:25] LABS: ALB/GLOB RATIO 1.1 (1.0-2.1); ALBUMIN 3.3 g/dL (3.5-5.0); ALT/SGPT 22 U/L (21-72); AST/SGOT 69 U/L (17-59); BLOOD UREA NITROGEN 22 mg/dL (9-20); CALCIUM 7.8 mg/dl (8.6-10.4); GFR AFRICAN-AMERICAN > 60; GFR NON-AFRICAN AMERICAN 55
[2018-04-07] MEDS: Pantoprazole 40 mg EC Tab PO SCH (09:27)
[2018-04-07 09:49] LABS: ANISOCYTOSIS SLIGHT; BASOPHIL 1 % (0-2); LYMPHOCYTE 9 % (20-40); MONOCYTE 6 % (0-10); NEUTROPHIL 83 % (50-75); PLATELET ESTIMATE NORMAL (NORMAL); REACTIVE LYMPHOCYTES 1 % (0-0); TOTAL CELLS COUNTED 100
[2018-04-07 11:04] LABS: SQUAMOUS EPITHIAL 5 /hpf (0-5); URINE BACTERIA RARE (<OCC); URINE BILIRUBIN NEGATIVE (NEGATIVE); URINE BLOOD 1+ (NEGATIVE); URINE CLARITY Clear (Clear); URINE COLOR Yellow (YELLOW); URINE GLUCOSE (UA) NORMAL (Normal); URINE LEUKOCYTE ESTERASE TRACE Leu/uL (Negative); URINE PROTEIN NEGATIVE (NEGATIVE); URINE UROBILINOGEN NORMAL mg/dL (0.2-1.0)
[2018-04-07] MEDS: Potassium Chloride 20 mEq ER Tab PO SCH ×2 (11:14→15:00)
[2018-04-07] MEDS: (Novolin R) Insulin Human Regular 100 units/ml vial SC SCH ×3 (11:22→21:32)
[2018-04-07] MEDS ORDERED: Potassium Chloride 20 mEq ER Tab PO SCH (16:15)
[2018-04-07 16:47] VITALS: TEMP 98.3
[2018-04-07] MEDS: Sodium Chloride 0.45% 1,000 ML IV SCH (17:01)
--- NOTE | 2018-04-07 18:25 | CP.PCM.PCO ---
Physician Communication Note - Physician Communication Note Physician Communication Note: scheduled for cath at [facility]. NPO after midnight
[2018-04-07] MEDS: Heparin25000 units/250ml 1/2NS 25,000 UNITS/250 ML BAG IV PRN (20:48)
--- NOTE | 2018-04-07 21:51 | HP ---
HISTORY OF PRESENT ILLNESS: A 67-year-old -[place] male who was brought in with a history of crushing chest pain which started 24 hours prior to admission. He has a longstanding history of hypertension and mild chronic kidney disease. His last creatinine was 1.5. The patient was last seen at the office in October. About 2 to 3 weeks ago, the patient stopped taking all medications. He was on a Coreg which was increased to 12.5 twice a day. He was on valsartan, baby aspirin. The patient could not afford and he stopped taking all the medicines. Day before, he had a crushing chest pain, came subsequently to the emergency room and EKG had shown right bundle branch block, left axis deviation and troponin was elevated to 14. The patient was seen by Dr. Damion Lam and was admitted to ICU. PERSONAL HISTORY: Half a pack per day smoking for more than 40 years. No ETOH abuse. ALLERGIES: DENIED. FAMILY HISTORY: Mother has a history of hypertension. REVIEW OF SYSTEMS: Negative for generalized weakness, fever, chills. Eyes: No visual disturbances. Neck: No swollen glands. Respiratory: Negative for cough, wheeze, or hemoptysis. Cardiac: Dyspnea on exertion. No PND. No previous documented MO. GI: Negative for hematemesis or melena. Neurologic: Negative for TIAs or CVAs. Musculoskeletal system: Negative for joint pains. : Negative for hematuria or frequency. The patient has been seen by Dr. Holland in the past. PAST MEDICAL HISTORY: Negative for any medical problems or surgical problems. PHYSICAL EXAMINATION: GENERAL: Shows an elderly gentleman who is conscious, alert, well oriented, in no acute distress. VITAL SIGNS: He is about 205 pounds, and he is 5 feet 10 inches. His blood pressure is 140/70, heart rate of 88, sinus on the monitor, respiratory rate of 12, temperature of 97. HEENT: Head is normocephalic. Eyes, no pallor, no icterus. NECK: Supple. LUNGS: Clear to auscultation bilaterally. CARDIAC: PMI is normal. No JVD. S1, S2 normal. Prominent S4 gallop. Grade 1/6 to 2/6 early systolic ejection murmur in mitral and aortic area. ABDOMEN: Soft and nontender. EXTREMITIES: No cyanosis, clubbing, or edema. Distal pulses are intact. NEUROLOGIC: No focal signs. PSYCHIATRIC: No evidence of depression. LABORATORY DATA: EKG sinus rhythm, right bundle branch block. Troponins were elevated to 14. Creatinine is 1.7. ASSESSMENT: A 67-year-old gentleman with history of non-ST elevation myocardial infarction. Hypertension. Chronic kidney disease. PLAN: At this point is to control the blood pressure, nitrates, beta blockers. We will obtain echocardiogram. The patient is stable at this point, but will need eventually coronary angiogram. Care of plan was explained to the patient. We will transfer to [facility] as the patient is more likely to need intervention also. Mohan Latham MD
[2018-04-07] MEDS: Nitroglycerin 50mg in D5W 50 MG/250 ML BOTTLE IV SCH (22:00)
[2018-04-08] MEDS: Sodium Chloride 0.45% 1,000 ML IV SCH (01:40)
[2018-04-08] MEDS: Nitroglycerin 50mg in D5W 50 MG/250 ML BOTTLE IV SCH (06:22)
[2018-04-08 06:27] LABS: BASO % 0.2 % (0.0-2.0); EOS % 0.1 % (0.0-4.0); HEMOGLOBIN 13.7 g/dL (12.0-18.0); LYMPH # 1.3 K/uL (1.0-4.3); LYMPH % 9.5 % (20.0-40.0); MEAN CELL VOLUME 80.9 fL (80.0-94.0); MEAN CORPUSCULAR HEMOGLOBIN 27.3 pg (27.0-31.0); MEAN CORPUSCULAR HGB CONC 33.7 g/dL (33.0-37.0); MEAN PLATELET VOLUME 8.6 fL (7.2-11.7); MONO # 1.7 K/uL (0.0-0.8); MONO % 12.2 % (0.0-10.0); NEUT # 10.8 K/uL (1.8-7.0); PLATELET COUNT 202 K/uL (130-400); RBC 5.03 Mil/uL (4.40-5.90); RED CELL DISTRIBUTION WIDTH 16.8 % (11.5-14.5); WHITE BLOOD COUNT 13.9 K/uL (4.8-10.8)
[2018-04-08 06:42] LABS: ALBUMIN 3.4 g/dL (3.5-5.0); ALT/SGPT 15 U/L (21-72); AST/SGOT 42 U/L (17-59); BLOOD UREA NITROGEN 20 mg/dL (9-20); CALCIUM 8.7 mg/dl (8.6-10.4); GFR AFRICAN-AMERICAN > 60; GFR NON-AFRICAN AMERICAN 51
[2018-04-08] MEDS ORDERED: Heparin25000 units/250ml 1/2NS 25,000 UNITS/250 ML BAG IV PRN (07:45)
[2018-04-08] MEDS: (Novolin R) Insulin Human Regular 100 units/ml vial SC SCH ×2 (08:03→11:24)
[2018-04-08 08:05] LABS: ANISOCYTOSIS SLIGHT; BASOPHIL 1 % (0-2); LYMPHOCYTE 9 % (20-40); MONOCYTE 12 % (0-10); NEUTROPHIL 78 % (50-75); PLATELET ESTIMATE NORMAL (NORMAL); TOTAL CELLS COUNTED 100
[2018-04-08] MEDS: Potassium & Sodium Phosphate PO SCH ×2 (08:36→10:22)
[2018-04-08] MEDS: Pantoprazole 40 mg EC Tab PO SCH (09:00)
[2018-04-08] MEDS ORDERED: Acetylcysteine 20% Inhal Soln (4ml) INH SCH (10:00)
--- NOTE | 2018-04-08 10:34 | CP.CCUPN ---
<Jenny Medellin - Last Filed: 04/08/18 10:31> CCU Subjective - Physician Review Subjective (Free Text): Patient seen and examined at bedside. Denied chest pain, nausea, vomiting, or shortness of breath. Patient is waiting for cardiac cath - [place] [facility] [place]. CCU Objective - Vital Signs / Intake & Output Vital Signs (Last 4 hours): Vital Signs Pulse Resp BP Pulse Ox 04/08/18 10:00 94 H 25 H 91 L 04/08/18 09:53 132/80 04/08/18 09:01 147/90 04/08/18 09:00 103 H 32 H 95 04/08/18 08:53 147/90 04/08/18 08:00 108 H 21 92 L 04/08/18 07:53 142/72 04/08/18 07:00 105 H 28 H 91 L 04/08/18 06:53 99 H 19 139/74 91 L Intake and Output (Last 8hrs): Intake & Output 04/07/18 04/08/18 04/08/18 22:59 06:59 14:59 Intake Total 701.8 636.8 218.6 Output Total 1450 1000 350 Balance -748.2 -363.2 -131.4 Weight 209 lb Intake: IV 250 200 Intake, IV Amount 451.8 436.8 218.6 Left Antecubital 68.8 68.8 49.6 Left Antecubital Y Port 320 320 160 Right Antecubital 63 48 9 Output: Urine 1450 1000 350 Urine, Voided 1450 1000 350 - Physical Exam Head: Positive for: Atraumatic, Normocephalic Pupils: Positive for: PERRL Extroacular Muscles: Positive for: EOMI Conjunctiva: Positive for: Normal Mouth: Positive for: Dry Pharnyx: Positive for: Normal Neck: Positive for: Normal Range of Motion Respiratory/Chest: Positive for: Clear to Auscultation. Negative for: Wheezes Cardiovascular: Positive for: Regular Rate and Rhythm, Normal S1, S2. Negative for: Murmurs Abdomen: Positive for: Normal Bowel Sounds. Negative for: Tenderness, Distention Upper Extremity: Positive for: Normal Inspection, NORMAL PULSES, Neurovascularly Intact, Capillary Refill < 2s. Negative for: Cyanosis, Edema Lower Extremity: Positive for: Normal Inspection, NORMAL PULSES, Neurovascularly Intact, Capillary Refill < 2 s. Negative for: Edema, CALF TENDERNESS, Tenderness, Swelling Neurological: Positive for: GCS=15, CN II-XII Intact Skin: Positive for: Warm, Dry, Normal Color Psychiatric: Positive for: Alert, Oriented x 3, Normal Insight - Medications Active Medications: Active Medications Generic Name Dose Route Start Last Admin Trade Name Freq PRN Reason Stop Dose Admin Acetylcysteine 4 ml 04/08/18 10:00 Acetylcysteine 20% INH 04/09/18 10:01 Q12H ALY Aspirin 81 mg 04/07/18 10:00 04/08/18 09:01 Ecotrin PO 81 mg DAILY ALY Administration Nitroglycerin/Dextrose 50 mg in 250 mls @ 7.5 mls/hr 04/06/18 22:00 04/08/18 06:22 Nitroglycerin 50 Mg/250 Ml D5w IV 20 mcg/min .Q24H ALY 6 mls/hr Protocol Administration 25 MCG/MIN Sodium Chloride 1,000 mls @ 100 mls/hr 04/07/18 14:11 04/08/18 01:40 Sodium Chloride 0.45% IV 100 mls/hr .Q10H AYL Administration Heparin Sodium/Sodium Chloride 25,000 units in 250 mls @ 13.336 mls/hr 07:45 04/08/18 09:05 Heparin 85102 Units/250ml 1/2 Normal Saline IV 15 units/kg/hr .[id number] PRN 14.288 mls/hr ADJUST RATE PER PROTOCOL Administration Protocol 14 UNITS/KG/HR Insulin Human Regular 0 unit 04/07/18 11:30 04/08/18 08:03 Novolin R SC Not Given ACHS [facility] Protocol Lisinopril 10 mg 04/09/18 10:00 Zestril PO DAILY ALY Metoprolol Tartrate 25 mg 04/06/18 22:30 04/08/18 09:01 Lopressor PO 25 mg BID ALY Administration Pantoprazole Sodium 40 mg 04/07/18 10:00 04/08/18 09:00 Protonix Ec Tab PO 40 mg DAILY ALY Administration Rosuvastatin Calcium 10 mg 04/07/18 22:00 04/07/18 21:31 Crestor PO 10 mg HS ALY Administration Ticagrelor 90 mg 04/07/18 10:00 04/08/18 09:01 Brilinta PO 90 mg BID ALY Administration - Patient Studies Lab Studies: Microbiology Studies 04/07/18 10:24 Urine Culture - Final Urine No Growth (<1,000 CFU/ML) Lab Studies 04/08/18 04/08/18 04/08/18 Range/Units 07:18 06:17 06:17 WBC (4.8-10.8) K/uL RBC (4.40-5.90) Mil/uL Hgb (12.0-18.0) g/dL Hct (35.0-51.0) % MCV (80.0-94.0) fL MCH (27.0-31.0) pg MCHC (33.0-37.0) g/dL RDW (11.5-14.5) % Plt Count (130-400) K/uL MPV (7.2-11.7) fL Neut % (Auto) (50.0-75.0) % Lymph % (Auto) (20.0-40.0) % [place] % (Auto) (0.0-10.0) % Eos % (Auto) (0.0-4.0) % Baso % (Auto) (0.0-2.0) % Neut # (Auto) (1.8-7.0) K/uL Lymph # (Auto) (1.0-4.3) K/uL [place] # (Auto) (0.0-0.8) K/uL Eos # (Auto) (0.0-0.7) K/uL Baso # (Auto) (0.0-0.2) K/uL Neutrophils % (Manual) (50-75) % Lymphocytes % (Manual) (20-40) % Monocytes % (Manual) (0-10) % Basophils % (Manual) (0-2) % Platelet Estimate (NORMAL) Anisocytosis (manual) APTT 39 H D (21-34) SECONDS Sodium 136 (132-148) mmol/L Potassium 3.7 (3.6-5.2) mmol/L Chloride 101 (98-107) mmol/L Carbon Dioxide 24 (22-30) mmol/L Anion Gap 14 (10-20) BUN 20 (9-20) mg/dL Creatinine 1.4 (0.8-1.5) mg/dL Est GFR ( Amer) > 60 Est GFR (Non-Af Amer) 51 POC Glucose (mg/dL) 117 H (65-110) mg/dL Random Glucose 113 H (75-110) mg/dL Calcium 8.7 (8.6-10.4) mg/dl Phosphorus 1.8 L (2.5-4.5) mg/dL Magnesium 2.4 H (1.6-2.3) mg/dL Total Bilirubin 0.4 (0.2-1.3) mg/dL AST 42 (17-59) U/L ALT 15 L D (21-72) U/L Alkaline Phosphatase 81 (38-126) U/L Total Protein 6.7 (6.3-8.3) g/dL Albumin 3.4 L (3.5-5.0) g/dL Globulin 3.3 (2.2-3.9) gm/dL Albumin/Globulin Ratio 1.0 (1.0-2.1) Urine Color (YELLOW) Urine Clarity (Clear) Urine pH (5.0-8.0) Ur Specific [place] (1.003-1.030) Urine Protein (NEGATIVE) mg/dL Urine Glucose (UA) (Normal) mg/dL Urine Ketones (NEGATIVE) mg/dL Urine Blood (NEGATIVE) Urine Nitrate (NEGATIVE) Urine Bilirubin (NEGATIVE) Urine Urobilinogen (0.2-1.0) mg/dL Ur Leukocyte Esterase (Negative) Isreal/uL Urine WBC (Auto) (0-5) /hpf Urine RBC (Auto) (0-3) /hpf Ur Squamous Epith Cells (0-5) /hpf Urine Bacteria (<OCC) 04/08/18 04/08/18 04/07/18 Range/Units 06:17 00:20 21:09 WBC 13.9 H (4.8-10.8) K/uL RBC 5.03 (4.40-5.90) Mil/uL Hgb 13.7 (12.0-18.0) g/dL Hct 40.6 (35.0-51.0) % MCV 80.9 (80.0-94.0) fL MCH 27.3 (27.0-31.0) pg MCHC 33.7 (33.0-37.0) g/dL RDW 16.8 H (11.5-14.5) % Plt Count 202 (130-400) K/uL MPV 8.6 (7.2-11.7) fL Neut % (Auto) 78.0 H (50.0-75.0) % Lymph % (Auto) 9.5 L (20.0-40.0) % [place] % (Auto) 12.2 H (0.0-10.0) % Eos % (Auto) 0.1 (0.0-4.0) % Baso % (Auto) 0.2 (0.0-2.0) % Neut # (Auto) 10.8 H (1.8-7.0) K/uL Lymph # (Auto) 1.3 (1.0-4.3) K/uL [place] # (Auto) 1.7 H (0.0-0.8) K/uL Eos # (Auto) 0.0 (0.0-0.7) K/uL Baso # (Auto) 0.0 (0.0-0.2) K/uL Neutrophils % (Manual) 78 H (50-75) % Lymphocytes % (Manual) 9 L (20-40) % Monocytes % (Manual) 12 H (0-10) % Basophils % (Manual) 1 (0-2) % Platelet Estimate Normal (NORMAL) Anisocytosis (manual) Slight APTT 48 H D (21-34) SECONDS Sodium (132-148) mmol/L Potassium (3.6-5.2) mmol/L Chloride (98-107) mmol/L Carbon Dioxide (22-30) mmol/L Anion Gap (10-20) BUN (9-20) mg/dL Creatinine (0.8-1.5) mg/dL Est GFR ( Amer) Est GFR (Non-Af Amer) POC Glucose (mg/dL) 122 H (65-110) mg/dL Random Glucose (75-110) mg/dL Calcium (8.6-10.4) mg/dl Phosphorus (2.5-4.5) mg/dL Magnesium (1.6-2.3) mg/dL Total Bilirubin (0.2-1.3) mg/dL AST (17-59) U/L ALT (21-72) U/L Alkaline Phosphatase (38-126) U/L Total Protein (6.3-8.3) g/dL Albumin (3.5-5.0) g/dL Globulin (2.2-3.9) gm/dL Albumin/Globulin Ratio (1.0-2.1) Urine Color (YELLOW) Urine Clarity (Clear) Urine pH (5.0-8.0) Ur Specific [place] (1.003-1.030) Urine Protein (NEGATIVE) mg/dL Urine Glucose (UA) (Normal) mg/dL Urine Ketones (NEGATIVE) mg/dL Urine Blood (NEGATIVE) Urine Nitrate (NEGATIVE) Urine Bilirubin (NEGATIVE) Urine Urobilinogen (0.2-1.0) mg/dL Ur Leukocyte Esterase (Negative) Isreal/uL Urine WBC (Auto) (0-5) /hpf Urine RBC (Auto) (0-3) /hpf Ur Squamous Epith Cells (0-5) /hpf Urine Bacteria (<OCC) 04/07/18 04/07/18 04/07/18 Range/Units 17:47 16:04 11:14 WBC (4.8-10.8) K/uL RBC (4.40-5.90) Mil/uL Hgb (12.0-18.0) g/dL Hct (35.0-51.0) % MCV (80.0-94.0) fL MCH (27.0-31.0) pg MCHC (33.0-37.0) g/dL RDW (11.5-14.5) % Plt Count (130-400) K/uL MPV (7.2-11.7) fL Neut % (Auto) (50.0-75.0) % Lymph % (Auto) (20.0-40.0) % [place] % (Auto) (0.0-10.0) % Eos % (Auto) (0.0-4.0) % Baso % (Auto) (0.0-2.0) % Neut # (Auto) (1.8-7.0) K/uL Lymph # (Auto) (1.0-4.3) K/uL [place] # (Auto) (0.0-0.8) K/uL Eos # (Auto) (0.0-0.7) K/uL Baso # (Auto) (0.0-0.2) K/uL Neutrophils % (Manual) (50-75) % Lymphocytes % (Manual) (20-40) % Monocytes % (Manual) (0-10) % Basophils % (Manual) (0-2) % Platelet Estimate (NORMAL) Anisocytosis (manual) APTT 29 D (21-34) SECONDS Sodium (132-148) mmol/L Potassium (3.6-5.2) mmol/L Chloride (98-107) mmol/L Carbon Dioxide (22-30) mmol/L Anion Gap (10-20) BUN (9-20) mg/dL Creatinine (0.8-1.5) mg/dL Est GFR ( Amer) Est GFR (Non-Af Amer) POC Glucose (mg/dL) 132 H 153 H (65-110) mg/dL Random Glucose (75-110) mg/dL Calcium (8.6-10.4) mg/dl Phosphorus (2.5-4.5) mg/dL Magnesium (1.6-2.3) mg/dL Total Bilirubin (0.2-1.3) mg/dL AST (17-59) U/L ALT (21-72) U/L Alkaline Phosphatase (38-126) U/L Total Protein (6.3-8.3) g/dL Albumin (3.5-5.0) g/dL Globulin (2.2-3.9) gm/dL Albumin/Globulin Ratio (1.0-2.1) Urine Color (YELLOW) Urine Clarity (Clear) Urine pH (5.0-8.0) Ur Specific [place] (1.003-1.030) Urine Protein (NEGATIVE) mg/dL Urine Glucose (UA) (Normal) mg/dL Urine Ketones (NEGATIVE) mg/dL Urine Blood (NEGATIVE) Urine Nitrate (NEGATIVE) Urine Bilirubin (NEGATIVE) Urine Urobilinogen (0.2-1.0) mg/dL Ur Leukocyte Esterase (Negative) Isreal/uL Urine WBC (Auto) (0-5) /hpf Urine RBC (Auto) (0-3) /hpf Ur Squamous Epith Cells (0-5) /hpf Urine Bacteria (<OCC) 04/07/18 Range/Units 10:24 WBC (4.8-10.8) K/uL RBC (4.40-5.90) Mil/uL Hgb (12.0-18.0) g/dL Hct (35.0-51.0) % MCV (80.0-94.0) fL MCH (27.0-31.0) pg MCHC (33.0-37.0) g/dL RDW (11.5-14.5) % Plt Count (130-400) K/uL MPV (7.2-11.7) fL Neut % (Auto) (50.0-75.0) % Lymph % (Auto) (20.0-40.0) % [place] % (Auto) (0.0-10.0) % Eos % (Auto) (0.0-4.0) % Baso % (Auto) (0.0-2.0) % Neut # (Auto) (1.8-7.0) K/uL Lymph # (Auto) (1.0-4.3) K/uL [place] # (Auto) (0.0-0.8) K/uL Eos # (Auto) (0.0-0.7) K/uL Baso # (Auto) (0.0-0.2) K/uL Neutrophils % (Manual) (50-75) % Lymphocytes % (Manual) (20-40) % Monocytes % (Manual) (0-10) % Basophils % (Manual) (0-2) % Platelet Estimate (NORMAL) Anisocytosis (manual) APTT (21-34) SECONDS Sodium (132-148) mmol/L Potassium (3.6-5.2) mmol/L Chloride (98-107) mmol/L Carbon Dioxide (22-30) mmol/L Anion Gap (10-20) BUN (9-20) mg/dL Creatinine (0.8-1.5) mg/dL Est GFR ( Amer) Est GFR (Non-Af Amer) POC Glucose (mg/dL) (65-110) mg/dL Random Glucose (75-110) mg/dL Calcium (8.6-10.4) mg/dl Phosphorus (2.5-4.5) mg/dL Magnesium (1.6-2.3) mg/dL Total Bilirubin (0.2-1.3) mg/dL AST (17-59) U/L ALT (21-72) U/L Alkaline Phosphatase (38-126) U/L Total Protein (6.3-8.3) g/dL Albumin (3.5-5.0) g/dL Globulin (2.2-3.9) gm/dL Albumin/Globulin Ratio (1.0-2.1) Urine Color Yellow (YELLOW) Urine Clarity Clear (Clear) Urine pH 5.0 (5.0-8.0) Ur Specific [place] 1.015 (1.003-1.030) Urine Protein Negative (NEGATIVE) mg/dL Urine Glucose (UA) Normal (Normal) mg/dL Urine Ketones Negative (NEGATIVE) mg/dL Urine Blood 1+ H (NEGATIVE) Urine Nitrate Negative (NEGATIVE) Urine Bilirubin Negative (NEGATIVE) Urine Urobilinogen Normal (0.2-1.0) mg/dL Ur Leukocyte Esterase Trace (Negative) Isreal/uL Urine WBC (Auto) 19 H (0-5) /hpf Urine RBC (Auto) 3 (0-3) /hpf Ur Squamous Epith Cells 5 (0-5) /hpf Urine Bacteria Rare (<OCC) Laboratory Results - last 24 hr 04/07/18 04/07/18 04/07/18 10:24 11:14 16:04 WBC RBC Hgb Hct MCV MCH MCHC RDW Plt Count MPV Neut % (Auto) Lymph % (Auto) [place] % (Auto) Eos % (Auto) Baso % (Auto) Neut # (Auto) Lymph # (Auto) [place] # (Auto) Eos # (Auto) Baso # (Auto) Neutrophils % (Manual) Lymphocytes % (Manual) Monocytes % (Manual) Basophils % (Manual) Platelet Estimate Anisocytosis (manual) APTT Sodium Potassium Chloride Carbon Dioxide Anion Gap BUN Creatinine Est GFR ( Amer) Est GFR (Non-Af Amer) POC Glucose (mg/dL) 153 H 132 H Random Glucose Calcium Phosphorus Magnesium Total Bilirubin AST ALT Alkaline Phosphatase Total Protein Albumin Globulin Albumin/Globulin Ratio Urine Color Yellow Urine Clarity Clear Urine pH 5.0 Ur Specific [place] 1.015 Urine Protein Negative Urine Glucose (UA) Normal Urine Ketones Negative Urine Blood 1+ H Urine Nitrate Negative Urine Bilirubin Negative Urine Urobilinogen Normal Ur Leukocyte Esterase Trace Urine WBC (Auto) 19 H Urine RBC (Auto) 3 Ur Squamous Epith Cells 5 Urine Bacteria Rare 04/07/18 04/07/1818 17:47 21:09 00:20 WBC RBC Hgb Hct MCV MCH MCHC RDW Plt Count MPV Neut % (Auto) Lymph % (Auto) [place] % (Auto) Eos % (Auto) Baso % (Auto) Neut # (Auto) Lymph # (Auto) [place] # (Auto) Eos # (Auto) Baso # (Auto) Neutrophils % (Manual) Lymphocytes % (Manual) Monocytes % (Manual) Basophils % (Manual) Platelet Estimate Anisocytosis (manual) APTT 29 D 48 H D Sodium Potassium Chloride Carbon Dioxide Anion Gap BUN Creatinine Est GFR ( Amer) Est GFR (Non-Af Amer) POC Glucose (mg/dL) 122 H Random Glucose Calcium Phosphorus Magnesium Total Bilirubin AST ALT Alkaline Phosphatase Total Protein Albumin Globulin Albumin/Globulin Ratio Urine Color Urine Clarity Urine pH Ur Specific [place] Urine Protein Urine Glucose (UA) Urine Ketones Urine Blood Urine Nitrate Urine Bilirubin Urine Urobilinogen Ur Leukocyte Esterase Urine WBC (Auto) Urine RBC (Auto) Ur Squamous Epith Cells Urine Bacteria 04/08/18 04/08/18 04/08/18 06:17 06:17 06:17 WBC 13.9 H RBC 5.03 Hgb 13.7 Hct 40.6 MCV 80.9 MCH 27.3 MCHC 33.7 RDW 16.8 H Plt Count 202 MPV 8.6 Neut % (Auto) 78.0 H Lymph % (Auto) 9.5 L [place] % (Auto) 12.2 H Eos % (Auto) 0.1 Baso % (Auto) 0.2 Neut # (Auto) 10.8 H Lymph # (Auto) 1.3 [place] # (Auto) 1.7 H Eos # (Auto) 0.0 Baso # (Auto) 0.0 Neutrophils % (Manual) 78 H Lymphocytes % (Manual) 9 L Monocytes % (Manual) 12 H Basophils % (Manual) 1 Platelet Estimate Normal Anisocytosis (manual) Slight APTT 39 H D Sodium 136 Potassium 3.7 Chloride 101 Carbon Dioxide 24 Anion Gap 14 BUN 20 Creatinine 1.4 Est GFR ( Amer) > 60 Est GFR (Non-Af Amer) 51 POC Glucose (mg/dL) Random Glucose 113 H Calcium 8.7 Phosphorus 1.8 L Magnesium 2.4 H Total Bilirubin 0.4 AST 42 ALT 15 L D Alkaline Phosphatase 81 Total Protein 6.7 Albumin 3.4 L Globulin 3.3 Albumin/Globulin Ratio 1.0 Urine Color Urine Clarity Urine pH Ur Specific [place] Urine Protein Urine Glucose (UA) Urine Ketones Urine Blood Urine Nitrate Urine Bilirubin Urine Urobilinogen Ur Leukocyte Esterase Urine WBC (Auto) Urine RBC (Auto) Ur Squamous Epith Cells Urine Bacteria 04/08/18 07:18 WBC RBC Hgb Hct MCV MCH MCHC RDW Plt Count MPV Neut % (Auto) Lymph % (Auto) [place] % (Auto) Eos % (Auto) Baso % (Auto) Neut # (Auto) Lymph # (Auto) [place] # (Auto) Eos # (Auto) Baso # (Auto) Neutrophils % (Manual) Lymphocytes % (Manual) Monocytes % (Manual) Basophils % (Manual) Platelet Estimate Anisocytosis (manual) APTT Sodium Potassium Chloride Carbon Dioxide Anion Gap BUN Creatinine Est GFR ( Amer) Est GFR (Non-Af Amer) POC Glucose (mg/dL) 117 H Random Glucose Calcium Phosphorus Magnesium Total Bilirubin AST ALT Alkaline Phosphatase Total Protein Albumin Globulin Albumin/Globulin Ratio Urine Color Urine Clarity Urine pH Ur Specific [place] Urine Protein Urine Glucose (UA) Urine Ketones Urine Blood Urine Nitrate Urine Bilirubin Urine Urobilinogen Ur Leukocyte Esterase Urine WBC (Auto) Urine RBC (Auto) Ur Squamous Epith Cells Urine Bacteria Fingerstick Blood Sugar Results: 117 Critical Care Progress Note - Nutrition Nutrition: Nutrition Category Date Time Status Heart Healthy Diet [DIET] Diets 04/08/18 Dinner Active NPO Diet [DIET] Diets 04/08/18 Breakfast Active Assessment/Plan - Assessment and Plan (Free Text) Assessment: This is a 67 year old male with PMHx of HTN, HLD, New onset DM with A1C 6.5 who presents with chest pain radiating to the shoulder that started 1 day prior to admission. EKG with sinus rhythm, ectopy, T wave abnormalities. Troponin 14.1 -- > 12 --> 7.8. Patient is for cardiac cath today with Dr. Lam [facility] [place] Plan: Neuro: AAO x3 Not on sedation Cardio: A: Chest Pain, ACS Cardiology - Dr. Latham, Dr. Lam - EKG: Sinus rhythm, ectopy, T wave abnormalities - Troponin 14.1 --> 12 --> 7.8 - Possible cath TBD - Replete electrolytes - F/U ECHO - Cardiac cath today with Dr. Lam [place] [facility] [place] A: Hx HLD - Lipid panel - WNL - Crestor 10mg Management: - ASA, Brilinta, Lopressor 25mg PO BID, lisinopril 10 will be resumed tomorrow s /p cath, Crestor 10mg Endo: A: T2DM - Accuchecks - ISS- Low - Will instruct diet, exercise, and weight loss - Started BB, ACEi, Crestor - A1C 6.5 Pulm: - No acute distress GI: - Protonix ID: - Afebrile, leukocytosis, left shift, no bandemia - UA + , UC- no growth Prophylaxis - Protonix - On heparin drip, SCDs Disposition: Pending results from cardiac cath. DW Dr. Alison Omer, Jenny Medellin DO, PGY-1 <Rosalina Omer - Last Filed: 04/08/18 11:53> CCU Objective - Vital Signs / Intake & Output Vital Signs (Last 4 hours): Vital Signs Pulse Resp BP Pulse Ox 04/08/18 11:00 94 H 23 94 L 04/08/18 10:53 144/100 H 04/08/18 10:00 94 H 25 H 91 L 04/08/18 09:53 132/80 04/08/18 09:01 147/90 04/08/18 09:00 103 H 32 H 95 04/08/18 08:53 147/90 04/08/18 08:00 108 H 21 92 L 04/08/18 07:53 142/72 Intake and Output (Last 8hrs): Intake & Output 04/07/18 04/08/18 04/08/18 22:59 06:59 14:59 Intake Total 701.8 636.8 278.9 Output Total 1450 1000 350 Balance -748.2 -363.2 -71.1 Weight 209 lb Intake: IV 250 200 6 Intake, IV Amount 451.8 436.8 272.9 Left Antecubital 68.8 68.8 63.9 Left Antecubital Y Port 320 320 200 Right Antecubital 63 48 9 Output: Urine 1450 1000 350 Urine, Voided 1450 1000 350 - Medications Active Medications: Active Medications Generic Name Dose Route Start Last Admin Trade Name Freq PRN Reason Stop Dose Admin Acetylcysteine 3 ml 04/08/18 11:45 04/08/18 11:37 Acetylcysteine 20% PO 04/09/18 22:01 3 ml Q12 ALY Administration Aspirin 81 mg 04/07/18 10:00 04/08/18 09:01 Ecotrin PO 81 mg DAILY ALY Administration Nitroglycerin/Dextrose 50 mg in 250 mls @ 7.5 mls/hr 04/06/18 22:00 04/08/18 09:00 Nitroglycerin 50 Mg/250 Ml D5w IV 0 mcg/min .Q24H ALY 0 mls/hr Protocol Titration 25 MCG/MIN Sodium Chloride 1,000 mls @ 100 mls/hr 04/07/18 14:11 04/08/18 01:40 Sodium Chloride 0.45% IV 100 mls/hr .Q10H ALY Administration Heparin Sodium/Sodium Chloride 25,000 units in 250 mls @ 13.336 mls/hr 07:45 04/08/18 09:05 Heparin 09109 Units/250ml 1/2 Normal Saline IV 15 units/kg/hr .[id number] PRN 14.288 mls/hr ADJUST RATE PER PROTOCOL Administration Protocol 14 UNITS/KG/HR Insulin Human Regular 0 unit 04/07/18 11:30 04/08/18 11:24 Novolin R SC Not Given ACHS [facility] Protocol Lisinopril 10 mg 04/09/18 10:00 Zestril PO DAILY ALY Metoprolol Tartrate 25 mg 04/06/18 22:30 04/08/18 09:01 Lopressor PO 25 mg BID ALY Administration Pantoprazole Sodium 40 mg 04/07/18 10:00 04/08/18 09:00 Protonix Ec Tab PO 40 mg DAILY ALY Administration Rosuvastatin Calcium 10 mg 04/07/18 22:00 04/07/18 21:31 Crestor PO 10 mg HS ALY Administration Ticagrelor 90 mg 04/07/18 10:00 04/08/18 09:01 Brilinta PO 90 mg BID ALY Administration - Patient Studies Lab Studies: Microbiology Studies 04/07/18 10:24 Urine Culture - Final Urine No Growth (<1,000 CFU/ML) Lab Studies 04/08/18 04/08/18 04/08/18 Range/Units 11:12 07:18 06:17 WBC (4.8-10.8) K/uL RBC (4.40-5.90) Mil/uL Hgb (12.0-18.0) g/dL Hct (35.0-51.0) % MCV (80.0-94.0) fL MCH (27.0-31.0) pg MCHC (33.0-37.0) g/dL RDW (11.5-14.5) % Plt Count (130-400) K/uL MPV (7.2-11.7) fL Neut % (Auto) (50.0-75.0) % Lymph % (Auto) (20.0-40.0) % [place] % (Auto) (0.0-10.0) % Eos % (Auto) (0.0-4.0) % Baso % (Auto) (0.0-2.0) % Neut # (Auto) (1.8-7.0) K/uL Lymph # (Auto) (1.0-4.3) K/uL [place] # (Auto) (0.0-0.8) K/uL Eos # (Auto) (0.0-0.7) K/uL Baso # (Auto) (0.0-0.2) K/uL Neutrophils % (Manual) (50-75) % Lymphocytes % (Manual) (20-40) % Monocytes % (Manual) (0-10) % Basophils % (Manual) (0-2) % Platelet Estimate (NORMAL) Anisocytosis (manual) APTT 39 H D (21-34) SECONDS Sodium (132-148) mmol/L Potassium (3.6-5.2) mmol/L Chloride (98-107) mmol/L Carbon Dioxide (22-30) mmol/L Anion Gap (10-20) BUN (9-20) mg/dL Creatinine (0.8-1.5) mg/dL Est GFR ( Amer) Est GFR (Non-Af Amer) POC Glucose (mg/dL) 135 H 117 H (65-110) mg/dL Random Glucose (75-110) mg/dL Calcium (8.6-10.4) mg/dl Phosphorus (2.5-4.5) mg/dL Magnesium (1.6-2.3) mg/dL Total Bilirubin (0.2-1.3) mg/dL AST (17-59) U/L ALT (21-72) U/L Alkaline Phosphatase (38-126) U/L Total Protein (6.3-8.3) g/dL Albumin (3.5-5.0) g/dL Globulin (2.2-3.9) gm/dL Albumin/Globulin Ratio (1.0-2.1) 04/08/18 04/08/18 04/08/18 Range/Units 06:17 06:17 00:20 WBC 13.9 H (4.8-10.8) K/uL RBC 5.03 (4.40-5.90) Mil/uL Hgb 13.7 (12.0-18.0) g/dL Hct 40.6 (35.0-51.0) % MCV 80.9 (80.0-94.0) fL MCH 27.3 (27.0-31.0) pg MCHC 33.7 (33.0-37.0) g/dL RDW 16.8 H (11.5-14.5) % Plt Count 202 (130-400) K/uL MPV 8.6 (7.2-11.7) fL Neut % (Auto) 78.0 H (50.0-75.0) % Lymph % (Auto) 9.5 L (20.0-40.0) % [place] % (Auto) 12.2 H (0.0-10.0) % Eos % (Auto) 0.1 (0.0-4.0) % Baso % (Auto) 0.2 (0.0-2.0) % Neut # (Auto) 10.8 H (1.8-7.0) K/uL Lymph # (Auto) 1.3 (1.0-4.3) K/uL [place] # (Auto) 1.7 H (0.0-0.8) K/uL Eos # (Auto) 0.0 (0.0-0.7) K/uL Baso # (Auto) 0.0 (0.0-0.2) K/uL Neutrophils % (Manual) 78 H (50-75) % Lymphocytes % (Manual) 9 L (20-40) % Monocytes % (Manual) 12 H (0-10) % Basophils % (Manual) 1 (0-2) % Platelet Estimate Normal (NORMAL) Anisocytosis (manual) Slight APTT 48 H D (21-34) SECONDS Sodium 136 (132-148) mmol/L Potassium 3.7 (3.6-5.2) mmol/L Chloride 101 (98-107) mmol/L Carbon Dioxide 24 (22-30) mmol/L Anion Gap 14 (10-20) BUN 20 (9-20) mg/dL Creatinine 1.4 (0.8-1.5) mg/dL Est GFR ( Amer) > 60 Est GFR (Non-Af Amer) 51 POC Glucose (mg/dL) (65-110) mg/dL Random Glucose 113 H (75-110) mg/dL Calcium 8.7 (8.6-10.4) mg/dl Phosphorus 1.8 L (2.5-4.5) mg/dL Magnesium 2.4 H (1.6-2.3) mg/dL Total Bilirubin 0.4 (0.2-1.3) mg/dL AST 42 (17-59) U/L ALT 15 L D (21-72) U/L Alkaline Phosphatase 81 (38-126) U/L Total Protein 6.7 (6.3-8.3) g/dL Albumin 3.4 L (3.5-5.0) g/dL Globulin 3.3 (2.2-3.9) gm/dL Albumin/Globulin Ratio 1.0 (1.0-2.1) 04/07/18 04/07/18 04/07/18 Range/Units 21:09 17:47 16:04 WBC (4.8-10.8) K/uL RBC (4.40-5.90) Mil/uL Hgb (12.0-18.0) g/dL Hct (35.0-51.0) % MCV (80.0-94.0) fL MCH (27.0-31.0) pg MCHC (33.0-37.0) g/dL RDW (11.5-14.5) % Plt Count (130-400) K/uL MPV (7.2-11.7) fL Neut % (Auto) (50.0-75.0) % Lymph % (Auto) (20.0-40.0) % [place] % (Auto) (0.0-10.0) % Eos % (Auto) (0.0-4.0) % Baso % (Auto) (0.0-2.0) % Neut # (Auto) (1.8-7.0) K/uL Lymph # (Auto) (1.0-4.3) K/uL [place] # (Auto) (0.0-0.8) K/uL Eos # (Auto) (0.0-0.7) K/uL Baso # (Auto) (0.0-0.2) K/uL Neutrophils % (Manual) (50-75) % Lymphocytes % (Manual) (20-40) % Monocytes % (Manual) (0-10) % Basophils % (Manual) (0-2) % Platelet Estimate (NORMAL) Anisocytosis (manual) APTT 29 D (21-34) SECONDS Sodium (132-148) mmol/L Potassium (3.6-5.2) mmol/L Chloride (98-107) mmol/L Carbon Dioxide (22-30) mmol/L Anion Gap (10-20) BUN (9-20) mg/dL Creatinine (0.8-1.5) mg/dL Est GFR ( Amer) Est GFR (Non-Af Amer) POC Glucose (mg/dL) 122 H 132 H (65-110) mg/dL Random Glucose (75-110) mg/dL Calcium (8.6-10.4) mg/dl Phosphorus (2.5-4.5) mg/dL Magnesium (1.6-2.3) mg/dL Total Bilirubin (0.2-1.3) mg/dL AST (17-59) U/L ALT (21-72) U/L Alkaline Phosphatase (38-126) U/L Total Protein (6.3-8.3) g/dL Albumin (3.5-5.0) g/dL Globulin (2.2-3.9) gm/dL Albumin/Globulin Ratio (1.0-2.1) Laboratory Results - last 24 hr 04/07/18 04/07/18 04/07/18 16:04 17:47 21:09 WBC RBC Hgb Hct MCV MCH MCHC RDW Plt Count MPV Neut % (Auto) Lymph % (Auto) [place] % (Auto) Eos % (Auto) Baso % (Auto) Neut # (Auto) Lymph # (Auto) [place] # (Auto) Eos # (Auto) Baso # (Auto) Neutrophils % (Manual) Lymphocytes % (Manual) Monocytes % (Manual) Basophils % (Manual) Platelet Estimate Anisocytosis (manual) APTT 29 D Sodium Potassium Chloride Carbon Dioxide Anion Gap BUN Creatinine Est GFR ( Amer) Est GFR (Non-Af Amer) POC Glucose (mg/dL) 132 H 122 H Random Glucose Calcium Phosphorus Magnesium Total Bilirubin AST ALT Alkaline Phosphatase Total Protein Albumin Globulin Albumin/Globulin Ratio 04/08/18 04/08/18 04/08/18 00:20 06:17 06:17 WBC 13.9 H RBC 5.03 Hgb 13.7 Hct 40.6 MCV 80.9 MCH 27.3 MCHC 33.7 RDW 16.8 H Plt Count 202 MPV 8.6 Neut % (Auto) 78.0 H Lymph % (Auto) 9.5 L [place] % (Auto) 12.2 H Eos % (Auto) 0.1 Baso % (Auto) 0.2 Neut # (Auto) 10.8 H Lymph # (Auto) 1.3 [place] # (Auto) 1.7 H Eos # (Auto) 0.0 Baso # (Auto) 0.0 Neutrophils % (Manual) 78 H Lymphocytes % (Manual) 9 L Monocytes % (Manual) 12 H Basophils % (Manual) 1 Platelet Estimate Normal Anisocytosis (manual) Slight APTT 48 H D Sodium 136 Potassium 3.7 Chloride 101 Carbon Dioxide 24 Anion Gap 14 BUN 20 Creatinine 1.4 Est GFR ( Amer) > 60 Est GFR (Non-Af Amer) 51 POC Glucose (mg/dL) Random Glucose 113 H Calcium 8.7 Phosphorus 1.8 L Magnesium 2.4 H Total Bilirubin 0.4 AST 42 ALT 15 L D Alkaline Phosphatase 81 Total Protein 6.7 Albumin 3.4 L Globulin 3.3 Albumin/Globulin Ratio 1.0 04/08/18 04/08/18 04/08/18 06:17 07:18 11:12 WBC RBC Hgb Hct MCV MCH MCHC RDW Plt Count MPV Neut % (Auto) Lymph % (Auto) [place] % (Auto) Eos % (Auto) Baso % (Auto) Neut # (Auto) Lymph # (Auto) [place] # (Auto) Eos # (Auto) Baso # (Auto) Neutrophils % (Manual) Lymphocytes % (Manual) Monocytes % (Manual) Basophils % (Manual) Platelet Estimate Anisocytosis (manual) APTT 39 H D Sodium Potassium Chloride Carbon Dioxide Anion Gap BUN Creatinine Est GFR ( Amer) Est GFR (Non-Af Amer) POC Glucose (mg/dL) 117 H 135 H Random Glucose Calcium Phosphorus Magnesium Total Bilirubin AST ALT Alkaline Phosphatase Total Protein Albumin Globulin Albumin/Globulin Ratio Critical Care Progress Note - Nutrition Nutrition: Nutrition Category Date Time Status Heart Healthy Diet [DIET] Diets 04/08/18 Dinner Active NPO Diet [DIET] Diets 04/08/18 Breakfast Active Assessment/Plan - Assessment and Plan (Free Text) Plan: Above resident note reviewed and verified. Patient with stable NSTEMI awaiting a cath. -continue rx as per cardiology - - Date & Time Date: 04/08/18 Time: 08:55
[2018-04-08] MEDS ORDERED: ACETYLCYSTEINE 20% PO SCH (11:30)
[2018-04-08] MEDS ORDERED: Acetylcysteine 20% Inhal Soln (4ml) PO SCH (11:45)
[2018-04-08 12:36] VITALS: BP 149/95
[2018-04-08 13:06] VITALS: PULSE 105; RESP 13; O2SAT 92
--- NOTE | 2018-04-08 19:50 | CARD ---
APPROVED REPORT EKG Measurement Heart [id number] FL 86P [id number] <Conclusion> Sinus rhythm with short FL Right bundle branch block Left anterior fascicular block Bifascicular block Left ventricular hypertrophy with repolarization abnormality Abnormal ECG
--- NOTE | 2018-04-09 04:12 | CARD ---
APPROVED REPORT EXAM: Two-dimensional and M-mode echocardiogram with Doppler and color Doppler. Other Information Quality : GoodRhythm : INDICATION Dyspnea Chest Pain 2D DIMENSIONS IVSd1.2 (0.7-1.1cm)LVDd5.6 (3.9-5.9cm) PWd1.2 (0.7-1.1cm)LVDs4.3 (2.5-4.0cm) FS (%) 24.3 %LVEF (%)45.0 (>50%) M-Mode DIMENSIONS Left Atrium (MM)4.62 (2.5-4.0cm)IVSd1.22 (0.7-1.1cm) Aortic Root3.71 (2.2-3.7cm)LVDd6.57 (4.0-5.6cm) Aortic Cusp Exc.2.23 (1.5-2.0cm)PWd1.05 (0.7-1.1cm) FS (%) 30 %LVDs4.63 (2.0-3.8cm) LVEF (%)55 (>50%) Mitral Valve MV E Eariklmu76.9cm/sMV A Pjdcyumy90.6cm/sE/A ratio1.3 TDI E/Lateral E'0.0E/Medial E'0.0 Tricuspid Valve TR Peak Gbkhkojj075tk/sTR Peak [id number] LEFT VENTRICLE The left ventricle is normal size. There is mild concentric left ventricular hypertrophy. Left ventricle systolic function is normal. The Ejection Fraction is >55%. There is normal LV segmental wall motion. The left ventricular diastolic function is normal. RIGHT VENTRICLE The right ventricle is normal size. There is normal right ventricular wall thickness. The right ventricular systolic function is normal. ATRIA The left atrium is mildly dilated. The right atrium size is normal. The interatrial septum is intact with no evidence for an atrial septal defect. AORTIC VALVE The aortic valve is normal in structure. No aortic regurgitation is present. There is no aortic valvular stenosis. There is no aortic valvular vegetation. MITRAL VALVE The mitral valve is normal in structure. There is no evidence of mitral valve prolapse. There is no mitral valve stenosis. Mitral regurgitation is mild. TRICUSPID VALVE The tricuspid valve is normal in structure. There is trace to mild tricuspid regurgitation. Right ventricular systolic pressure is estimated at less than 30 mmHg. There is no pulmonary hypertension. PULMONIC VALVE The pulmonic valve is not well visualized. There is mild pulmonic valvular regurgitation. GREAT VESSELS The aortic root is normal in size. PERICARDIAL EFFUSION There is no significant pericardial effusion. <Conclusion> Left ventricle systolic function is normal. The Ejection Fraction is >55%. Hypertensive heart disease. No aortic regurgitation is present. Mitral regurgitation is mild. There is trace to mild tricuspid regurgitation. There is no pulmonary hypertension. There is mild pulmonic valvular regurgitation.
--- NOTE | 2018-04-09 05:32 | CARD ---
APPROVED REPORT EKG Measurement Heart [id number] [place] 138P [id number] <Conclusion> Sinus tachycardia with premature atrial complexes Right bundle branch block Left anterior fascicular block Bifascicular block Left ventricular hypertrophy with repolarization abnormality Abnormal ECG
--- NOTE | 2018-04-09 10:30 | DS ---
TRANSFER SUMMARY Admission date 04/06/2018. Transferred to [facility] on 04/08/2018. HISTORY OF PRESENT ILLNESS: A 67-year-old gentleman who was brought in with a history of chest pain. The patient has a non-ST elevation AK. Troponins were elevated. EKG showed right bundle and left anterior hemiblock and sinus rhythm. The patient was placed on nitrates, beta blockers, heparin, and did well. The patient needs coronary angiogram. The patient had a consultation with Dr. Lam, being transferred to [facility] for catheterization and very likely intervention. The patient also has a creatinine of 1.7. FINAL DIAGNOSES: Non-ST elevation myocardial infarction, hypertension, mild chronic kidney disease. Mohan Latham MD
== END 2018-04-08 19:47 | disposition short-term general hospital (02) | DRG 281 ==
LOC: C.ER 17:01 → C.9E 19:30 → C.9I 20:00
PROVIDERS: ADMIT Internal Medicine Cardiovascular Disease; ATTEND Internal Medicine Cardiovascular Disease
DX: I21.4 Non-ST elevation (NSTEMI) myocardial infarction (principal); I45.2 Bifascicular block; N18.2 Chronic kidney disease, stage 2 (mild); D72.829 Elevated white blood cell count, unspecified; I12.9 Hypertensive chronic kidney disease with stage 1 through stage 4 chronic kidney disease, or unspecified chronic kidney disease; E11.22 Type 2 diabetes mellitus with diabetic chronic kidney disease; E78.5 Hyperlipidemia, unspecified; F17.210 Nicotine dependence, cigarettes, uncomplicated; Z91.14 Patient's other noncompliance with medication regimen; Z79.899 Other long term (current) drug therapy

== ENCOUNTER 2018-04-24 03:37 | Inpatient (IN) | payer MEDICARE ==
[2018-04-24] MEDS ORDERED: Labetalol 25mg/5ml Syringe IVP STA ×2 (03:42→09:19)
[2018-04-24] MEDS ORDERED: Labetalol 25mg/5ml Syringe ONE (03:49)
[2018-04-24] MEDS ORDERED: Propofol 10 mg/ml 1,000 MG/100 ML VIAL ONE (03:51)
[2018-04-24] MEDS ORDERED: Albuterol 0.083% Inhal Sol (2.5 mg/3 mL) UD ONE ×2 (03:55→04:52)
[2018-04-24 04:08] LABS: BASO # 0.1 K/uL (0.0-0.2); BASO % 0.7 % (0.0-2.0); EOS % 0.1 % (0.0-4.0); HEMOGLOBIN 12.9 g/dL (12.0-18.0); LYMPH # 1.8 K/uL (1.0-4.3); LYMPH % 10.2 % (20.0-40.0); MEAN CELL VOLUME 82.6 fL (80.0-94.0); MEAN CORPUSCULAR HEMOGLOBIN 26.5 pg (27.0-31.0); MEAN CORPUSCULAR HGB CONC 32.1 g/dL (33.0-37.0); MEAN PLATELET VOLUME 8.2 fL (7.2-11.7); MONO # 0.4 K/uL (0.0-0.8); MONO % 2.3 % (0.0-10.0); NEUT % 86.7 % (50.0-75.0); RBC 4.88 Mil/uL (4.40-5.90); RED CELL DISTRIBUTION WIDTH 16.3 % (11.5-14.5); WHITE BLOOD COUNT 17.3 K/uL (4.8-10.8)
--- NOTE | 2018-04-24 04:17 | C.PDOC ---
History Of Present Illness 67 year old male is brought to the ED by ALS for evaluation of SOB. Patient reports he woke up today with sudden onset of SOB. Patient had a NH, STENT placed 2 weeks ago. Patient denies CP, nausea, vomit, weakness, numbness. Chief Complaint (Nursing): Shortness Of Breath History Per: Patient, EMS History/Exam Limitations: clinical condition Onset/Duration Of Symptoms: Hrs Current Symptoms Are (Timing): Still Present Initiating Event: Upper Respiratory Illness Quality: "Pain" Exacerbating Factor(s): Exertion, Laying Flat Current Respiratory Medications: See Home Med List Associated Symptoms: Other (SOB) Reports Recently: Hospitalized (STENT 2 weeks ago) Recent travel outside of the [place]: No Additional History Per: Patient Past Medical History Reviewed: Historical Data, Nursing Documentation, Vital Signs Vital Signs: Last Vital Signs Temp Pulse 78 04/24/18 04:42 Resp 26 H 04/24/18 04:42 BP 149/95 H 04/24/18 04:42 Pulse Ox 98 04/24/18 04:48 - Medical History PMH: HTN Denies: Chronic Kidney Disease Other Surgeries: STENT 2 weeks ago Family History: States: Unknown Family Hx - Social History Hx Tobacco Use: Yes Hx Alcohol Use: Yes Hx Substance Use: No - Immunization History Hx Tetanus Toxoid Vaccination: No Hx Influenza Vaccination: No Hx Pneumococcal Vaccination: No Review Of Systems Constitutional: Negative for: Fever, Chills Cardiovascular: Positive for: Chest Pain Respiratory: Positive for: Shortness of Breath Gastrointestinal: Negative for: Nausea, Vomiting Skin: Negative for: Rash Neurological: Negative for: Weakness, Numbness, Headache, Dizziness Physical Exam - Physical Exam Appears: Non-toxic, In Acute Distress, Other (Respiratory distress) Skin: Normal Color, Warm, Dry, Diaphoretic Head: Atraumatic, Normacephalic Eye(s): bilateral: Normal Inspection Oral Mucosa: Moist Neck: Normal ROM, Supple Chest: Symmetrical Cardiovascular: Rhythm Regular Respiratory: Decreased Breath Sounds, No Rales, No Rhonchi, Wheezing (Bilateral) , Other (dyspnic. on BIPAP) Gastrointestinal/Abdominal: Soft, No Tenderness, No Guarding, No Rebound Extremity: Normal ROM, No Tenderness, Capillary Refill (< 2 seconds), No Swelling Pulses: Left Dorsalis Pedis: Normal, Right Dorsalis Pedis: Normal Neurological/Psych: Oriented x3, Normal Speech Gait: Unable To Assess ED Course And Treatment - Laboratory Results Result Diagrams: 04/24/18 04:02 04/24/18 04:02 ECG: Interpreted By Me, Viewed By Me ECG Rhythm: ST/T Changes ECG Interpretation: No Acute Changes, Abnormal O2 Sat by Pulse Oximetry: 98 (ON RA) Pulse Ox Interpretation: Normal - Radiology CXR: Interpreted by Me, Viewed By Me CXR Interpretation: Yes: Other (bilateral pleural effuion, left more than the right.) Medical Decision Making Medical Decision Making: Impression: SOB sudden onset Plan: * ABG * EKG * Labs * CXR * Morphine 2 mg IVP * Labetalol 20 mg IVP On arrival patient was noted to have BP of 220/110 on admission. Patient was given Morphine and Labetalol with improvement to condition. Patient remains on BIPAP. ICU Dr. Anthony was called Dr. Yeison Preston was called Disposition Discussed With : Mohan Latham Doctor Will See Patient In The: Hospital Counseled Patient/Family Regarding: Diagnosis - Disposition Disposition: HOSPITALIZED Disposition Time: 04:22 Condition: GUARDED Forms: [facility] (Lebanese) - Clinical Impression Clinical Impression: Acute pulmonary edema, Hypertensive crisis, CAD (coronary artery disease), Bilateral pleural effusion - Scribe Statement The provider has reviewed the documentation as recorded by the Scribe Jordan Oneill All medical record entries made by the Scribe were at my direction and personally dictated by me. I have reviewed the chart and agree that the record accurately reflects my personal performance of the history, physical exam, medical decision making, and the department course for this patient. I have also personally directed, reviewed, and agree with the discharge instructions and disposition.
[2018-04-24 04:19] LABS: INR 1.3; PROTHROMBIN TIME 14.4 SECONDS (9.7-12.2)
--- NOTE | 2018-04-24 04:25 | CP.PCM.CON ---
History of Present Illness - History of Present Illness History of Present Illness: Attending: Mohan Madsen Reason for Consult: Critical care management Chief Complaint: SOB/ Chest Pain The Patent was seen and Examined in the ED HPI: 67 years old male with hx of HTN with last admission on 04/06/18 with Dx of NSTEMI and coronary stent being placed at [facility]. He now comes after waking up with sudden unset of severe SOB, having to sit up in bed and gasp for air. This was associated with generalized chest pain at rest and diaphoresis. No nausea nor vomiting. PMH: HTN; NSTEMI PSH: Coronary artery stents placement SH: Alcohol socially; Light smoker; Live with family, No illegal drug use; FH: States: No known family hx Allergies: NKDA Medication: Reviewed Review of Systems - Constitutional Constitutional: Excessive Sweating. absent: Anorexia, Chills, Fever, Headache, Lethargy - EENT Eyes: Requires Corrective Lenses. absent: Diplopia, Floaters, Sees Flashes Ears: absent: Decreased Hearing, Ear Discharge, Tinnitus Nose/Mouth/Throat: absent: Epistaxis, Nasal Congestion, Nasal Obstruction, Nasal Trauma, Dental Pain, Dry Mouth - Cardiovascular Cardiovascular: Chest Pain, Diaphoresis, Dyspnea, Edema, Orthopnea, Paroxysmal Nocturnal Dyspnea - Respiratory Respiratory: Cough, Dyspnea, Wheezing, Chest Congestion - Gastrointestinal Gastrointestinal: absent: Abdominal Pain, Constipation, Diarrhea - Musculoskeletal Musculoskeletal: Joint Swelling, Muscle Weakness. absent: Arthralgias, Myalgias - Integumentary Integumentary: Swelling. absent: Pruritus, Rash, Skin Ulcer, Sores, Striae - Neurological Neurological: absent: Confusion, Dizziness, Focal Weakness, Headaches, Weakness - Psychiatric Psychiatric: absent: Anxiety, Depression, Panic Attacks - Endocrine Endocrine: absent: Palpitations, Polydipsia, Polyphagia, Polyuria - Hematologic/Lymphatic Hematologic: absent: Easy Bleeding, Easy Bruising Past Patient History - Past Medical History & Family History Past Medical History?: Yes - Past Social History Smoking Status: Light Smoker < 10 Cigarettes Daily Chewing Tobacco Use: No Cigar Use: No Alcohol: Social Drugs: Denies, Inhalants Home Situation {Lives}: With Family - CARDIAC Hx Hypertension: Yes - PULMONARY Hx Respiratory Disorders: No - NEUROLOGICAL Hx Neurological Disorder: No - HEENT Hx HEENT Problems: No - RENAL Hx Chronic Kidney Disease: No - ENDOCRINE/METABOLIC Hx Endocrine Disorders: No - HEMATOLOGICAL/ONCOLOGICAL Hx Blood Disorders: No - INTEGUMENTARY Hx Dermatological Problems: No - MUSCULOSKELETAL/RHEUMATOLOGICAL Hx Musculoskeletal Disorders: No Hx Falls: No - GASTROINTESTINAL Hx Gastrointestinal Disorders: No - GENITOURINARY/GYNECOLOGICAL Hx Genitourinary Disorders: No - PSYCHIATRIC Hx Substance Use: No - SURGICAL HISTORY Hx Surgeries: No - ANESTHESIA Hx Anesthesia: No Meds Allergies/Adverse Reactions: Allergies Allergy/AdvReac Type Severity Reaction Status Date / Time No Known Allergies Allergy Verified 04/06/18 17:12 Physical Exam - Constitutional Appears: In Acute Distress - Head Exam Head Exam: ATRAUMATIC, NORMAL INSPECTION, NORMOCEPHALIC - Eye Exam Eye Exam: EOMI, Normal appearance Pupil Exam: NORMAL ACCOMODATION - ENT Exam ENT Exam: Mucous Membranes Moist, Normal External Ear Exam, TM's Normal Bilaterally - Neck Exam Neck exam: Positive for: Full Rom, Normal Inspection. Negative for: Lymphadenopathy, Tenderness - Respiratory Exam Additional comments: Bibasal inspiratory rales and expiratory wheezes - Cardiovascular Exam Cardiovascular Exam: REGULAR RHYTHM, +S1, +S2. absent: Gallop - GI/Abdominal Exam Additional comments: Obese, Soft nontender. +ve bowel sounds, - Rectal Exam Rectal Exam: Deferred - Extremities Exam Extremities exam: Positive for: pedal edema. Negative for: calf tenderness Additional comments: Bilateral leg edema2+ - Back Exam Back exam: NORMAL INSPECTION. absent: CVA tenderness (L), CVA tenderness (R) - Neurological Exam Neurological exam: Alert, CN II-XII Intact, Oriented x3, Reflexes Normal - Psychiatric Exam Psychiatric exam: Normal Affect, Normal Mood - Skin Skin Exam: Dry, Intact, Normal Color, Warm Results - Vital Signs Recent Vital Signs: Last Vital Signs Temp Pulse 80 04/24/18 04:23 Resp 26 H 04/24/18 04:23 BP 134/105 H 04/24/18 04:23 Pulse Ox 98 04/24/18 04:23 - Labs Result Diagrams: 04/24/18 04:02 04/24/18 04:02 Labs: Laboratory Results - last 24 hr 04/24/18 04/24/18 04/24/18 03:58 04:02 04:02 WBC 17.3 H RBC 4.88 Hgb 12.9 Hct 40.3 MCV 82.6 MCH 26.5 L MCHC 32.1 L RDW 16.3 H Plt Count 424 H D MPV 8.2 Neut % (Auto) 86.7 H Lymph % (Auto) 10.2 L [place] % (Auto) 2.3 Eos % (Auto) 0.1 Baso % (Auto) 0.7 Neut # (Auto) 15.0 H Lymph # (Auto) 1.8 [place] # (Auto) 0.4 Eos # (Auto) 0.0 Baso # (Auto) 0.1 PT 14.4 H INR 1.3 APTT 34 POC Glucose (mg/dL) 205 H - Imaging and Cardiology Chest x-ray Status: Image reviewed by me Additional comment: Bilateral interstitial infiltrate with left basal opacity of pleural effusion. Assessment & Plan - Assessment and Plan (Free Text) Assessment: #. Hypercapneic Respiratory Failure #. Pulmonary Edema #. Hypertensive Crisis #. Leukocytosis #. Elevated blood Sugar Plan: 67 years old male with hx of HTN with last admission on 04/06/18 with Dx of NSTEMI and coronary stent being placed at [facility]. He now comes after waking up with sudden unset of severe SOB, having to sit up in bed and gasp for air. This was associated with generalized chest pain at rest and diaphoresis. No nausea nor vomiting. #. Hypercapneic Respiratory Failure due to the Acute Pulmonary edema. - BIPAP at settings I/P 20/10 rate of 20 and FiO2 of 60% - Follow ABG #. Acute Pulmonary Edema - Consult Dr Lam cardioliogist - Echo done 04/06/18 with LVEF of 55% - Lasix 40mg Q12 - Cozaar/ Metoprolol #. Hypertensive Crisis - Cozaar/ Metoprolol/Add Norvasc if needed - Follow blood pressures #. Reactive Leukocytosis - Follow WBC #. Elevated blood Sugar - Follow HbA1c #. DVT prophylaxis with SCD and Lovenox #. Code Status: Full - Date & Time Date: 04/24/18 Time: 04:24
[2018-04-24 04:28] LABS: ABG ALLEN TEST P; ARTERIAL BLOOD GAS HCO3 19.9 mmol/L (21-28); ARTERIAL BLOOD GAS O2 SAT 98.4 % (95-98); ARTERIAL BLOOD GAS PCO2 59 mm/Hg (35-45); ARTERIAL BLOOD GAS PH 7.19 (7.35-7.45); ARTERIAL BLOOD GAS PO2 152 mm/Hg (80-100); ARTERIAL BLOOD GAS TCO2 24.3 mmol/L (22-28)
[2018-04-24 04:35] LABS: ALBUMIN 3.8 g/dL (3.5-5.0); ALT/SGPT 47 U/L (21-72); AST/SGOT 41 U/L (17-59); BLOOD UREA NITROGEN 18 mg/dL (9-20); CALCIUM 8.8 mg/dl (8.6-10.4); GFR AFRICAN-AMERICAN > 60; GFR NON-AFRICAN AMERICAN 55
[2018-04-24] MEDS ORDERED: Albuterol 0.083% Inhal Sol (2.5 mg/3 mL) UD IH STA (04:36)
[2018-04-24 04:42] LABS: B-TYPE NATRIURETIC PEPTIDE 6510 pg/mL (0-900); CK-MB 7.59 ng/mL (0.0-3.38)
[2018-04-24 07:18] LABS: SQUAMOUS EPITHIAL 1 /hpf (0-5); URINE BACTERIA RARE (<OCC); URINE BILIRUBIN NEGATIVE (NEGATIVE); URINE BLOOD 2+ (NEGATIVE); URINE CLARITY Clear (Clear); URINE COLOR Yellow (YELLOW); URINE GLUCOSE (UA) NORMAL (Normal); URINE LEUKOCYTE ESTERASE NEG Leu/uL (Negative); URINE PROTEIN 1+ mg/dL (NEGATIVE); URINE UROBILINOGEN NORMAL mg/dL (0.2-1.0)
--- NOTE | 2018-04-24 07:25 | CP.CCUPN ---
<Jenny Medellin - Last Filed: 04/24/18 11:02> CCU Subjective - Physician Review Subjective (Free Text): Patient seen and examined at bedside. Reports breathing is okay only when he is on BiPAP. CCU Objective - Vital Signs / Intake & Output Vital Signs (Last 4 hours): Vital Signs Temp Pulse Resp BP Pulse Ox 04/24/18 05:58 71 24 174/115 H 100 04/24/18 05:26 97.7 F 80 26 H 159/107 H 100 04/24/18 04:55 72 26 H 157/97 H 100 04/24/18 04:51 98 04/24/18 04:42 78 26 H 149/95 H 100 04/24/18 04:23 80 26 H 134/105 H 100 04/24/18 04:20 134/105 H 04/24/18 04:06 28 H 04/24/18 03:52 90 24 140/90 98 04/24/18 03:50 80 Intake and Output (Last 8hrs): Intake & Output 04/23/18 04/24/18 04/24/18 22:59 06:59 14:59 Output Total 600 500 Balance -600 -500 Weight 210 lb Output: Urine 600 500 Urethral (Gonzales) 500 - Physical Exam Head: Positive for: Atraumatic, Normocephalic Pupils: Positive for: PERRL Extroacular Muscles: Positive for: EOMI Conjunctiva: Positive for: Normal Mouth: Positive for: Moist Mucous Membranes Respiratory/Chest: Positive for: Decreased Breath Sounds, Rales Cardiovascular: Positive for: Tachycardic Abdomen: Positive for: Normal Bowel Sounds. Negative for: Tenderness, Distention Upper Extremity: Positive for: Normal Inspection, NORMAL PULSES, Neurovascularly Intact, Capillary Refill < 2s Lower Extremity: Positive for: Normal Inspection, NORMAL PULSES, Neurovascularly Intact, Capillary Refill < 2 s Neurological: Positive for: GCS=15, CN II-XII Intact Skin: Positive for: Warm, Dry, Normal Color Psychiatric: Positive for: Alert, Oriented x 3, Normal Insight, Normal Concentration - Medications Active Medications: Active Medications Generic Name Dose Route Start Last Admin Trade Name Freq PRN Reason Stop Dose Admin Albuterol Sulfate 2.5 mg 04/24/18 08:00 Albuterol 0.083% Inhal Beata (2.5 Mg/3 Ml) Ud INH RQ6 [facility] Aspirin 81 mg 04/24/18 10:00 Ecotrin PO DAILY [facility] Enoxaparin Sodium 40 mg 04/24/18 10:00 Lovenox SC DAILY [facility] Folic Acid 1 mg 04/24/18 10:00 Folic Acid PO DAILY ALY Furosemide 40 mg 04/24/18 10:00 Lasix IVP Q12 ALY Losartan Potassium 100 mg 04/24/18 10:00 Cozaar PO DAILY [facility] Methylprednisolone 40 mg 04/24/18 11:00 Solu-Medrol IVP Q6H [facility] Metoprolol Succinate 50 mg 04/24/18 10:00 Toprol Xl PO DAILY [facility] Pantoprazole Sodium 40 mg 04/24/18 10:00 Protonix Ec Tab PO DAILY [facility] Thiamine HCl 100 mg 04/24/18 10:00 Vitamin B1 Tab PO DAILY [facility] Ticagrelor 90 mg 04/24/18 10:00 Brilinta PO BID ALY - Patient Studies Lab Studies: Lab Studies 04/24/18 04/24/18 04/24/18 Range/Units 05:25 04:21 04:20 WBC (4.8-10.8) K/uL RBC (4.40-5.90) Mil/uL Hgb (12.0-18.0) g/dL Hct (35.0-51.0) % MCV (80.0-94.0) fL MCH (27.0-31.0) pg MCHC (33.0-37.0) g/dL RDW (11.5-14.5) % Plt Count (130-400) K/uL MPV (7.2-11.7) fL Neut % (Auto) (50.0-75.0) % Lymph % (Auto) (20.0-40.0) % [place] % (Auto) (0.0-10.0) % Eos % (Auto) (0.0-4.0) % Baso % (Auto) (0.0-2.0) % Neut # (Auto) (1.8-7.0) K/uL Lymph # (Auto) (1.0-4.3) K/uL [place] # (Auto) (0.0-0.8) K/uL Eos # (Auto) (0.0-0.7) K/uL Baso # (Auto) (0.0-0.2) K/uL PT (9.7-12.2) SECONDS INR APTT (21-34) SECONDS D-Dimer, Quantitative 6441 H (0-243) ng/mlDDU Puncture Site Rra pCO2 59 H (35-45) mm/Hg pO2 152 H (80-100) mm/Hg HCO3 19.9 L (21-28) mmol/L ABG pH 7.19 L* (7.35-7.45) ABG Total CO2 24.3 (22-28) mmol/L ABG O2 Saturation 98.4 H (95-98) % ABG Base Excess -6.5 L (-2.0-3.0) mmol/L Jeremy Test P ABG Potassium 3.4 L (3.6-5.2) mmol/L A-a O2 Difference 487.0 mm/Hg Respiratory Index 3.2 Glucose 209 H (75-110) mg/dl Lactate 1.1 (0.7-2.1) mmol/L Vent Mode Bipap FiO2 100.0 % Inspiratory BiPAP 20 Expiratory BiPAP 10 Crit Value Called To Rasheed parks md Crit Value Called By Jacoby bermudez mannequin mounter Crit Value Read Back Y Blood Gas Notified Time 428 Sodium 140.0 (132-148) mmol/L Potassium (3.6-5.2) mmol/L Chloride 110.0 H (98-107) mmol/L Carbon Dioxide (22-30) mmol/L Anion Gap (10-20) BUN (9-20) mg/dL Creatinine (0.8-1.5) mg/dL Est GFR ( Amer) Est GFR (Non-Af Amer) POC Glucose (mg/dL) (65-110) mg/dL Random Glucose (75-110) mg/dL Calcium (8.6-10.4) mg/dl Total Bilirubin (0.2-1.3) mg/dL AST (17-59) U/L ALT (21-72) U/L Alkaline Phosphatase (38-126) U/L Total Creatine Kinase (55-170) U/L CK-MB (Mass) (0.0-3.38) ng/mL Troponin I (0.00-0.120) ng/mL NT-Pro-B Natriuret Pep (0-900) pg/mL Total Protein (6.3-8.3) g/dL Albumin (3.5-5.0) g/dL Globulin (2.2-3.9) gm/dL Albumin/Globulin Ratio (1.0-2.1) Arterial Blood Potassium 3.4 L (3.6-5.2) mmol/L Urine Color Yellow (YELLOW) Urine Clarity Clear (Clear) Urine pH 5.0 (5.0-8.0) Ur Specific [place] 1.008 (1.003-1.030) Urine Protein 1+ H (NEGATIVE) mg/dL Urine Glucose (UA) Normal (Normal) mg/dL Urine Ketones Negative (NEGATIVE) mg/dL Urine Blood 2+ H (NEGATIVE) Urine Nitrate Negative (NEGATIVE) Urine Bilirubin Negative (NEGATIVE) Urine Urobilinogen Normal (0.2-1.0) mg/dL Ur Leukocyte Esterase Neg (Negative) Isreal/uL Urine WBC (Auto) 3 (0-5) /hpf Urine RBC (Auto) 10 H (0-3) /hpf Ur Squamous Epith Cells 1 (0-5) /hpf Urine Bacteria Rare (<OCC) 04/24/18 04/24/18 04/24/18 Range/Units 04:02 04:02 04:02 WBC 17.3 H (4.8-10.8) K/uL RBC 4.88 (4.40-5.90) Mil/uL Hgb 12.9 (12.0-18.0) g/dL Hct 40.3 (35.0-51.0) % MCV 82.6 (80.0-94.0) fL MCH 26.5 L (27.0-31.0) pg MCHC 32.1 L (33.0-37.0) g/dL RDW 16.3 H (11.5-14.5) % Plt Count 424 H D (130-400) K/uL MPV 8.2 (7.2-11.7) fL Neut % (Auto) 86.7 H (50.0-75.0) % Lymph % (Auto) 10.2 L (20.0-40.0) % [place] % (Auto) 2.3 (0.0-10.0) % Eos % (Auto) 0.1 (0.0-4.0) % Baso % (Auto) 0.7 (0.0-2.0) % Neut # (Auto) 15.0 H (1.8-7.0) K/uL Lymph # (Auto) 1.8 (1.0-4.3) K/uL [place] # (Auto) 0.4 (0.0-0.8) K/uL Eos # (Auto) 0.0 (0.0-0.7) K/uL Baso # (Auto) 0.1 (0.0-0.2) K/uL PT 14.4 H (9.7-12.2) SECONDS INR 1.3 APTT 34 (21-34) SECONDS D-Dimer, Quantitative (0-243) ng/mlDDU Puncture Site pCO2 (35-45) mm/Hg pO2 (80-100) mm/Hg HCO3 (21-28) mmol/L ABG pH (7.35-7.45) ABG Total CO2 (22-28) mmol/L ABG O2 Saturation (95-98) % ABG Base Excess (-2.0-3.0) mmol/L Jeremy Test ABG Potassium (3.6-5.2) mmol/L A-a O2 Difference mm/Hg Respiratory Index Glucose (75-110) mg/dl Lactate (0.7-2.1) mmol/L Vent Mode FiO2 % Inspiratory BiPAP Expiratory BiPAP Crit Value Called To Crit Value Called By Crit Value Read Back Blood Gas Notified Time Sodium 146 (132-148) mmol/L Potassium 4.3 (3.6-5.2) mmol/L Chloride 106 (98-107) mmol/L Carbon Dioxide 23 (22-30) mmol/L Anion Gap 20 (10-20) BUN 18 (9-20) mg/dL Creatinine 1.3 (0.8-1.5) mg/dL Est GFR ( Amer) > 60 Est GFR (Non-Af Amer) 55 POC Glucose (mg/dL) (65-110) mg/dL Random Glucose 214 H (75-110) mg/dL Calcium 8.8 (8.6-10.4) mg/dl Total Bilirubin 0.5 (0.2-1.3) mg/dL AST 41 (17-59) U/L ALT 47 (21-72) U/L Alkaline Phosphatase 128 H D (38-126) U/L Total Creatine Kinase 196 H (55-170) U/L CK-MB (Mass) 7.59 H (0.0-3.38) ng/mL Troponin I 0.2870 H* (0.00-0.120) ng/mL NT-Pro-B Natriuret Pep 6510 H (0-900) pg/mL Total Protein 7.7 (6.3-8.3) g/dL Albumin 3.8 (3.5-5.0) g/dL Globulin 3.9 (2.2-3.9) gm/dL Albumin/Globulin Ratio 1.0 (1.0-2.1) Arterial Blood Potassium (3.6-5.2) mmol/L Urine Color (YELLOW) Urine Clarity (Clear) Urine pH (5.0-8.0) Ur Specific [place] (1.003-1.030) Urine Protein (NEGATIVE) mg/dL Urine Glucose (UA) (Normal) mg/dL Urine Ketones (NEGATIVE) mg/dL Urine Blood (NEGATIVE) Urine Nitrate (NEGATIVE) Urine Bilirubin (NEGATIVE) Urine Urobilinogen (0.2-1.0) mg/dL Ur Leukocyte Esterase (Negative) Isreal/uL Urine WBC (Auto) (0-5) /hpf Urine RBC (Auto) (0-3) /hpf Ur Squamous Epith Cells (0-5) /hpf Urine Bacteria (<OCC) 04/24/18 Range/Units 03:58 WBC (4.8-10.8) K/uL RBC (4.40-5.90) Mil/uL Hgb (12.0-18.0) g/dL Hct (35.0-51.0) % MCV (80.0-94.0) fL MCH (27.0-31.0) pg MCHC (33.0-37.0) g/dL RDW (11.5-14.5) % Plt Count (130-400) K/uL MPV (7.2-11.7) fL Neut % (Auto) (50.0-75.0) % Lymph % (Auto) (20.0-40.0) % [place] % (Auto) (0.0-10.0) % Eos % (Auto) (0.0-4.0) % Baso % (Auto) (0.0-2.0) % Neut # (Auto) (1.8-7.0) K/uL Lymph # (Auto) (1.0-4.3) K/uL [place] # (Auto) (0.0-0.8) K/uL Eos # (Auto) (0.0-0.7) K/uL Baso # (Auto) (0.0-0.2) K/uL PT (9.7-12.2) SECONDS INR APTT (21-34) SECONDS D-Dimer, Quantitative (0-243) ng/mlDDU Puncture Site pCO2 (35-45) mm/Hg pO2 (80-100) mm/Hg HCO3 (21-28) mmol/L ABG pH (7.35-7.45) ABG Total CO2 (22-28) mmol/L ABG O2 Saturation (95-98) % ABG Base Excess (-2.0-3.0) mmol/L Jeremy Test ABG Potassium (3.6-5.2) mmol/L A-a O2 Difference mm/Hg Respiratory Index Glucose (75-110) mg/dl Lactate (0.7-2.1) mmol/L Vent Mode FiO2 % Inspiratory BiPAP Expiratory BiPAP Crit Value Called To Crit Value Called By Crit Value Read Back Blood Gas Notified Time Sodium (132-148) mmol/L Potassium (3.6-5.2) mmol/L Chloride (98-107) mmol/L Carbon Dioxide (22-30) mmol/L Anion Gap (10-20) BUN (9-20) mg/dL Creatinine (0.8-1.5) mg/dL Est GFR ( Amer) Est GFR (Non-Af Amer) POC Glucose (mg/dL) 205 H (65-110) mg/dL Random Glucose (75-110) mg/dL Calcium (8.6-10.4) mg/dl Total Bilirubin (0.2-1.3) mg/dL AST (17-59) U/L ALT (21-72) U/L Alkaline Phosphatase (38-126) U/L Total Creatine Kinase (55-170) U/L CK-MB (Mass) (0.0-3.38) ng/mL Troponin I (0.00-0.120) ng/mL NT-Pro-B Natriuret Pep (0-900) pg/mL Total Protein (6.3-8.3) g/dL Albumin (3.5-5.0) g/dL Globulin (2.2-3.9) gm/dL Albumin/Globulin Ratio (1.0-2.1) Arterial Blood Potassium (3.6-5.2) mmol/L Urine Color (YELLOW) Urine Clarity (Clear) Urine pH (5.0-8.0) Ur Specific [place] (1.003-1.030) Urine Protein (NEGATIVE) mg/dL Urine Glucose (UA) (Normal) mg/dL Urine Ketones (NEGATIVE) mg/dL Urine Blood (NEGATIVE) Urine Nitrate (NEGATIVE) Urine Bilirubin (NEGATIVE) Urine Urobilinogen (0.2-1.0) mg/dL Ur Leukocyte Esterase (Negative) Isreal/uL Urine WBC (Auto) (0-5) /hpf Urine RBC (Auto) (0-3) /hpf Ur Squamous Epith Cells (0-5) /hpf Urine Bacteria (<OCC) Laboratory Results - last 24 hr 04/24/18 04/24/18 04/24/18 03:58 04:02 04:02 WBC 17.3 H RBC 4.88 Hgb 12.9 Hct 40.3 MCV 82.6 MCH 26.5 L MCHC 32.1 L RDW 16.3 H Plt Count 424 H D MPV 8.2 Neut % (Auto) 86.7 H Lymph % (Auto) 10.2 L [place] % (Auto) 2.3 Eos % (Auto) 0.1 Baso % (Auto) 0.7 Neut # (Auto) 15.0 H Lymph # (Auto) 1.8 [place] # (Auto) 0.4 Eos # (Auto) 0.0 Baso # (Auto) 0.1 PT 14.4 H INR 1.3 APTT 34 D-Dimer, Quantitative Puncture Site pCO2 pO2 HCO3 ABG pH ABG Total CO2 ABG O2 Saturation ABG Base Excess Jeremy Test ABG Potassium A-a O2 Difference Respiratory Index Glucose Lactate Vent Mode FiO2 Inspiratory BiPAP Expiratory BiPAP Crit Value Called To Crit Value Called By Crit Value Read Back Blood Gas Notified Time Sodium Potassium Chloride Carbon Dioxide Anion Gap BUN Creatinine Est GFR ( Amer) Est GFR (Non-Af Amer) POC Glucose (mg/dL) 205 H Random Glucose Calcium Total Bilirubin AST ALT Alkaline Phosphatase Total Creatine Kinase CK-MB (Mass) Troponin I NT-Pro-B Natriuret Pep Total Protein Albumin Globulin Albumin/Globulin Ratio Arterial Blood Potassium Urine Color Urine Clarity Urine pH Ur Specific [place] Urine Protein Urine Glucose (UA) Urine Ketones Urine Blood Urine Nitrate Urine Bilirubin Urine Urobilinogen Ur Leukocyte Esterase Urine WBC (Auto) Urine RBC (Auto) Ur Squamous Epith Cells Urine Bacteria 04/24/18 04/24/18 04/24/18 04:02 04:20 04:21 WBC RBC Hgb Hct MCV MCH MCHC RDW Plt Count MPV Neut % (Auto) Lymph % (Auto) [place] % (Auto) Eos % (Auto) Baso % (Auto) Neut # (Auto) Lymph # (Auto) [place] # (Auto) Eos # (Auto) Baso # (Auto) PT INR APTT D-Dimer, Quantitative 6441 H Puncture Site Rra pCO2 59 H pO2 152 H HCO3 19.9 L ABG pH 7.19 L* ABG Total CO2 24.3 ABG O2 Saturation 98.4 H ABG Base Excess -6.5 L Jeremy Test P ABG Potassium 3.4 L A-a O2 Difference 487.0 Respiratory Index 3.2 Glucose 209 H Lactate 1.1 Vent Mode Bipap FiO2 100.0 Inspiratory BiPAP 20 Expiratory BiPAP 10 Crit Value Called To Rasheed parks md Crit Value Called By Jacoby bermudez mannequin mounter Crit Value Read Back Y Blood Gas Notified Time 428 Sodium 146 140.0 Potassium 4.3 Chloride 106 110.0 H Carbon Dioxide 23 Anion Gap 20 BUN 18 Creatinine 1.3 Est GFR ( Amer) > 60 Est GFR (Non-Af Amer) 55 POC Glucose (mg/dL) Random Glucose 214 H Calcium 8.8 Total Bilirubin 0.5 AST 41 ALT 47 Alkaline Phosphatase 128 H D Total Creatine Kinase 196 H CK-MB (Mass) 7.59 H Troponin I 0.2870 H* NT-Pro-B Natriuret Pep 6510 H Total Protein 7.7 Albumin 3.8 Globulin 3.9 Albumin/Globulin Ratio 1.0 Arterial Blood Potassium 3.4 L Urine Color Urine Clarity Urine pH Ur Specific [place] Urine Protein Urine Glucose (UA) Urine Ketones Urine Blood Urine Nitrate Urine Bilirubin Urine Urobilinogen Ur Leukocyte Esterase Urine WBC (Auto) Urine RBC (Auto) Ur Squamous Epith Cells Urine Bacteria 04/24/18 05:25 WBC RBC Hgb Hct MCV MCH MCHC RDW Plt Count MPV Neut % (Auto) Lymph % (Auto) [place] % (Auto) Eos % (Auto) Baso % (Auto) Neut # (Auto) Lymph # (Auto) [place] # (Auto) Eos # (Auto) Baso # (Auto) PT INR APTT D-Dimer, Quantitative Puncture Site pCO2 pO2 HCO3 ABG pH ABG Total CO2 ABG O2 Saturation ABG Base Excess Jeremy Test ABG Potassium A-a O2 Difference Respiratory Index Glucose Lactate Vent Mode FiO2 Inspiratory BiPAP Expiratory BiPAP Crit Value Called To Crit Value Called By Crit Value Read Back Blood Gas Notified Time Sodium Potassium Chloride Carbon Dioxide Anion Gap BUN Creatinine Est GFR ( Amer) Est GFR (Non-Af Amer) POC Glucose (mg/dL) Random Glucose Calcium Total Bilirubin AST ALT Alkaline Phosphatase Total Creatine Kinase CK-MB (Mass) Troponin I NT-Pro-B Natriuret Pep Total Protein Albumin Globulin Albumin/Globulin Ratio Arterial Blood Potassium Urine Color Yellow Urine Clarity Clear Urine pH 5.0 Ur Specific [place] 1.008 Urine Protein 1+ H Urine Glucose (UA) Normal Urine Ketones Negative Urine Blood 2+ H Urine Nitrate Negative Urine Bilirubin Negative Urine Urobilinogen Normal Ur Leukocyte Esterase Neg Urine WBC (Auto) 3 Urine RBC (Auto) 10 H Ur Squamous Epith Cells 1 Urine Bacteria Rare EKG/Cardiology Studies: Cardiology / EKG Studies 04/24/18 03:55 ELECTROCARDIOGRAM Stat Comment: Mode Of Transportation: BED Reason For Exam: bed 6 04/24/18 05:15 EKG [ELECTROCARDIOGRAM] Stat Comment: Mode Of Transportation: PORTABLE Reason For Exam: SOB/ChestPain 04/24/18 07:00 EKG [ELECTROCARDIOGRAM] Routine Comment: Mode Of Transportation: PORTABLE Reason For Exam: SOB/Chest pain Fingerstick Blood Sugar Results: 205 Critical Care Progress Note - Nutrition Nutrition: Nutrition Category Date Time Status Heart Healthy Diet [DIET] Diets 04/24/18 Breakfast Active Assessment/Plan - Assessment and Plan (Free Text) Assessment: This is a 67 year old male with PMHx of HTN, HLD, New onset DM with A1C 6.5 who on 04/06/18 had NSTEMI, [place] [facility] [place] and had ??? intervention. Patient returns today with chest pain, severe SOB, found to be in Hypercapneic Respiratory Failure, Pulmonary Edema and Hypertensive Urgency. Plan: Neuro: AAO x3 Cardio: A: Chest pain -- Dr. Lam reconsulted - Serial ROMIs, EKGs A: Hypertensive Urgency - 220/110 on admission - Was given labetalol and lisinopril in the ED - Started on Lopressor 50, Cozaar 100 daily - Started on Nitro drip - Continue to monitor A: NSTEMI Cardiology - Dr. Latham, Dr. Lam - S/P Cardiac [place] today with Dr. Lam[place] [facility] [place] - ECHO 04/06/18: Hypertensive heart, LVEF of 55% A: Hx HLD - Lipid panel - WNL - Crestor 10mg Management: - ASA, Brilinta, Lopressor 50mg daily, Cozaar 100mg PO daily, Crestor 10mg Endo: A: T2DM - Accuchecks - ISS- Low - Will instruct diet, exercise, and weight loss - Started BB, ACEi, Crestor - A1C 6.5 Pulm: A: Hypercapneic Respiratory Failure due to the Acute Pulmonary Edema - Lasix Q12, BiPAP - Nitro Drip - Serial CXRs ID: - Afebrile, leukocytosis, left shift, no bandemia - Started on Vanco, Zosyn (in light of recent hospital admission) - F/U hawkins cultures, procal Prophylaxis - Protonix - SCDs, Lovenox - PT/ OT Eval DW Jenny Lazo DO, PGY-1 <Rosalina Omer - Last Filed: 04/24/18 13:55> CCU Objective - Vital Signs / Intake & Output Vital Signs (Last 4 hours): Vital Signs Temp Pulse Resp BP Pulse Ox 04/24/18 13:43 88 04/24/18 13:11 88 24 135/93 H 95 04/24/18 13:00 89 26 H 97 04/24/18 12:45 91 H 22 96 04/24/18 12:38 93 H 32 H 136/94 H 96 04/24/18 12:30 78 26 H 95 04/24/18 12:22 90 21 133/96 H 94 L 04/24/18 12:15 92 H 32 H 96 04/24/18 12:07 88 35 H 140/86 04/24/18 12:00 97.8 F 85 30 H 95 04/24/18 11:51 88 30 H 156/103 H 04/24/18 11:30 79 31 H 181/110 H 94 L 04/24/18 11:15 89 21 96 04/24/18 11:07 91 H 28 H 173/113 H 100 04/24/18 11:00 81 33 H 98 04/24/18 10:50 87 30 H 171/113 H 97 04/24/18 10:45 77 29 H 98 04/24/18 10:35 100 H 04/24/18 10:19 83 22 165/109 H 99 04/24/18 10:07 94 H 31 H 182/125 H 100 04/24/18 10:00 85 23 99 04/24/18 09:52 93 H 27 H 176/117 H 98 Intake and Output (Last 8hrs): Intake & Output 04/23/18 04/24/18 04/24/18 22:59 06:59 14:59 Intake Total 517 Output Total 600 1700 Balance -600 -1183 Weight 210 lb Intake: IV 0 Intake, IV Amount 277 Left Hand 27 Left Wrist 250 Oral 240 Output: Urine 600 1700 Urethral (Gonzales) 1700 - Medications Active Medications: Active Medications Generic Name Dose Route Start Last Admin Trade Name Freq PRN Reason Stop Dose Admin Albuterol/Ipratropium 3 ml 04/24/18 10:00 04/24/18 11:49 Duoneb 3 Mg/0.5 Mg (3 Ml) Ud INH 3 ml RQ4 ALY Administration Amlodipine Besylate 10 mg 04/24/18 12:00 04/24/18 12:52 Norvasc PO Not Given DAILY ALY Aspirin 81 mg 04/24/18 10:00 04/24/18 09:04 Ecotrin PO 81 mg DAILY ALY Administration Furosemide 40 mg 04/24/18 10:00 04/24/18 09:03 Lasix IVP 40 mg Q12 ALY Administration Nitroglycerin/Dextrose 50 mg in 250 mls @ 7.5 mls/hr 04/24/18 10:30 04/24/18 11:39 Nitroglycerin 50 Mg/250 Ml D5w IV 30 mcg/min .Q24H ALY 9 mls/hr Protocol Titration 25 MCG/MIN Piperacillin Sod/Tazobactam Sod 3.375 gm in 50 mls @ 100 mls/hr 04/24/18 10: 45 04/24/18 11:14 Zosyn 3.375 Gm Iv Premix IVPB 100 mls/hr Q6H ALY Administration Protocol Vancomycin/Sodium Chloride 1 gm in 200 mls @ 133 mls/hr 04/24/18 11:15 11:15 Vancomycin 1 Gm/Ns 200 Ml IVPB 04/29/18 11:16 133 mls/hr DAILY@1115 LAY Administration Protocol Heparin Sodium/Sodium Chloride 25,000 units in 250 mls @ 11.43 mls/hr 13:40 Heparin 16826 Units/250ml 1/2 Normal Saline IV .[id number] PRN PROTOCOL Protocol 12 UNITS/KG/HR Insulin Human Regular 0 unit 04/24/18 11:30 04/24/18 11:38 Novolin R SC 2 u ACHS ALY Administration Protocol Losartan Potassium 100 mg 04/24/18 10:00 04/24/18 09:04 Cozaar PO 100 mg DAILY ALY Administration Methylprednisolone 40 mg 04/24/18 11:00 04/24/18 11:07 Solu-Medrol IVP 40 mg Q6H ALY Administration Metoprolol Succinate 50 mg 04/24/18 10:00 04/24/18 09:04 Toprol Xl PO 50 mg DAILY ALY Administration Pantoprazole Sodium 40 mg 04/24/18 10:00 04/24/18 09:04 Protonix Ec Tab PO 40 mg DAILY ALY Administration Rosuvastatin Calcium 10 mg 04/24/18 22:00 Crestor PO HS ALY Ticagrelor 90 mg 04/24/18 10:00 04/24/18 09:04 Brilinta PO 90 mg BID ALY Administration - Patient Studies Lab Studies: Lab Studies 04/24/18 04/24/18 04/24/18 Range/Units 12:15 12:15 11:21 WBC 12.4 H (4.8-10.8) K/uL RBC 4.80 (4.40-5.90) Mil/uL Hgb 12.7 (12.0-18.0) g/dL Hct 38.3 (35.0-51.0) % MCV 79.8 L D (80.0-94.0) fL MCH 26.4 L (27.0-31.0) pg MCHC 33.1 (33.0-37.0) g/dL RDW 16.3 H (11.5-14.5) % Plt Count 435 H (130-400) K/uL MPV 7.8 (7.2-11.7) fL Neut % (Auto) 97.2 H (50.0-75.0) % Lymph % (Auto) 1.8 L (20.0-40.0) % [place] % (Auto) 0.7 (0.0-10.0) % Eos % (Auto) 0.0 (0.0-4.0) % Baso % (Auto) 0.3 (0.0-2.0) % Neut # (Auto) 12.1 H (1.8-7.0) K/uL Lymph # (Auto) 0.2 L (1.0-4.3) K/uL [place] # (Auto) 0.1 (0.0-0.8) K/uL Eos # (Auto) 0.0 (0.0-0.7) K/uL Baso # (Auto) 0.0 (0.0-0.2) K/uL Neutrophils % (Manual) 96 H (50-75) % Lymphocytes % (Manual) 3 L (20-40) % Monocytes % (Manual) 1 (0-10) % Platelet Estimate Normal (NORMAL) Anisocytosis (manual) Slight PT (9.7-12.2) SECONDS INR APTT (21-34) SECONDS D-Dimer, Quantitative (0-243) ng/mlDDU Puncture Site pCO2 (35-45) mm/Hg pO2 (80-100) mm/Hg HCO3 (21-28) mmol/L ABG pH (7.35-7.45) ABG Total CO2 (22-28) mmol/L ABG O2 Saturation (95-98) % ABG Base Excess (-2.0-3.0) mmol/L Jeremy Test ABG Potassium (3.6-5.2) mmol/L A-a O2 Difference mm/Hg Respiratory Index Glucose (75-110) mg/dl Lactate (0.7-2.1) mmol/L Vent Mode FiO2 % Inspiratory BiPAP Expiratory BiPAP Crit Value Called To Crit Value Called By Crit Value Read Back Blood Gas Notified Time Sodium 142 (132-148) mmol/L Potassium 4.3 (3.6-5.2) mmol/L Chloride 101 (98-107) mmol/L Carbon Dioxide 26 (22-30) mmol/L Anion Gap 18 (10-20) BUN 21 H (9-20) mg/dL Creatinine 1.2 (0.8-1.5) mg/dL Est GFR ( Amer) > 60 Est GFR (Non-Af Amer) > 60 POC Glucose (mg/dL) 204 H (65-110) mg/dL Random Glucose 210 H (75-110) mg/dL Calcium 8.6 (8.6-10.4) mg/dl Phosphorus 3.6 (2.5-4.5) mg/dL Magnesium 1.9 (1.6-2.3) mg/dL Total Bilirubin 0.6 (0.2-1.3) mg/dL AST 214 H D (17-59) U/L ALT 53 (21-72) U/L Alkaline Phosphatase 127 H (38-126) U/L Total Creatine Kinase 1011 H (55-170) U/L CK-MB (Mass) 88.5 H (0.0-3.38) ng/mL Troponin I 15.9000 H* (0.00-0.120) ng/mL NT-Pro-B Natriuret Pep (0-900) pg/mL Total Protein 7.3 (6.3-8.3) g/dL Albumin 3.7 (3.5-5.0) g/dL Globulin 3.6 (2.2-3.9) gm/dL Albumin/Globulin Ratio 1.0 (1.0-2.1) Procalcitonin (0.19-0.49) NG/ML Arterial Blood Potassium (3.6-5.2) mmol/L Urine Color (YELLOW) Urine Clarity (Clear) Urine pH (5.0-8.0) Ur Specific [place] (1.003-1.030) Urine Protein (NEGATIVE) mg/dL Urine Glucose (UA) (Normal) mg/dL Urine Ketones (NEGATIVE) mg/dL Urine Blood (NEGATIVE) Urine Nitrate (NEGATIVE) Urine Bilirubin (NEGATIVE) Urine Urobilinogen (0.2-1.0) mg/dL Ur Leukocyte Esterase (Negative) Isreal/uL Urine WBC (Auto) (0-5) /hpf Urine RBC (Auto) (0-3) /hpf Ur Squamous Epith Cells (0-5) /hpf Urine Bacteria (<OCC) 04/24/18 04/24/18 04/24/18 Range/Units 09:56 07:44 05:25 WBC (4.8-10.8) K/uL RBC (4.40-5.90) Mil/uL Hgb (12.0-18.0) g/dL Hct (35.0-51.0) % MCV (80.0-94.0) fL MCH (27.0-31.0) pg MCHC (33.0-37.0) g/dL RDW (11.5-14.5) % Plt Count (130-400) K/uL MPV (7.2-11.7) fL Neut % (Auto) (50.0-75.0) % Lymph % (Auto) (20.0-40.0) % [place] % (Auto) (0.0-10.0) % Eos % (Auto) (0.0-4.0) % Baso % (Auto) (0.0-2.0) % Neut # (Auto) (1.8-7.0) K/uL Lymph # (Auto) (1.0-4.3) K/uL [place] # (Auto) (0.0-0.8) K/uL Eos # (Auto) (0.0-0.7) K/uL Baso # (Auto) (0.0-0.2) K/uL Neutrophils % (Manual) (50-75) % Lymphocytes % (Manual) (20-40) % Monocytes % (Manual) (0-10) % Platelet Estimate (NORMAL) Anisocytosis (manual) PT (9.7-12.2) SECONDS INR APTT (21-34) SECONDS D-Dimer, Quantitative (0-243) ng/mlDDU Puncture Site pCO2 (35-45) mm/Hg pO2 (80-100) mm/Hg HCO3 (21-28) mmol/L ABG pH (7.35-7.45) ABG Total CO2 (22-28) mmol/L ABG O2 Saturation (95-98) % ABG Base Excess (-2.0-3.0) mmol/L Jeremy Test ABG Potassium (3.6-5.2) mmol/L A-a O2 Difference mm/Hg Respiratory Index Glucose (75-110) mg/dl Lactate (0.7-2.1) mmol/L Vent Mode FiO2 % Inspiratory BiPAP Expiratory BiPAP Crit Value Called To Crit Value Called By Crit Value Read Back Blood Gas Notified Time Sodium (132-148) mmol/L Potassium (3.6-5.2) mmol/L Chloride (98-107) mmol/L Carbon Dioxide (22-30) mmol/L Anion Gap (10-20) BUN (9-20) mg/dL Creatinine (0.8-1.5) mg/dL Est GFR ( Amer) Est GFR (Non-Af Amer) POC Glucose (mg/dL) 153 H (65-110) mg/dL Random Glucose (75-110) mg/dL Calcium (8.6-10.4) mg/dl Phosphorus (2.5-4.5) mg/dL Magnesium (1.6-2.3) mg/dL Total Bilirubin (0.2-1.3) mg/dL AST (17-59) U/L ALT (21-72) U/L Alkaline Phosphatase (38-126) U/L Total Creatine Kinase (55-170) U/L CK-MB (Mass) (0.0-3.38) ng/mL Troponin I (0.00-0.120) ng/mL NT-Pro-B Natriuret Pep (0-900) pg/mL Total Protein (6.3-8.3) g/dL Albumin (3.5-5.0) g/dL Globulin (2.2-3.9) gm/dL Albumin/Globulin Ratio (1.0-2.1) Procalcitonin 1.75 H (0.19-0.49) NG/ML Arterial Blood Potassium (3.6-5.2) mmol/L Urine Color Yellow (YELLOW) Urine Clarity Clear (Clear) Urine pH 5.0 (5.0-8.0) Ur Specific [place] 1.008 (1.003-1.030) Urine Protein 1+ H (NEGATIVE) mg/dL Urine Glucose (UA) Normal (Normal) mg/dL Urine Ketones Negative (NEGATIVE) mg/dL Urine Blood 2+ H (NEGATIVE) Urine Nitrate Negative (NEGATIVE) Urine Bilirubin Negative (NEGATIVE) Urine Urobilinogen Normal (0.2-1.0) mg/dL Ur Leukocyte Esterase Neg (Negative) Isreal/uL Urine WBC (Auto) 3 (0-5) /hpf Urine RBC (Auto) 10 H (0-3) /hpf Ur Squamous Epith Cells 1 (0-5) /hpf Urine Bacteria Rare (<OCC) 04/24/18 04/24/18 04/24/18 Range/Units 04:21 04:20 04:02 WBC (4.8-10.8) K/uL RBC (4.40-5.90) Mil/uL Hgb (12.0-18.0) g/dL Hct (35.0-51.0) % MCV (80.0-94.0) fL MCH (27.0-31.0) pg MCHC (33.0-37.0) g/dL RDW (11.5-14.5) % Plt Count (130-400) K/uL MPV (7.2-11.7) fL Neut % (Auto) (50.0-75.0) % Lymph % (Auto) (20.0-40.0) % [place] % (Auto) (0.0-10.0) % Eos % (Auto) (0.0-4.0) % Baso % (Auto) (0.0-2.0) % Neut # (Auto) (1.8-7.0) K/uL Lymph # (Auto) (1.0-4.3) K/uL [place] # (Auto) (0.0-0.8) K/uL Eos # (Auto) (0.0-0.7) K/uL Baso # (Auto) (0.0-0.2) K/uL Neutrophils % (Manual) (50-75) % Lymphocytes % (Manual) (20-40) % Monocytes % (Manual) (0-10) % Platelet Estimate (NORMAL) Anisocytosis (manual) PT (9.7-12.2) SECONDS INR APTT (21-34) SECONDS D-Dimer, Quantitative 6441 H (0-243) ng/mlDDU Puncture Site Rra pCO2 59 H (35-45) mm/Hg pO2 152 H (80-100) mm/Hg HCO3 19.9 L (21-28) mmol/L ABG pH 7.19 L* (7.35-7.45) ABG Total CO2 24.3 (22-28) mmol/L ABG O2 Saturation 98.4 H (95-98) % ABG Base Excess -6.5 L (-2.0-3.0) mmol/L Jeremy Test P ABG Potassium 3.4 L (3.6-5.2) mmol/L A-a O2 Difference 487.0 mm/Hg Respiratory Index 3.2 Glucose 209 H (75-110) mg/dl Lactate 1.1 (0.7-2.1) mmol/L Vent Mode Bipap FiO2 100.0 % Inspiratory BiPAP 20 Expiratory BiPAP 10 Crit Value Called To Rasheed parks md Crit Value Called By Jacoby bermudez mannequin mounter Crit Value Read Back Y Blood Gas Notified Time 428 Sodium 140.0 146 (132-148) mmol/L Potassium 4.3 (3.6-5.2) mmol/L Chloride 110.0 H 106 (98-107) mmol/L Carbon Dioxide 23 (22-30) mmol/L Anion Gap 20 (10-20) BUN 18 (9-20) mg/dL Creatinine 1.3 (0.8-1.5) mg/dL Est GFR ( Amer) > 60 Est GFR (Non-Af Amer) 55 POC Glucose (mg/dL) (65-110) mg/dL Random Glucose 214 H (75-110) mg/dL Calcium 8.8 (8.6-10.4) mg/dl Phosphorus (2.5-4.5) mg/dL Magnesium (1.6-2.3) mg/dL Total Bilirubin 0.5 (0.2-1.3) mg/dL AST 41 (17-59) U/L ALT 47 (21-72) U/L Alkaline Phosphatase 128 H D (38-126) U/L Total Creatine Kinase 196 H (55-170) U/L CK-MB (Mass) 7.59 H (0.0-3.38) ng/mL Troponin I 0.2870 H* (0.00-0.120) ng/mL NT-Pro-B Natriuret Pep 6510 H (0-900) pg/mL Total Protein 7.7 (6.3-8.3) g/dL Albumin 3.8 (3.5-5.0) g/dL Globulin 3.9 (2.2-3.9) gm/dL Albumin/Globulin Ratio 1.0 (1.0-2.1) Procalcitonin (0.19-0.49) NG/ML Arterial Blood Potassium 3.4 L (3.6-5.2) mmol/L Urine Color (YELLOW) Urine Clarity (Clear) Urine pH (5.0-8.0) Ur Specific [place] (1.003-1.030) Urine Protein (NEGATIVE) mg/dL Urine Glucose (UA) (Normal) mg/dL Urine Ketones (NEGATIVE) mg/dL Urine Blood (NEGATIVE) Urine Nitrate (NEGATIVE) Urine Bilirubin (NEGATIVE) Urine Urobilinogen (0.2-1.0) mg/dL Ur Leukocyte Esterase (Negative) Isreal/uL Urine WBC (Auto) (0-5) /hpf Urine RBC (Auto) (0-3) /hpf Ur Squamous Epith Cells (0-5) /hpf Urine Bacteria (<OCC) 04/24/18 04/24/18 04/24/18 Range/Units 04:02 04:02 03:58 WBC 17.3 H (4.8-10.8) K/uL RBC 4.88 (4.40-5.90) Mil/uL Hgb 12.9 (12.0-18.0) g/dL Hct 40.3 (35.0-51.0) % MCV 82.6 (80.0-94.0) fL MCH 26.5 L (27.0-31.0) pg MCHC 32.1 L (33.0-37.0) g/dL RDW 16.3 H (11.5-14.5) % Plt Count 424 H D (130-400) K/uL MPV 8.2 (7.2-11.7) fL Neut % (Auto) 86.7 H (50.0-75.0) % Lymph % (Auto) 10.2 L (20.0-40.0) % [place] % (Auto) 2.3 (0.0-10.0) % Eos % (Auto) 0.1 (0.0-4.0) % Baso % (Auto) 0.7 (0.0-2.0) % Neut # (Auto) 15.0 H (1.8-7.0) K/uL Lymph # (Auto) 1.8 (1.0-4.3) K/uL [place] # (Auto) 0.4 (0.0-0.8) K/uL Eos # (Auto) 0.0 (0.0-0.7) K/uL Baso # (Auto) 0.1 (0.0-0.2) K/uL Neutrophils % (Manual) (50-75) % Lymphocytes % (Manual) (20-40) % Monocytes % (Manual) (0-10) % Platelet Estimate (NORMAL) Anisocytosis (manual) PT 14.4 H (9.7-12.2) SECONDS INR 1.3 APTT 34 (21-34) SECONDS D-Dimer, Quantitative (0-243) ng/mlDDU Puncture Site pCO2 (35-45) mm/Hg pO2 (80-100) mm/Hg HCO3 (21-28) mmol/L ABG pH (7.35-7.45) ABG Total CO2 (22-28) mmol/L ABG O2 Saturation (95-98) % ABG Base Excess (-2.0-3.0) mmol/L Jeremy Test ABG Potassium (3.6-5.2) mmol/L A-a O2 Difference mm/Hg Respiratory Index Glucose (75-110) mg/dl Lactate (0.7-2.1) mmol/L Vent Mode FiO2 % Inspiratory BiPAP Expiratory BiPAP Crit Value Called To Crit Value Called By Crit Value Read Back Blood Gas Notified Time Sodium (132-148) mmol/L Potassium (3.6-5.2) mmol/L Chloride (98-107) mmol/L Carbon Dioxide (22-30) mmol/L Anion Gap (10-20) BUN (9-20) mg/dL Creatinine (0.8-1.5) mg/dL Est GFR ( Amer) Est GFR (Non-Af Amer) POC Glucose (mg/dL) 205 H (65-110) mg/dL Random Glucose (75-110) mg/dL Calcium (8.6-10.4) mg/dl Phosphorus (2.5-4.5) mg/dL Magnesium (1.6-2.3) mg/dL Total Bilirubin (0.2-1.3) mg/dL AST (17-59) U/L ALT (21-72) U/L Alkaline Phosphatase (38-126) U/L Total Creatine Kinase (55-170) U/L CK-MB (Mass) (0.0-3.38) ng/mL Troponin I (0.00-0.120) ng/mL NT-Pro-B Natriuret Pep (0-900) pg/mL Total Protein (6.3-8.3) g/dL Albumin (3.5-5.0) g/dL Globulin (2.2-3.9) gm/dL Albumin/Globulin Ratio (1.0-2.1) Procalcitonin (0.19-0.49) NG/ML Arterial Blood Potassium (3.6-5.2) mmol/L Urine Color (YELLOW) Urine Clarity (Clear) Urine pH (5.0-8.0) Ur Specific [place] (1.003-1.030) Urine Protein (NEGATIVE) mg/dL Urine Glucose (UA) (Normal) mg/dL Urine Ketones (NEGATIVE) mg/dL Urine Blood (NEGATIVE) Urine Nitrate (NEGATIVE) Urine Bilirubin (NEGATIVE) Urine Urobilinogen (0.2-1.0) mg/dL Ur Leukocyte Esterase (Negative) Isreal/uL Urine WBC (Auto) (0-5) /hpf Urine RBC (Auto) (0-3) /hpf Ur Squamous Epith Cells (0-5) /hpf Urine Bacteria (<OCC) Laboratory Results - last 24 hr 04/24/18 04/24/18 04/24/18 03:58 04:02 04:02 WBC 17.3 H RBC 4.88 Hgb 12.9 Hct 40.3 MCV 82.6 MCH 26.5 L MCHC 32.1 L RDW 16.3 H Plt Count 424 H D MPV 8.2 Neut % (Auto) 86.7 H Lymph % (Auto) 10.2 L [place] % (Auto) 2.3 Eos % (Auto) 0.1 Baso % (Auto) 0.7 Neut # (Auto) 15.0 H Lymph # (Auto) 1.8 [place] # (Auto) 0.4 Eos # (Auto) 0.0 Baso # (Auto) 0.1 Neutrophils % (Manual) Lymphocytes % (Manual) Monocytes % (Manual) Platelet Estimate Anisocytosis (manual) PT 14.4 H INR 1.3 APTT 34 D-Dimer, Quantitative Puncture Site pCO2 pO2 HCO3 ABG pH ABG Total CO2 ABG O2 Saturation ABG Base Excess Jeremy Test ABG Potassium A-a O2 Difference Respiratory Index Glucose Lactate Vent Mode FiO2 Inspiratory BiPAP Expiratory BiPAP Crit Value Called To Crit Value Called By Crit Value Read Back Blood Gas Notified Time Sodium Potassium Chloride Carbon Dioxide Anion Gap BUN Creatinine Est GFR ( Amer) Est GFR (Non-Af Amer) POC Glucose (mg/dL) 205 H Random Glucose Calcium Phosphorus Magnesium Total Bilirubin AST ALT Alkaline Phosphatase Total Creatine Kinase CK-MB (Mass) Troponin I NT-Pro-B Natriuret Pep Total Protein Albumin Globulin Albumin/Globulin Ratio Procalcitonin Arterial Blood Potassium Urine Color Urine Clarity Urine pH Ur Specific [place] Urine Protein Urine Glucose (UA) Urine Ketones Urine Blood Urine Nitrate Urine Bilirubin Urine Urobilinogen Ur Leukocyte Esterase Urine WBC (Auto) Urine RBC (Auto) Ur Squamous Epith Cells Urine Bacteria 04/24/18 04/24/18 04/24/18 04:02 04:20 04:21 WBC RBC Hgb Hct MCV MCH MCHC RDW Plt Count MPV Neut % (Auto) Lymph % (Auto) [place] % (Auto) Eos % (Auto) Baso % (Auto) Neut # (Auto) Lymph # (Auto) [place] # (Auto) Eos # (Auto) Baso # (Auto) Neutrophils % (Manual) Lymphocytes % (Manual) Monocytes % (Manual) Platelet Estimate Anisocytosis (manual) PT INR APTT D-Dimer, Quantitative 6441 H Puncture Site Rra pCO2 59 H pO2 152 H HCO3 19.9 L ABG pH 7.19 L* ABG Total CO2 24.3 ABG O2 Saturation 98.4 H ABG Base Excess -6.5 L Jeremy Test P ABG Potassium 3.4 L A-a O2 Difference 487.0 Respiratory Index 3.2 Glucose 209 H Lactate 1.1 Vent Mode Bipap FiO2 100.0 Inspiratory BiPAP 20 Expiratory BiPAP 10 Crit Value Called To Rasheed parks md Crit Value Called By Jacoby bermudez mannequin mounter Crit Value Read Back Y Blood Gas Notified Time 428 Sodium 146 140.0 Potassium 4.3 Chloride 106 110.0 H Carbon Dioxide 23 Anion Gap 20 BUN 18 Creatinine 1.3 Est GFR ( Amer) > 60 Est GFR (Non-Af Amer) 55 POC Glucose (mg/dL) Random Glucose 214 H Calcium 8.8 Phosphorus Magnesium Total Bilirubin 0.5 AST 41 ALT 47 Alkaline Phosphatase 128 H D Total Creatine Kinase 196 H CK-MB (Mass) 7.59 H Troponin I 0.2870 H* NT-Pro-B Natriuret Pep 6510 H Total Protein 7.7 Albumin 3.8 Globulin 3.9 Albumin/Globulin Ratio 1.0 Procalcitonin Arterial Blood Potassium 3.4 L Urine Color Urine Clarity Urine pH Ur Specific [place] Urine Protein Urine Glucose (UA) Urine Ketones Urine Blood Urine Nitrate Urine Bilirubin Urine Urobilinogen Ur Leukocyte Esterase Urine WBC (Auto) Urine RBC (Auto) Ur Squamous Epith Cells Urine Bacteria 04/24/18 04/24/18 04/24/18 05:25 07:44 09:56 WBC RBC Hgb Hct MCV MCH MCHC RDW Plt Count MPV Neut % (Auto) Lymph % (Auto) [place] % (Auto) Eos % (Auto) Baso % (Auto) Neut # (Auto) Lymph # (Auto) [place] # (Auto) Eos # (Auto) Baso # (Auto) Neutrophils % (Manual) Lymphocytes % (Manual) Monocytes % (Manual) Platelet Estimate Anisocytosis (manual) PT INR APTT D-Dimer, Quantitative Puncture Site pCO2 pO2 HCO3 ABG pH ABG Total CO2 ABG O2 Saturation ABG Base Excess Jeremy Test ABG Potassium A-a O2 Difference Respiratory Index Glucose Lactate Vent Mode FiO2 Inspiratory BiPAP Expiratory BiPAP Crit Value Called To Crit Value Called By Crit Value Read Back Blood Gas Notified Time Sodium Potassium Chloride Carbon Dioxide Anion Gap BUN Creatinine Est GFR ( Amer) Est GFR (Non-Af Amer) POC Glucose (mg/dL) 153 H Random Glucose Calcium Phosphorus Magnesium Total Bilirubin AST ALT Alkaline Phosphatase Total Creatine Kinase CK-MB (Mass) Troponin I NT-Pro-B Natriuret Pep Total Protein Albumin Globulin Albumin/Globulin Ratio Procalcitonin 1.75 H Arterial Blood Potassium Urine Color Yellow Urine Clarity Clear Urine pH 5.0 Ur Specific [place] 1.008 Urine Protein 1+ H Urine Glucose (UA) Normal Urine Ketones Negative Urine Blood 2+ H Urine Nitrate Negative Urine Bilirubin Negative Urine Urobilinogen Normal Ur Leukocyte Esterase Neg Urine WBC (Auto) 3 Urine RBC (Auto) 10 H Ur Squamous Epith Cells 1 Urine Bacteria Rare 04/24/18 04/24/18 04/24/18 11:21 12:15 12:15 WBC 12.4 H RBC 4.80 Hgb 12.7 Hct 38.3 MCV 79.8 L D MCH 26.4 L MCHC 33.1 RDW 16.3 H Plt Count 435 H MPV 7.8 Neut % (Auto) 97.2 H Lymph % (Auto) 1.8 L [place] % (Auto) 0.7 Eos % (Auto) 0.0 Baso % (Auto) 0.3 Neut # (Auto) 12.1 H Lymph # (Auto) 0.2 L [place] # (Auto) 0.1 Eos # (Auto) 0.0 Baso # (Auto) 0.0 Neutrophils % (Manual) 96 H Lymphocytes % (Manual) 3 L Monocytes % (Manual) 1 Platelet Estimate Normal Anisocytosis (manual) Slight PT INR APTT D-Dimer, Quantitative Puncture Site pCO2 pO2 HCO3 ABG pH ABG Total CO2 ABG O2 Saturation ABG Base Excess Jeremy Test ABG Potassium A-a O2 Difference Respiratory Index Glucose Lactate Vent Mode FiO2 Inspiratory BiPAP Expiratory BiPAP Crit Value Called To Crit Value Called By Crit Value Read Back Blood Gas Notified Time Sodium 142 Potassium 4.3 Chloride 101 Carbon Dioxide 26 Anion Gap 18 BUN 21 H Creatinine 1.2 Est GFR ( Amer) > 60 Est GFR (Non-Af Amer) > 60 POC Glucose (mg/dL) 204 H Random Glucose 210 H Calcium 8.6 Phosphorus 3.6 Magnesium 1.9 Total Bilirubin 0.6 AST 214 H D ALT 53 Alkaline Phosphatase 127 H Total Creatine Kinase 1011 H CK-MB (Mass) 88.5 H Troponin I 15.9000 H* NT-Pro-B Natriuret Pep Total Protein 7.3 Albumin 3.7 Globulin 3.6 Albumin/Globulin Ratio 1.0 Procalcitonin Arterial Blood Potassium Urine Color Urine Clarity Urine pH Ur Specific [place] Urine Protein Urine Glucose (UA) Urine Ketones Urine Blood Urine Nitrate Urine Bilirubin Urine Urobilinogen Ur Leukocyte Esterase Urine WBC (Auto) Urine RBC (Auto) Ur Squamous Epith Cells Urine Bacteria EKG/Cardiology Studies: Cardiology / EKG Studies 04/24/18 03:55 ELECTROCARDIOGRAM Stat Comment: Mode Of Transportation: BED Reason For Exam: cp bed 6 04/24/18 05:15 EKG [ELECTROCARDIOGRAM] Stat Comment: Mode Of Transportation: PORTABLE Reason For Exam: SOB/ChestPain 04/24/18 07:00 EKG [ELECTROCARDIOGRAM] Routine Comment: Mode Of Transportation: PORTABLE Reason For Exam: SOB/Chest pain 04/24/18 12:00 ELECTROCARDIOGRAM Q8H Comment: Mode Of Transportation: Reason For Exam: chest pain 04/24/18 20:00 ELECTROCARDIOGRAM Q8H Comment: Mode Of Transportation: Reason For Exam: chest pain Critical Care Progress Note - Nutrition Nutrition: Nutrition Category Date Time Status Heart Healthy Diet [DIET] Diets 04/24/18 Breakfast Active Assessment/Plan - Assessment and Plan (Free Text) Plan: Patient seen and examined at bedside. Patient with h/o CAD, with [place] [facility] [place] Coronary anatomy unknown. Patient [facility] to [facility] with dyspnea , dx with hypertensive emergency and ACS (+). Patient noted he as non-compliant with antiplatelet therapy and has been smoking cigarettes. -ACS: restart antiplatelets, IV heparin and av mili eloisa and nitro ggt to keep chest pain free, lasix to help decrease right heart pressure. ACEI for suspect systolic heart failure, echo last reveals EF ~50% -pulmonary congestion: continue negative balance -?aspiration/consolidation left lower lobe: empirically start abx, procalcitonine pending, obtain sputum culture -dvt ppx heparin -pud ppx ppi - Date & Time Date: 04/24/18 Time: 13:55
[2018-04-24] MEDS ORDERED: Albuterol 0.083% Inhal Sol (2.5 mg/3 mL) UD INH SCH (08:00)
[2018-04-24] MEDS: Pantoprazole 40 mg EC Tab PO SCH (09:04)
[2018-04-24] MEDS: Albuterol-Ipratrop 3 mg / 0.5 (3 ml) UD INH SCH ×4 (09:13→20:25)
[2018-04-24] MEDS ORDERED: Enoxaparin 40 mg Syringe SC SCH (10:00)
[2018-04-24] MEDS ORDERED: Metoprolol Succinate 50 mg XL Tab PO SCH (10:00)
[2018-04-24] MEDS: Nitroglycerin 50mg in D5W 50 MG/250 ML BOTTLE IV SCH (11:07)
[2018-04-24] MEDS: MethylPREDNISolone 40 mg Vial IVP SCH ×3 (11:07→22:11)
[2018-04-24] MEDS: Piperacill/Tazo 3.375gm in Dex 3.375 GM/50 ML BAG IVPB SCH ×3 (11:14→22:11)
[2018-04-24] MEDS: Vancomycin 1 gm/NS 200 ml 1 GM/200 ML BAG IVPB SCH (11:15)
[2018-04-24] MEDS: (Novolin R) Insulin Human Regular 100 units/ml vial SC SCH ×3 (11:38→21:28)
[2018-04-24 12:22] LABS: BASO % 0.3 % (0.0-2.0); HEMOGLOBIN 12.7 g/dL (12.0-18.0); LYMPH # 0.2 K/uL (1.0-4.3); LYMPH % 1.8 % (20.0-40.0); MEAN CORPUSCULAR HEMOGLOBIN 26.4 pg (27.0-31.0); MEAN CORPUSCULAR HGB CONC 33.1 g/dL (33.0-37.0); MEAN PLATELET VOLUME 7.8 fL (7.2-11.7); MONO # 0.1 K/uL (0.0-0.8); MONO % 0.7 % (0.0-10.0); NEUT # 12.1 K/uL (1.8-7.0); NEUT % 97.2 % (50.0-75.0); PLATELET COUNT 435 K/uL (130-400); RED CELL DISTRIBUTION WIDTH 16.3 % (11.5-14.5); WHITE BLOOD COUNT 12.4 K/uL (4.8-10.8)
[2018-04-24 12:28] LABS: MEAN CELL VOLUME 79.8 fL (80.0-94.0)
[2018-04-24 12:36] LABS: ALBUMIN 3.7 g/dL (3.5-5.0); ALT/SGPT 53 U/L (21-72); AST/SGOT 214 U/L (17-59); BLOOD UREA NITROGEN 21 mg/dL (9-20); CALCIUM 8.6 mg/dl (8.6-10.4); GFR AFRICAN-AMERICAN > 60; GFR NON-AFRICAN AMERICAN > 60
[2018-04-24 12:51] LABS: LYMPHOCYTE 3 % (20-40); MONOCYTE 1 % (0-10); NEUTROPHIL 96 % (50-75); TOTAL CELLS COUNTED 100
[2018-04-24 12:52] LABS: ANISOCYTOSIS SLIGHT; PLATELET ESTIMATE NORMAL (NORMAL)
[2018-04-24 13:15] LABS: CK-MB 88.5 ng/mL (0.0-3.38)
[2018-04-24] MEDS: Heparin25000 units/250ml 1/2NS 25,000 UNITS/250 ML BAG IV PRN (14:35)
--- NOTE | 2018-04-24 17:01 | RAD ---
HISTORY: r/o infiltrate bed 6 COMPARISON: 04/06/2018. FINDINGS: LUNGS: There is moderate pulmonary venous congestion. There is airspace disease in the lower lobes. PLEURA: Interval development of moderate right and large left pleural effusions. No pneumothorax apparent. CARDIOVASCULAR: Normal. OSSEOUS STRUCTURES: No significant abnormalities. VISUALIZED UPPER ABDOMEN: Normal. OTHER FINDINGS: None. IMPRESSION: Moderate right and large left pleural effusions. Underlying atelectasis/ pneumonia cannot be excluded.
--- NOTE | 2018-04-24 17:22 | RAD ---
HISTORY: eval pulm edema COMPARISON: 04/24/2018 at 4:10 a.m.. FINDINGS: LUNGS: Again seen is moderate pulmonary venous congestion. There is persistent haziness in right infrahilar and left perihilar region. PLEURA: No change in moderate right and large left pleural effusions, no pneumothorax apparent. CARDIOVASCULAR: The cardiomediastinal silhouette is stable. OSSEOUS STRUCTURES: No significant abnormalities. VISUALIZED UPPER ABDOMEN: Normal. OTHER FINDINGS: None. IMPRESSION: No change in moderate right and large left pleural effusions. Underlying compressive atelectasis is a possibility. Suspect alveolar pulmonary edema, worse on the left. No significant interval change.
[2018-04-24 20:24] LABS: ALBUMIN 3.4 g/dL (3.5-5.0); ALT/SGPT 55 U/L (21-72); AST/SGOT 269 U/L (17-59); BLOOD UREA NITROGEN 23 mg/dL (9-20); CALCIUM 8.6 mg/dl (8.6-10.4); GFR AFRICAN-AMERICAN > 60; GFR NON-AFRICAN AMERICAN 55
[2018-04-24 20:39] LABS: CK-MB 76.7 ng/mL (0.0-3.38)
--- NOTE | 2018-04-24 22:48 | HP ---
HISTORY OF PRESENT ILLNESS: A 67-year-old gentleman who was brought in with a history of chest discomfort and shortness of breath. The patient was seen in the ER and subsequently admitted. His EKG had LVH with diffuse ST-T changes. Left axis deviation. He also has mild CKD. His blood pressure was 220/100. The patient was recently seen in the office and his blood pressure was 160/90. Medications were adjusted and Norvasc was added 10 mg once a day. His compliant has been poor. At home, he is on metoprolol succinate 50 mg p.o. 1 a day, Lasix and valsartan. He was on valsartan 320 mg p.o. once a day. On and off, the patient had not been taking medication. His last creatinine was about 1.7. The patient was admitted about 2 weeks ago with chest pain and was transferred to [facility] where he had a 2-vessel lesion and circumflex was stented. He also had a critical lesion in the RCA, for which he was supposed to go back . PERSONAL HISTORY: One pack per day smoker, also drinks moderate amount of alcohol everyday. ALLERGIES: DENIED. FAMILY HISTORY: Negative for premature coronary artery disease, but positive for hypertension. PAST MEDICAL HISTORY: Essentially unremarkable. PAST SURGICAL HISTORY: No surgeries. CURRENT MEDICATIONS: At home include amlodipine 10 mg p.o. once a day, Lipitor 40 mg p.o. once a day, Brilinta 90 b.i.d., baby aspirin 1 a day, Protonix 40 mg p.o. 1 a day, Toprol-XL 50 mg 1 a day and Diovan 320. REVIEW OF SYSTEMS: Generalized weakness is noted. No fever. No chills. Nonproductive cough. No visual disturbances. Continues to have shortness of breath on exertion. After the PTCA of the circumflex has had no chest pains. No hematemesis, no melena. No urinary complaints. No hematuria. No TIAs, no CVAs. No peptic ulcer disease. No history of depression. PHYSICAL EXAMINATION: GENERAL: Shows an elderly -[place] gentleman, who is conscious, alert, on BiPAP, in no acute distress. VITAL SIGNS: Blood pressure is 160/100 heart rate of 88, respiratory rate of 24, afebrile, sinus rhythm on the telemetry. HEENT: Head is normocephalic. Eyes, no pallor, no icterus. NECK: Supple. LUNGS: Shows basilar rales. CARDIAC: PMI is not localized. S1 and S2 is distant. Grade 2/6 early systolic murmur in mitral and aortic area. Prominent S4 gallop. ABDOMEN: Soft. Nontender. EXTREMITIES: 1+ pitting edema, more so on the left ankle. Distal pulses are intact. LABORATORY DATA: EKG as mentioned above. CBC and chemistries were noted. ASSESSMENT: A 67-year-old gentleman with a history of uncontrolled hypertension, poor compliance, recent non-ST elevation myocardial infarction has presented with hypertensive emergencies, chronic obstructive pulmonary disease. PLAN: Plan at this point is to continue with control of the blood pressure. Pulmonary consult with Dr. Jarrett for followup. We will transfer for repeat PTCA of the RCA once stable. Care of plan was explained to the patient and was discussed with Dr. Lam. I thank you kindly. Mohan Latham MD
[2018-04-25] MEDS: Albuterol-Ipratrop 3 mg / 0.5 (3 ml) UD INH SCH ×5 (00:30→19:00)
[2018-04-25] MEDS: Piperacill/Tazo 3.375gm in Dex 3.375 GM/50 ML BAG IVPB SCH ×2 (04:35→10:24)
[2018-04-25] MEDS: MethylPREDNISolone 40 mg Vial IVP SCH (04:36)
[2018-04-25] MEDS: Nitroglycerin 50mg in D5W 50 MG/250 ML BOTTLE IV SCH ×2 (05:20→11:36)
[2018-04-25 05:32] LABS: ABG ALLEN TEST POS; ARTERIAL BLOOD GAS HCO3 29.3 mmol/L (21-28); ARTERIAL BLOOD GAS HEMOGLOBIN 11.9 g/dL (11.7-17.4); ARTERIAL BLOOD GAS O2 SAT 93.5 % (95-98); ARTERIAL BLOOD GAS PCO2 34 mm/Hg (35-45); ARTERIAL BLOOD GAS PH 7.53 (7.35-7.45); ARTERIAL BLOOD GAS PO2 60 mm/Hg (80-100); ARTERIAL BLOOD GAS TCO2 29.4 mmol/L (22-28)
[2018-04-25 06:50] LABS: BASO % 0.2 % (0.0-2.0); HEMOGLOBIN 11.2 g/dL (12.0-18.0); LYMPH # 0.6 K/uL (1.0-4.3); LYMPH % 3.8 % (20.0-40.0); MEAN CELL VOLUME 78.8 fL (80.0-94.0); MEAN CORPUSCULAR HEMOGLOBIN 25.7 pg (27.0-31.0); MEAN CORPUSCULAR HGB CONC 32.6 g/dL (33.0-37.0); MEAN PLATELET VOLUME 7.7 fL (7.2-11.7); MONO # 0.5 K/uL (0.0-0.8); NEUT # 15.1 K/uL (1.8-7.0); PLATELET COUNT 381 K/uL (130-400); RBC 4.35 Mil/uL (4.40-5.90); RED CELL DISTRIBUTION WIDTH 16.1 % (11.5-14.5); WHITE BLOOD COUNT 16.2 K/uL (4.8-10.8)
[2018-04-25 07:22] LABS: ALBUMIN 3.2 g/dL (3.5-5.0); ALT/SGPT 60 U/L (21-72); AST/SGOT 285 U/L (17-59); BLOOD UREA NITROGEN 22 mg/dL (9-20); CALCIUM 8.5 mg/dl (8.6-10.4); GFR AFRICAN-AMERICAN > 60; GFR NON-AFRICAN AMERICAN 55
[2018-04-25] MEDS ORDERED: Potassium Chloride 20 mEq/15 ml LIQ UD PO SCH (07:45)
--- NOTE | 2018-04-25 07:58 | CP.PCM.CON ---
History of Present Illness - History of Present Illness History of Present Illness: INTERVENTIONAL CARDIOLOGY CONSULT I was asked to see patient by Dr Latham. Patient is a 67 year old male with a PMH HTN, hypercholesterolemia, CAD s/p stent of the left circumflex artery who presents with acute dyspnea. Patient was admitted a few weeks ago with NSTEMI, and underwent cardiac cath revealing 2 vessel CAD. He is s/p stent of the left circumflex artery. He was started on ASA 81 mg daily, brilinta 90mg BID. Patient was given extensive education about the importance of medication compliance and maintenance of dual antiplatelet therapy. The risk of stent thrombosis associated with premature cessation of dual antiplatelet therapy was discussed. The patient admits he has not taken Brilinta for one week. He presented with pulmonary edema. He ruled in for myocardial infarction. He is currently in the ICU on BiPAP. Review of Systems - Constitutional Constitutional: absent: As Per HPI, Anorexia, Chills, Daytime Sleepiness, Excessive Sweating, Fatigue, Fever, Frequent Falls, Headache, Increased Appetite , Lethargy, Malaise, Night Sweats, Snoring, Sleep Apnea, Weight Gain, Weight Loss, Weakness, Other - EENT Eyes: absent: As Per HPI, Blind Spots, Blurred Vision, Change in Vision, Decreased Night Vision, Diplopia, Discharge, Dry Eye, Exophthalmos, Floaters, Irritation, Itchy Eyes, Loss of Peripheral Vision, Pain, Photophobia, Requires Corrective Lenses, Sees Flashes, Spots in Vision, Tunnel Vision, Other Visual Disturbances, Loss of Vision, Other Ears: absent: As Per HPI, Decreased Hearing, Ear Discharge, Ear Pain, Tinnitus, Abnormal Hearing, Disequilibrium, Dizziness, Other Nose/Mouth/Throat: absent: As Per HPI, Epistaxis, Nasal Congestion, Nasal Discharge, Nasal Obstruction, Nasal Trauma, Nose Pain, Post Nasal Drip, Sinus Pain, Sinus Pressure, Bleeding Gums, Change in Voice, Dental Pain, Dry Mouth, Dysphagia, Halitosis, Hoarsness, Lip Swelling, Mouth Lesions, Mouth Pain, Odynophagia, Sore Throat, Throat Swelling, Tongue Swelling, Facial Pain, Neck Pain, Neck Mass, Other - Cardiovascular Cardiovascular: Dyspnea - Respiratory Respiratory: Dyspnea - Gastrointestinal Gastrointestinal: absent: As Per HPI, Abdominal Pain, Belching, Bloating, Change in Bowel Habits, Change in Stool Character, Coffee Ground Emesis, Constipation, Cramping, Diarrhea, Dyspepsia, Dysphagia, Early Satiety, Excessive Flatus, Fecal Incontinence, Heartburn, Hematemesis, Hematochezia, Loose Stools, Melena, Nausea, Odynophagia, Temesmus, Vomiting, Other - Genitourinary Genitourinary: absent: As Per HPI, Change in Urinary Stream, Difficulty Urinating, Dysuria, Flank Pain, Hematuria, Pyuria, Nocturia, Urinary Incontinence, Urinary Frequency, Urinary Hesitance, Urinary Urgency, Voiding Freq/Small Amts, Freq UTI, Hx Renal/Bladder Calculi, Hx /Renal Surgery, Bladder Distension, Other - Musculoskeletal Musculoskeletal: absent: As Per HPI, Abnormal Gait, Arthralgias, Atrophy, Back Pain, Deformity, Joint Swelling, Limited Range of Motion, Loss of Height, Muscle Cramps, Muscle Weakness, Myalgias, Neck Pain, Numbness, Radiating Pain into Limb, Stiffness, Tingling, Other - Integumentary Integumentary: absent: As Per HPI, Acne, Alopecia, Bleeding Lesions, Change in Hair, Change in Nails, Change in Pigmentation, Changing Lesions, Dry Skin, Erythema, Furuncle, Hirsutism, Lesions, New Lesions, Non-Healing Lesions, Photosensitivity, Pruritus, Rash, Skin Pain, Skin Ulcer, Sores, Striae, Swelling , Unusual Bruising, Wounds, Jaundice, Other - Neurological Neurological: absent: As Per HPI, Abnormal Gait, Abnormal Hearing, Abnormal Movements, Abnormal Speech, Behavioral Changes, Burning Sensations, Confusion, Convulsions, Disequilibrium, Dizziness, Numbness, Focal Weakness, Frequent Falls , Headaches, Lack of Coordination, Loss of Vision, Memory Loss, Paresthesias, Radicular Pain, Restless Legs, Sensory Deficit, Syncope, Tingling, Tremor, Vertigo, Weakness, Other Visual Disturbances, Other - Psychiatric Psychiatric: absent: As Per HPI, Abnormal Sleep Pattern, Anhedonia, Anxiety, Auditory Hallucinations, Behavioral Changes, Change in Appetite, Change in Libido, Confusion, Depression, Difficulty Concentrating, Hallucinations, Homicidal Ideation, Hopelessness, Irritability, Memory Loss, Mood Swings, Panic Attacks, Paranoia, Suicidal Ideation, Visual Hallucinations, Tactile Hallucinations, Other - Endocrine Endocrine: absent: As Per HPI, Change in Body Appearance, Change in Libido, Cold Intolorance, Deepening of Voice, Excessive Sweating, Fatigue, Flushing, Heat Intolorance, Increase in Ring/Shoe/Hat Size, Palpitations, Polydipsia, Polyphagia, Polyuria, Other - Hematologic/Lymphatic Hematologic: absent: As Per HPI, Easy Bleeding, Easy Bruising, Lymphadenopathy, Other Past Patient History - Past Medical History & Family History Past Medical History?: Yes - Past Social History Smoking Status: Never Smoked - CARDIAC Hx Cardiac Disorders: Yes Hx Hypertension: Yes - PULMONARY Hx Respiratory Disorders: No - NEUROLOGICAL Hx Neurological Disorder: No - HEENT Hx HEENT Problems: No - RENAL Hx Chronic Kidney Disease: No - ENDOCRINE/METABOLIC Hx Endocrine Disorders: No - HEMATOLOGICAL/ONCOLOGICAL Hx Blood Disorders: No - INTEGUMENTARY Hx Dermatological Problems: No - MUSCULOSKELETAL/RHEUMATOLOGICAL Hx Musculoskeletal Disorders: No Hx Falls: No - GASTROINTESTINAL Hx Gastrointestinal Disorders: No - GENITOURINARY/GYNECOLOGICAL Hx Genitourinary Disorders: No - PSYCHIATRIC Hx Psychophysiologic Disorder: No Hx Substance Use: No - SURGICAL HISTORY Hx Surgeries: Yes Other/Comment: stent placement 2 wks ago - ANESTHESIA Hx Anesthesia: Yes Hx Anesthesia Reactions: No Hx Malignant Hyperthermia: No Has any member of the family had a problem w/ anesthesia?: No Meds Allergies/Adverse Reactions: Allergies Allergy/AdvReac Type Severity Reaction Status Date / Time No Known Allergies Allergy Verified 04/06/18 17:12 - Medications Medications: Current Medications Albuterol/Ipratropium (Duoneb 3 Mg/0.5 Mg (3 Ml) Ud) 3 ml INH RQ4 [facility] Last Admin: 04/25/18 03:50 Dose: 3 ml Amlodipine Besylate (Norvasc) 10 mg PO DAILY [facility] Last Admin: 04/24/18 12:52 Dose: Not Given Aspirin (Ecotrin) 81 mg PO DAILY [facility] Last Admin: 04/24/18 09:04 Dose: 81 mg Furosemide (Lasix) 40 mg IVP Q12 [facility]Y Last Admin: 04/24/18 21:20 Dose: 40 mg Nitroglycerin/Dextrose (Nitroglycerin 50 Mg/250 Ml D5w) 50 mg in 250 mls @ 7.5 mls/hr IV .Q24H ALY; 25 MCG/MIN PRN Reason: Protocol Last Admin: 04/25/18 05:20 Dose: 70 mcg/min, 21 mls/hr Piperacillin Sod/Tazobactam Sod (Zosyn 3.375 Gm Iv Premix) 3.375 gm in 50 mls @ 100 mls/hr IVPB Q6H ALY PRN Reason: Protocol Last Admin: 04/25/18 04:35 Dose: 100 mls/hr Vancomycin/Sodium Chloride (Vancomycin 1 Gm/Ns 200 Ml) 1 gm in 200 mls @ 133 mls/hr IVPB DAILY@1115 ALY PRN Reason: Protocol Stop: 04/29/18 11:16 Last Admin: 04/24/18 11:15 Dose: 133 mls/hr Heparin Sodium/Sodium Chloride (Heparin 79833 Units/250ml 1/2 Normal Saline) 25 ,000 units in 250 mls @ 11.43 mls/hr IV .[id number] PRN; Protocol; 12 UNITS/KG/HR PRN Reason: PROTOCOL Last Admin: 04/24/18 14:35 Dose: 12 units/kg/hr, 11.43 mls/hr Potassium Chloride (Potassium Chloride 10 Meq/100 Ml) 10 meq in 100 mls @ 100 mls/hr IVPB Q1H [facility] Stop: 04/25/18 11:44 Insulin Human Regular (Novolin R) 0 unit SC ACHS ALY PRN Reason: Protocol Last Admin: 04/24/18 21:28 Dose: Not Given Losartan Potassium (Cozaar) 100 mg PO DAILY [facility] Last Admin: 04/24/18 09:04 Dose: 100 mg Methylprednisolone (Solu-Medrol) 40 mg IVP Q6H [facility] Last Admin: 04/25/18 04:36 Dose: 40 mg Metoprolol Succinate (Toprol Xl) 50 mg PO DAILY [facility] Last Admin: 04/24/18 09:04 Dose: 50 mg Pantoprazole Sodium (Protonix Ec Tab) 40 mg PO DAILY [facility] Last Admin: 04/24/18 09:04 Dose: 40 mg Potassium Chloride (Potassium Chloride Oral Soln) 40 meq PO Q6H [facility] Stop: 04/25/18 19:46 Ticagrelor (Brilinta) 90 mg PO BID [facility] Last Admin: 04/24/18 18:05 Dose: 90 mg Physical Exam - Constitutional Appears: Non-toxic - Head Exam Head Exam: NORMAL INSPECTION - Eye Exam Eye Exam: Normal appearance - ENT Exam ENT Exam: Mucous Membranes Moist - Neck Exam Neck exam: Positive for: Full Rom - Respiratory Exam Respiratory Exam: Decreased Breath Sounds - Cardiovascular Exam Cardiovascular Exam: REGULAR RHYTHM - GI/Abdominal Exam GI & Abdominal Exam: Normal Bowel Sounds - Rectal Exam Rectal Exam: Deferred - Extremities Exam Extremities exam: Positive for: full ROM. Negative for: pedal edema - Back Exam Back exam: NORMAL INSPECTION - Neurological Exam Neurological exam: Alert, Oriented x3 - Psychiatric Exam Psychiatric exam: Normal Affect - Skin Skin Exam: Normal Color Results - Vital Signs Recent Vital Signs: Last Vital Signs Temp 97.9 F 04/25/18 04:00 Pulse 71 04/25/18 07:00 Resp 14 04/25/18 07:00 BP 138/87 04/25/18 06:46 Pulse Ox 99 04/25/18 07:00 - Labs Result Diagrams: 04/25/18 06:41 04/25/18 06:35 Labs: Laboratory Results - last 24 hr 04/24/18 04/24/18 04/24/18 07:44 09:56 11:21 WBC RBC Hgb Hct MCV MCH MCHC RDW Plt Count MPV Neut % (Auto) Lymph % (Auto) Montgomery % (Auto) Eos % (Auto) Baso % (Auto) Neut # (Auto) Lymph # (Auto) Montgomery # (Auto) Eos # (Auto) Baso # (Auto) Neutrophils % (Manual) Lymphocytes % (Manual) Monocytes % (Manual) Platelet Estimate Anisocytosis (manual) APTT Puncture Site pCO2 pO2 HCO3 ABG pH ABG Total CO2 ABG O2 Saturation ABG Base Excess ABG Hemoglobin ABG Carboxyhemoglobin POC ABG HHb (Measured) ABG Methemoglobin Jeremy Test A-a O2 Difference Respiratory Index Hgb O2 Saturation Vent Mode FiO2 Inspiratory BiPAP Expiratory BiPAP Sodium Potassium Chloride Carbon Dioxide Anion Gap BUN Creatinine Est GFR ( Amer) Est GFR (Non-Af Amer) POC Glucose (mg/dL) 153 H 204 H Random Glucose Calcium Phosphorus Magnesium Total Bilirubin AST ALT Alkaline Phosphatase Total Creatine Kinase CK-MB (Mass) Troponin I Total Protein Albumin Globulin Albumin/Globulin Ratio Procalcitonin 1.75 H 04/24/18 04/24/18 04/24/18 12:15 12:15 16:12 WBC 12.4 H RBC 4.80 Hgb 12.7 Hct 38.3 MCV 79.8 L D MCH 26.4 L MCHC 33.1 RDW 16.3 H Plt Count 435 H MPV 7.8 Neut % (Auto) 97.2 H Lymph % (Auto) 1.8 L Montgomery % (Auto) 0.7 Eos % (Auto) 0.0 Baso % (Auto) 0.3 Neut # (Auto) 12.1 H Lymph # (Auto) 0.2 L Montgomery # (Auto) 0.1 Eos # (Auto) 0.0 Baso # (Auto) 0.0 Neutrophils % (Manual) 96 H Lymphocytes % (Manual) 3 L Monocytes % (Manual) 1 Platelet Estimate Normal Anisocytosis (manual) Slight APTT Puncture Site pCO2 pO2 HCO3 ABG pH ABG Total CO2 ABG O2 Saturation ABG Base Excess ABG Hemoglobin ABG Carboxyhemoglobin POC ABG HHb (Measured) ABG Methemoglobin Jeremy Test A-a O2 Difference Respiratory Index Hgb O2 Saturation Vent Mode FiO2 Inspiratory BiPAP Expiratory BiPAP Sodium 142 Potassium 4.3 Chloride 101 Carbon Dioxide 26 Anion Gap 18 BUN 21 H Creatinine 1.2 Est GFR ( Amer) > 60 Est GFR (Non-Af Amer) > 60 POC Glucose (mg/dL) 208 H Random Glucose 210 H Calcium 8.6 Phosphorus 3.6 Magnesium 1.9 Total Bilirubin 0.6 AST 214 H D ALT 53 Alkaline Phosphatase 127 H Total Creatine Kinase 1011 H CK-MB (Mass) 88.5 H Troponin I 15.9000 H* Total Protein 7.3 Albumin 3.7 Globulin 3.6 Albumin/Globulin Ratio 1.0 Procalcitonin 04/24/18 04/24/18 04/24/18 20:05 20:05 21:25 WBC RBC Hgb Hct MCV MCH MCHC RDW Plt Count MPV Neut % (Auto) Lymph % (Auto) Montgomery % (Auto) Eos % (Auto) Baso % (Auto) Neut # (Auto) Lymph # (Auto) Montgomery # (Auto) Eos # (Auto) Baso # (Auto) Neutrophils % (Manual) Lymphocytes % (Manual) Monocytes % (Manual) Platelet Estimate Anisocytosis (manual) APTT 50 H D Puncture Site pCO2 pO2 HCO3 ABG pH ABG Total CO2 ABG O2 Saturation ABG Base Excess ABG Hemoglobin ABG Carboxyhemoglobin POC ABG HHb (Measured) ABG Methemoglobin Jeremy Test A-a O2 Difference Respiratory Index Hgb O2 Saturation Vent Mode FiO2 Inspiratory BiPAP Expiratory BiPAP Sodium 141 Potassium 4.0 Chloride 101 Carbon Dioxide 28 Anion Gap 17 BUN 23 H Creatinine 1.3 Est GFR ( Amer) > 60 Est GFR (Non-Af Amer) 55 POC Glucose (mg/dL) 172 H Random Glucose 175 H Calcium 8.6 Phosphorus 3.3 Magnesium 2.0 Total Bilirubin 0.4 AST 269 H D ALT 55 Alkaline Phosphatase 113 Total Creatine Kinase 1038 H CK-MB (Mass) 76.7 H Troponin I 28.8000 H* Total Protein 6.7 Albumin 3.4 L Globulin 3.3 Albumin/Globulin Ratio 1.0 Procalcitonin 04/25/18 04/25/18 04/25/18 02:06 05:23 06:35 WBC RBC Hgb Hct MCV MCH MCHC RDW Plt Count MPV Neut % (Auto) Lymph % (Auto) Montgomery % (Auto) Eos % (Auto) Baso % (Auto) Neut # (Auto) Lymph # (Auto) Montgomery # (Auto) Eos # (Auto) Baso # (Auto) Neutrophils % (Manual) Lymphocytes % (Manual) Monocytes % (Manual) Platelet Estimate Anisocytosis (manual) APTT 56 H D Puncture Site Rr pCO2 34 L pO2 60 L HCO3 29.3 H ABG pH 7.53 H ABG Total CO2 29.4 H ABG O2 Saturation 93.5 L ABG Base Excess 5.7 H ABG Hemoglobin 11.9 ABG Carboxyhemoglobin 1.1 POC ABG HHb (Measured) 6.4 H ABG Methemoglobin 0.8 Jeremy Test Pos A-a O2 Difference 183.0 Respiratory Index 3.1 Hgb O2 Saturation 91.8 L Vent Mode Bipap FiO2 40.0 Inspiratory BiPAP 15 Expiratory BiPAP 5 Sodium 141 Potassium 3.3 L Chloride 102 Carbon Dioxide 29 Anion Gap 13 BUN 22 H Creatinine 1.3 Est GFR ( Amer) > 60 Est GFR (Non-Af Amer) 55 POC Glucose (mg/dL) Random Glucose 169 H Calcium 8.5 L Phosphorus 3.2 Magnesium 2.0 Total Bilirubin 0.5 AST 285 H ALT 60 Alkaline Phosphatase 102 Total Creatine Kinase CK-MB (Mass) Troponin I Total Protein 6.4 Albumin 3.2 L Globulin 3.2 Albumin/Globulin Ratio 1.0 Procalcitonin 04/25/18 06:41 WBC 16.2 H RBC 4.35 L Hgb 11.2 L Hct 34.3 L MCV 78.8 L MCH 25.7 L MCHC 32.6 L RDW 16.1 H Plt Count 381 MPV 7.7 Neut % (Auto) 93.0 H Lymph % (Auto) 3.8 L Montgomery % (Auto) 3.0 Eos % (Auto) 0.0 Baso % (Auto) 0.2 Neut # (Auto) 15.1 H Lymph # (Auto) 0.6 L Montgomery # (Auto) 0.5 Eos # (Auto) 0.0 Baso # (Auto) 0.0 Neutrophils % (Manual) Lymphocytes % (Manual) Monocytes % (Manual) Platelet Estimate Anisocytosis (manual) APTT Puncture Site pCO2 pO2 HCO3 ABG pH ABG Total CO2 ABG O2 Saturation ABG Base Excess ABG Hemoglobin ABG Carboxyhemoglobin POC ABG HHb (Measured) ABG Methemoglobin Jeremy Test A-a O2 Difference Respiratory Index Hgb O2 Saturation Vent Mode FiO2 Inspiratory BiPAP Expiratory BiPAP Sodium Potassium Chloride Carbon Dioxide Anion Gap BUN Creatinine Est GFR ( Amer) Est GFR (Non-Af Amer) POC Glucose (mg/dL) Random Glucose Calcium Phosphorus Magnesium Total Bilirubin AST ALT Alkaline Phosphatase Total Creatine Kinase CK-MB (Mass) Troponin I Total Protein Albumin Globulin Albumin/Globulin Ratio Procalcitonin - EKG Data EKG shows normal: Sinus rhythm Assessment & Plan (1) NSTEMI (non-ST elevated myocardial infarction) Assessment and Plan: patient ayah had stent thrombosis due to medication compliance (stopped Brilinta). recommend heparin drip now. ASA, Brilinta. will plan for cardiac cath in the next 48 hrs once respiratory status improves. will transfer for PCI Status: Acute (2) HTN (hypertension) Assessment and Plan: aggressive medical therapy Status: Acute (3) CAD (coronary artery disease) Assessment and Plan: Camryn discussed the importance of ASA/Brilinta therapy Status: Acute
[2018-04-25 08:18] LABS: NEUTROPHIL 94 % (50-75); TOTAL CELLS COUNTED 100
[2018-04-25 08:19] LABS: ANISOCYTOSIS SLIGHT; LYMPHOCYTE 4 % (20-40); MONOCYTE 2 % (0-10); PLATELET ESTIMATE NORMAL (NORMAL); POIKILOCYTOSIS SLIGHT
[2018-04-25 08:20] LABS: LARGE PLATELETS PRESENT
[2018-04-25 08:21] LABS: HYPOCHROMIC SLIGHT; OVALOCYTES SLIGHT; POLYCHROMIC SLIGHT; TEARDROP CELLS SLIGHT
--- NOTE | 2018-04-25 08:31 | CP.PCM.PN ---
Subjective - Date & Time of Evaluation Date of Evaluation: 04/25/18 Time of Evaluation: 08:27 - Subjective Subjective: Patient feeling better, less SOB, no diarrhea, no BM Objective - Vital Signs/Intake and Output Vital Signs (last 24 hours): Temp Pulse Resp BP Pulse Ox 97.9 F 84 14 138/87 99 04/25/18 04:00 04/25/18 08:09 04/25/18 07:00 04/25/18 06:46 04/25/18 07:00 Intake and Output: 04/25/18 04/25/18 06:59 18:59 Intake Total 845.4 32.4 Output Total 2160 100 Balance -1314.6 -67.6 - Medications Medications: Current Medications Albuterol/Ipratropium (Duoneb 3 Mg/0.5 Mg (3 Ml) Ud) 3 ml INH RQ4 [facility] Last Admin: 04/25/18 08:08 Dose: 3 ml Amlodipine Besylate (Norvasc) 10 mg PO DAILY [facility] Last Admin: 04/24/18 12:52 Dose: Not Given Aspirin (Ecotrin) 81 mg PO DAILY [facility] Last Admin: 04/24/18 09:04 Dose: 81 mg Furosemide (Lasix) 40 mg IVP Q12 [facility] Last Admin: 04/24/18 21:20 Dose: 40 mg Hydralazine HCl (Apresoline) 25 mg PO QID [facility] Nitroglycerin/Dextrose (Nitroglycerin 50 Mg/250 Ml D5w) 50 mg in 250 mls @ 7.5 mls/hr IV .Q24H ALY; 25 MCG/MIN PRN Reason: Protocol Last Admin: 04/25/18 05:20 Dose: 70 mcg/min, 21 mls/hr Piperacillin Sod/Tazobactam Sod (Zosyn 3.375 Gm Iv Premix) 3.375 gm in 50 mls @ 100 mls/hr IVPB Q6H [facility] PRN Reason: Protocol Last Admin: 04/25/18 04:35 Dose: 100 mls/hr Vancomycin/Sodium Chloride (Vancomycin 1 Gm/Ns 200 Ml) 1 gm in 200 mls @ 133 mls/hr IVPB DAILY@1115 ALY PRN Reason: Protocol Stop: 04/29/18 11:16 Last Admin: 04/24/18 11:15 Dose: 133 mls/hr Heparin Sodium/Sodium Chloride (Heparin 36321 Units/250ml 1/2 Normal Saline) 25 ,000 units in 250 mls @ 11.43 mls/hr IV .[id number] PRN; Protocol; 12 UNITS/KG/HR PRN Reason: PROTOCOL Last Admin: 04/24/18 14:35 Dose: 12 units/kg/hr, 11.43 mls/hr Potassium Chloride (Potassium Chloride 10 Meq/100 Ml) 10 meq in 100 mls @ 100 mls/hr IVPB Q1H [facility] Stop: 04/25/18 11:44 Last Admin: 04/25/18 08:04 Dose: 100 mls/hr Insulin Human Regular (Novolin R) 0 unit SC ACHS ALY PRN Reason: Protocol Last Admin: 04/24/18 21:28 Dose: Not Given Losartan Potassium (Cozaar) 100 mg PO DAILY [facility] Last Admin: 04/24/18 09:04 Dose: 100 mg Metoprolol Succinate (Toprol Xl) 150 mg PO DAILY [facility] Pantoprazole Sodium (Protonix Ec Tab) 40 mg PO DAILY [facility] Last Admin: 04/24/18 09:04 Dose: 40 mg Potassium Chloride (K-Dur 20 Meq Er Tab) 40 meq PO Q6H [facility] Stop: 04/25/18 14:31 Ticagrelor (Brilinta) 90 mg PO BID [facility] Last Admin: 04/24/18 18:05 Dose: 90 mg - Labs Labs: 04/25/18 06:41 04/25/18 06:35 PT 14.4 SECONDS (9.7-12.2) H 04/24/18 04:02 INR 1.3 04/24/18 04:02 APTT 56 SECONDS (21-34) H D 04/25/18 02:06 - Constitutional Appears: Non-toxic, No Acute Distress - Head Exam Head Exam: ATRAUMATIC, NORMAL INSPECTION, NORMOCEPHALIC - Eye Exam Eye Exam: EOMI - Respiratory Exam Respiratory Exam: Rales, NORMAL BREATHING PATTERN. absent: Wheezes - Cardiovascular Exam Cardiovascular Exam: REGULAR RHYTHM, +S1, +S2, +S4 - GI/Abdominal Exam GI & Abdominal Exam: Soft, Normal Bowel Sounds. absent: Tenderness, Diminished Bowel Sounds, Hypoactive Bowel Sounds - Extremities Exam Extremities Exam: Pedal Edema - Neurological Exam Neurological Exam: Alert, Awake, CN II-XII Intact, Oriented x3 Assessment and Plan - Assessment and Plan (Free Text) Assessment: ACute Hypertensive emergency with NSTEMI/Pulomnary congestion/edema: continue IV lasix for negative balance acute on CHronic systolic heart failure: continue lopressor, acei(losartan), norvasc 10 and add hydralazine, titrate off IV nitro (currently 70 mcg) -NSTEMI:continue DAPT, IV heparin, will need PCI when able to lay flat -Left lower lobe PNA: continue abx, obtain cultures, procalcitonin (+) -d/c bautista -OOB to chair -titrate off bi-pap to NC. Patient remasins hemodynamically stable. -d/w ICU nurse PT/OT -tolerating oral diet
--- NOTE | 2018-04-25 08:34 | RAD ---
HISTORY: pulmonary edema COMPARISON: 04/24/2018. FINDINGS: LUNGS: There is mild pulmonary venous congestion. There is persistent haziness in the lower lobes. PLEURA: Again seen are bilateral pleural effusions, moderate on the right and larger on the left, no pneumothorax apparent. CARDIOVASCULAR: The cardiomediastinal silhouette is stable. OSSEOUS STRUCTURES: No significant abnormalities. VISUALIZED UPPER ABDOMEN: Normal. OTHER FINDINGS: None. IMPRESSION: No change in moderate right and large left pleural effusions. Haziness in the lower lobes may represent alveolar edema versus layering effusions.
[2018-04-25] MEDS: (Novolin R) Insulin Human Regular 100 units/ml vial SC SCH ×4 (08:36→21:49)
[2018-04-25] MEDS: Potassium Chloride 20 mEq ER Tab PO SCH ×2 (08:36→13:50)
[2018-04-25] MEDS: Pantoprazole 40 mg EC Tab PO SCH (09:11)
[2018-04-25] MEDS: Metoprolol Succinate 50 mg XL Tab PO SCH (10:25)
[2018-04-25] MEDS: Heparin25000 units/250ml 1/2NS 25,000 UNITS/250 ML BAG IV PRN (11:54)
[2018-04-25] MEDS: Vancomycin 1 gm/NS 200 ml 1 GM/200 ML BAG IVPB SCH (11:59)
--- NOTE | 2018-04-25 16:39 | CP.PCM.PN ---
Subjective - Date & Time of Evaluation Date of Evaluation: 04/25/18 Time of Evaluation: 16:38 - Subjective Subjective: better.no cp.on o2 nasal canula.labs noted.off tridil. Objective - Vital Signs/Intake and Output Vital Signs (last 24 hours): Temp Pulse Resp BP Pulse Ox 97.6 F 86 23 134/86 97 04/25/18 16:00 04/25/18 16:00 04/25/18 16:00 04/25/18 14:34 04/25/18 16:00 Intake and Output: 04/25/18 04/25/18 06:59 18:59 Intake Total 845.4 1935.6 Output Total 2160 1925 Balance -1314.6 10.6 - Medications Medications: Current Medications Albuterol/Ipratropium (Duoneb 3 Mg/0.5 Mg (3 Ml) Ud) 3 ml INH Q6 [facility] Amlodipine Besylate (Norvasc) 10 mg PO DAILY [facility] Last Admin: 04/25/18 09:11 Dose: 10 mg Aspirin (Ecotrin) 81 mg PO DAILY [facility] Last Admin: 04/25/18 09:11 Dose: 81 mg Furosemide (Lasix) 40 mg IVP Q12 [facility] Last Admin: 04/25/18 09:12 Dose: 40 mg Hydralazine HCl (Apresoline) 25 mg PO QID [facility] Last Admin: 04/25/18 13:50 Dose: 25 mg Nitroglycerin/Dextrose (Nitroglycerin 50 Mg/250 Ml D5w) 50 mg in 250 mls @ 7.5 mls/hr IV .Q24H [facility]; 25 MCG/MIN PRN Reason: Protocol Last Titration: 04/25/18 12:01 Dose: 0 mcg/min, 0 mls/hr Heparin Sodium/Sodium Chloride (Heparin 26075 Units/250ml 1/2 Normal Saline) 25 ,000 units in 250 mls @ 11.43 mls/hr IV .[id number] PRN; Protocol; 12 UNITS/KG/HR PRN Reason: PROTOCOL Last Admin: 04/25/18 11:54 Dose: 12 units/kg/hr, 11.43 mls/hr Insulin Human Regular (Novolin R) 0 unit SC ACHS [facility] PRN Reason: Protocol Last Admin: 04/25/18 16:33 Dose: Not Given Losartan Potassium (Cozaar) 100 mg PO DAILY [facility] Last Admin: 04/25/18 10:25 Dose: 100 mg Metoprolol Succinate (Toprol Xl) 150 mg PO DAILY [facility] Last Admin: 04/25/18 10:25 Dose: 150 mg Pantoprazole Sodium (Protonix Ec Tab) 40 mg PO DAILY [facility] Last Admin: 04/25/18 09:11 Dose: 40 mg Ticagrelor (Brilinta) 90 mg PO BID [facility] Last Admin: 04/25/18 09:11 Dose: 90 mg - Labs Labs: 04/25/18 06:41 04/25/18 06:35 PT 14.4 SECONDS (9.7-12.2) H 04/24/18 04:02 INR 1.3 04/24/18 04:02 APTT 56 SECONDS (21-34) H D 04/25/18 02:06 - Constitutional Appears: No Acute Distress - Head Exam Head Exam: NORMOCEPHALIC - Eye Exam Eye Exam: Normal appearance - ENT Exam ENT Exam: Normal Exam - Respiratory Exam Respiratory Exam: Rales - Cardiovascular Exam Cardiovascular Exam: REGULAR RHYTHM, Murmur - GI/Abdominal Exam GI & Abdominal Exam: Soft - Extremities Exam Extremities Exam: absent: Pedal Edema - Neurological Exam Neurological Exam: Alert, Oriented x3 Assessment and Plan - Assessment and Plan (Free Text) Plan: nstemi.htn.doing better.transfer to tele.cath/ptca elective
--- NOTE | 2018-04-25 18:23 | CP.PCM.CON ---
History of Present Illness - History of Present Illness History of Present Illness: reason for consultation: shortness of breath/pulmonary edema and bilateral pleural effusion Patient is 67-year-old male recently admitted to non-ST elevation status post cardiac catheter with stent placement to left circumflex presented to [facility] with dyspnea, dx with hypertensive emergency and ACS (+). Patient noted he as non-compliant with antiplatelet therapy and has been smoking cigarettes.chest x-ray also consistent with ppulmonary edema and bilateral pleural effusion. Patient on IV heparin, unable to lie flat and being treated for pulmonary edema. Review of Systems - Review of Systems All systems: reviewed and no additional remarkable complaints except (shortness of breath) Past Patient History - Past Medical History & Family History Past Medical History?: Yes - Past Social History Smoking Status: Never Smoked - CARDIAC Hx Cardiac Disorders: Yes Hx Hypertension: Yes - PULMONARY Hx Respiratory Disorders: No - NEUROLOGICAL Hx Neurological Disorder: No - HEENT Hx HEENT Problems: No - RENAL Hx Chronic Kidney Disease: No - ENDOCRINE/METABOLIC Hx Endocrine Disorders: No - HEMATOLOGICAL/ONCOLOGICAL Hx Blood Disorders: No - INTEGUMENTARY Hx Dermatological Problems: No - MUSCULOSKELETAL/RHEUMATOLOGICAL Hx Musculoskeletal Disorders: No Hx Falls: No - GASTROINTESTINAL Hx Gastrointestinal Disorders: No - GENITOURINARY/GYNECOLOGICAL Hx Genitourinary Disorders: No - PSYCHIATRIC Hx Psychophysiologic Disorder: No Hx Substance Use: No - SURGICAL HISTORY Hx Surgeries: Yes Other/Comment: stent placement 2 wks ago - ANESTHESIA Hx Anesthesia: Yes Hx Anesthesia Reactions: No Hx Malignant Hyperthermia: No Has any member of the family had a problem w/ anesthesia?: No Meds Allergies/Adverse Reactions: Allergies Allergy/AdvReac Type Severity Reaction Status Date / Time No Known Allergies Allergy Verified 04/06/18 17:12 - Medications Medications: Current Medications Albuterol/Ipratropium (Duoneb 3 Mg/0.5 Mg (3 Ml) Ud) 3 ml INH Q6 [facility] Amlodipine Besylate (Norvasc) 10 mg PO DAILY [facility] Last Admin: 04/25/18 09:11 Dose: 10 mg Aspirin (Ecotrin) 81 mg PO DAILY [facility] Last Admin: 04/25/18 09:11 Dose: 81 mg Furosemide (Lasix) 40 mg IVP Q12 [facility] Last Admin: 04/25/18 09:12 Dose: 40 mg Hydralazine HCl (Apresoline) 25 mg PO QID [facility] Last Admin: 04/25/18 17:20 Dose: 25 mg Nitroglycerin/Dextrose (Nitroglycerin 50 Mg/250 Ml D5w) 50 mg in 250 mls @ 7.5 mls/hr IV .Q24H [facility]; 25 MCG/MIN PRN Reason: Protocol Last Titration: 04/25/18 12:01 Dose: 0 mcg/min, 0 mls/hr Heparin Sodium/Sodium Chloride (Heparin 58653 Units/250ml 1/2 Normal Saline) 25 ,000 units in 250 mls @ 11.43 mls/hr IV .[id number] PRN; Protocol; 12 UNITS/KG/HR PRN Reason: PROTOCOL Last Admin: 04/25/18 11:54 Dose: 12 units/kg/hr, 11.43 mls/hr Insulin Human Regular (Novolin R) 0 unit SC ACHS [facility] PRN Reason: Protocol Last Admin: 04/25/18 16:33 Dose: Not Given Losartan Potassium (Cozaar) 100 mg PO DAILY [facility] Last Admin: 04/25/18 10:25 Dose: 100 mg Metoprolol Succinate (Toprol Xl) 150 mg PO DAILY [facility] Last Admin: 04/25/18 10:25 Dose: 150 mg Pantoprazole Sodium (Protonix Ec Tab) 40 mg PO DAILY [facility] Last Admin: 04/25/18 09:11 Dose: 40 mg Ticagrelor (Brilinta) 90 mg PO BID [facility] Last Admin: 04/25/18 17:21 Dose: 90 mg Physical Exam - Head Exam Head Exam: ATRAUMATIC, NORMOCEPHALIC - ENT Exam ENT Exam: Mucous Membranes Moist - Neck Exam Neck exam: Positive for: Normal Inspection - Respiratory Exam Respiratory Exam: Rales - GI/Abdominal Exam GI & Abdominal Exam: Normal Bowel Sounds Results - Vital Signs Recent Vital Signs: Last Vital Signs Temp 97.6 F 04/25/18 16:00 Pulse 83 04/25/18 18:00 Resp 22 04/25/18 18:00 BP 130/95 H 04/25/18 16:34 Pulse Ox 98 04/25/18 16:34 - Labs Result Diagrams: 04/26/18 06:28 04/26/18 06:23 Labs: Laboratory Results - last 24 hr 04/24/18 04/24/18 04/24/18 20:05 20:05 21:25 WBC RBC Hgb Hct MCV MCH MCHC RDW Plt Count MPV Neut % (Auto) Lymph % (Auto) [place] % (Auto) Eos % (Auto) Baso % (Auto) Neut # (Auto) Lymph # (Auto) [place] # (Auto) Eos # (Auto) Baso # (Auto) Neutrophils % (Manual) Lymphocytes % (Manual) Monocytes % (Manual) Platelet Estimate Large Platelets Polychromasia Hypochromasia (manual) Poikilocytosis (manual Anisocytosis (manual) Tear Drop Cells Ovalocytes APTT 50 H D Puncture Site pCO2 pO2 HCO3 ABG pH ABG Total CO2 ABG O2 Saturation ABG Base Excess ABG Hemoglobin ABG Carboxyhemoglobin POC ABG HHb (Measured) ABG Methemoglobin Jeremy Test A-a O2 Difference Respiratory Index Hgb O2 Saturation Vent Mode FiO2 Inspiratory BiPAP Expiratory BiPAP Sodium 141 Potassium 4.0 Chloride 101 Carbon Dioxide 28 Anion Gap 17 BUN 23 H Creatinine 1.3 Est GFR ( Amer) > 60 Est GFR (Non-Af Amer) 55 POC Glucose (mg/dL) 172 H Random Glucose 175 H Calcium 8.6 Phosphorus 3.3 Magnesium 2.0 Total Bilirubin 0.4 AST 269 H D ALT 55 Alkaline Phosphatase 113 Total Creatine Kinase 1038 H CK-MB (Mass) 76.7 H Troponin I 28.8000 H* Total Protein 6.7 Albumin 3.4 L Globulin 3.3 Albumin/Globulin Ratio 1.0 04/25/18 04/25/18 04/25/18 02:06 05:23 06:35 WBC RBC Hgb Hct MCV MCH MCHC RDW Plt Count MPV Neut % (Auto) Lymph % (Auto) [place] % (Auto) Eos % (Auto) Baso % (Auto) Neut # (Auto) Lymph # (Auto) [place] # (Auto) Eos # (Auto) Baso # (Auto) Neutrophils % (Manual) Lymphocytes % (Manual) Monocytes % (Manual) Platelet Estimate Large Platelets Polychromasia Hypochromasia (manual) Poikilocytosis (manual Anisocytosis (manual) Tear Drop Cells Ovalocytes APTT 56 H D Puncture Site Rr pCO2 34 L pO2 60 L HCO3 29.3 H ABG pH 7.53 H ABG Total CO2 29.4 H ABG O2 Saturation 93.5 L ABG Base Excess 5.7 H ABG Hemoglobin 11.9 ABG Carboxyhemoglobin 1.1 POC ABG HHb (Measured) 6.4 H ABG Methemoglobin 0.8 Jeremy Test Pos A-a O2 Difference 183.0 Respiratory Index 3.1 Hgb O2 Saturation 91.8 L Vent Mode Bipap FiO2 40.0 Inspiratory BiPAP 15 Expiratory BiPAP 5 Sodium 141 Potassium 3.3 L Chloride 102 Carbon Dioxide 29 Anion Gap 13 BUN 22 H Creatinine 1.3 Est GFR ( Amer) > 60 Est GFR (Non-Af Amer) 55 POC Glucose (mg/dL) Random Glucose 169 H Calcium 8.5 L Phosphorus 3.2 Magnesium 2.0 Total Bilirubin 0.5 AST 285 H ALT 60 Alkaline Phosphatase 102 Total Creatine Kinase CK-MB (Mass) Troponin I Total Protein 6.4 Albumin 3.2 L Globulin 3.2 Albumin/Globulin Ratio 1.0 04/25/18 04/25/18 04/25/18 06:41 08:15 11:30 WBC 16.2 H RBC 4.35 L Hgb 11.2 L Hct 34.3 L MCV 78.8 L MCH 25.7 L MCHC 32.6 L RDW 16.1 H Plt Count 381 MPV 7.7 Neut % (Auto) 93.0 H Lymph % (Auto) 3.8 L [place] % (Auto) 3.0 Eos % (Auto) 0.0 Baso % (Auto) 0.2 Neut # (Auto) 15.1 H Lymph # (Auto) 0.6 L [place] # (Auto) 0.5 Eos # (Auto) 0.0 Baso # (Auto) 0.0 Neutrophils % (Manual) 94 H Lymphocytes % (Manual) 4 L Monocytes % (Manual) 2 Platelet Estimate Normal Large Platelets Present Polychromasia Slight Hypochromasia (manual) Slight Poikilocytosis (manual Slight Anisocytosis (manual) Slight Tear Drop Cells Slight Ovalocytes Slight APTT Puncture Site pCO2 pO2 HCO3 ABG pH ABG Total CO2 ABG O2 Saturation ABG Base Excess ABG Hemoglobin ABG Carboxyhemoglobin POC ABG HHb (Measured) ABG Methemoglobin Jeremy Test A-a O2 Difference Respiratory Index Hgb O2 Saturation Vent Mode FiO2 Inspiratory BiPAP Expiratory BiPAP Sodium Potassium Chloride Carbon Dioxide Anion Gap BUN Creatinine Est GFR ( Amer) Est GFR (Non-Af Amer) POC Glucose (mg/dL) 166 H 157 H Random Glucose Calcium Phosphorus Magnesium Total Bilirubin AST ALT Alkaline Phosphatase Total Creatine Kinase CK-MB (Mass) Troponin I Total Protein Albumin Globulin Albumin/Globulin Ratio 04/25/18 16:27 WBC RBC Hgb Hct MCV MCH MCHC RDW Plt Count MPV Neut % (Auto) Lymph % (Auto) [place] % (Auto) Eos % (Auto) Baso % (Auto) Neut # (Auto) Lymph # (Auto) [place] # (Auto) Eos # (Auto) Baso # (Auto) Neutrophils % (Manual) Lymphocytes % (Manual) Monocytes % (Manual) Platelet Estimate Large Platelets Polychromasia Hypochromasia (manual) Poikilocytosis (manual Anisocytosis (manual) Tear Drop Cells Ovalocytes APTT Puncture Site pCO2 pO2 HCO3 ABG pH ABG Total CO2 ABG O2 Saturation ABG Base Excess ABG Hemoglobin ABG Carboxyhemoglobin POC ABG HHb (Measured) ABG Methemoglobin Jeremy Test A-a O2 Difference Respiratory Index Hgb O2 Saturation Vent Mode FiO2 Inspiratory BiPAP Expiratory BiPAP Sodium Potassium Chloride Carbon Dioxide Anion Gap BUN Creatinine Est GFR ( Amer) Est GFR (Non-Af Amer) POC Glucose (mg/dL) 136 H Random Glucose Calcium Phosphorus Magnesium Total Bilirubin AST ALT Alkaline Phosphatase Total Creatine Kinase CK-MB (Mass) Troponin I Total Protein Albumin Globulin Albumin/Globulin Ratio Assessment & Plan (1) Acute pulmonary edema Assessment and Plan: Continue diuretics On IV heparin Continue IV nitrates echocardiogram Possible cardiac catheter Status: Acute (2) Bilateral pleural effusion Status: Acute (3) CAD (coronary artery disease) Status: Acute (4) Acute DC Status: Acute
[2018-04-25 22:05] LABS: ALBUMIN 3.6 g/dL (3.5-5.0); CALCIUM 8.6 mg/dl (8.6-10.4)
[2018-04-26] MEDS: Albuterol-Ipratrop 3 mg / 0.5 (3 ml) UD INH SCH ×4 (01:20→18:30)
[2018-04-26 05:55] LABS: ABG ALLEN TEST POS; ARTERIAL BLOOD GAS HCO3 26.6 mmol/L (21-28); ARTERIAL BLOOD GAS HEMOGLOBIN 12.4 g/dL (11.7-17.4); ARTERIAL BLOOD GAS O2 SAT 97.2 % (95-98); ARTERIAL BLOOD GAS PCO2 39 mm/Hg (35-45); ARTERIAL BLOOD GAS PH 7.44 (7.35-7.45); ARTERIAL BLOOD GAS PO2 86 mm/Hg (80-100); ARTERIAL BLOOD GAS TCO2 27.7 mmol/L (22-28)
[2018-04-26 06:39] LABS: BASO % 0.3 % (0.0-2.0); EOS % 0.2 % (0.0-4.0); HEMOGLOBIN 12.4 g/dL (12.0-18.0); LYMPH # 1.8 K/uL (1.0-4.3); MEAN CELL VOLUME 79.6 fL (80.0-94.0); MEAN CORPUSCULAR HEMOGLOBIN 26.5 pg (27.0-31.0); MEAN CORPUSCULAR HGB CONC 33.2 g/dL (33.0-37.0); MEAN PLATELET VOLUME 8.1 fL (7.2-11.7); MONO # 0.9 K/uL (0.0-0.8); MONO % 6.8 % (0.0-10.0); NEUT # 10.4 K/uL (1.8-7.0); NEUT % 78.7 % (50.0-75.0); NRBC % 0.1 % (0.0-2.0); RBC 4.7 Mil/uL (4.40-5.90); RED CELL DISTRIBUTION WIDTH 16.5 % (11.5-14.5); WHITE BLOOD COUNT 13.1 K/uL (4.8-10.8)
[2018-04-26 06:56] LABS: ALB/GLOB RATIO 1.1 (1.0-2.1); ALBUMIN 3.5 g/dL (3.5-5.0); ALT/SGPT 62 U/L (21-72); AST/SGOT 113 U/L (17-59); BLOOD UREA NITROGEN 31 mg/dL (9-20); CALCIUM 8.6 mg/dl (8.6-10.4); GFR AFRICAN-AMERICAN > 60; GFR NON-AFRICAN AMERICAN 51
[2018-04-26] MEDS: (Novolin R) Insulin Human Regular 100 units/ml vial SC SCH ×4 (07:29→22:39)
[2018-04-26] MEDS: Metoprolol Succinate 50 mg XL Tab PO SCH ×2 (09:00→21:19)
[2018-04-26] MEDS: Pantoprazole 40 mg EC Tab PO SCH (09:01)
--- NOTE | 2018-04-26 09:38 | RAD ---
Chest x-ray single frontal view History: Pulmonary edema. Comparison: 04/25/2018 Findings Large loculated left and small right pleural effusion. Prominent consolidative opacification in the left mid to lower lung zone as well as the right mid to lower lung zone. Bilateral hilar prominence. Cardiomegaly. Degenerative changes in the spine and shoulders. Impression: Large loculated left and small right pleural effusion. Prominent consolidative opacification in the left mid to lower lung zone as well as the right mid to lower lung zone. Bilateral hilar prominence. Cardiomegaly.
[2018-04-26] MEDS: Nitroglycerin 50mg in D5W 50 MG/250 ML BOTTLE IV SCH (10:47)
[2018-04-26] MEDS: Heparin25000 units/250ml 1/2NS 25,000 UNITS/250 ML BAG IV PRN (10:51)
--- NOTE | 2018-04-26 15:19 | CP.PCM.PN ---
Subjective - Date & Time of Evaluation Date of Evaluation: 04/26/18 Time of Evaluation: 15:18 - Subjective Subjective: better.no cp.meds noted. Objective - Vital Signs/Intake and Output Vital Signs (last 24 hours): Temp Pulse Resp BP Pulse Ox 97.9 F 80 25 H 123/84 96 04/26/18 12:00 04/26/18 12:00 04/26/18 11:00 04/26/18 11:55 04/26/18 12:00 Intake and Output: 04/26/18 04/26/18 06:59 18:59 Intake Total 376.8 809.8 Output Total 2400 1450 Balance -2023.2 -640.2 - Medications Medications: Current Medications Albuterol/Ipratropium (Duoneb 3 Mg/0.5 Mg (3 Ml) Ud) 3 ml INH Q6 [facility] Last Admin: 04/26/18 14:30 Dose: Not Given Amlodipine Besylate (Norvasc) 10 mg PO DAILY [facility] Last Admin: 04/26/18 09:01 Dose: 10 mg Aspirin (Ecotrin) 81 mg PO DAILY [facility] Last Admin: 04/26/18 09:01 Dose: 81 mg Furosemide (Lasix) 40 mg IVP Q12 [facility] Last Admin: 04/26/18 10:59 Dose: 40 mg Hydralazine HCl (Apresoline) 25 mg PO QID [facility] Last Admin: 04/26/18 13:38 Dose: 25 mg Nitroglycerin/Dextrose (Nitroglycerin 50 Mg/250 Ml D5w) 50 mg in 250 mls @ 7.5 mls/hr IV .Q24H [facility]; 25 MCG/MIN PRN Reason: Protocol Last Admin: 04/26/18 10:47 Dose: Not Given Heparin Sodium/Sodium Chloride (Heparin 67054 Units/250ml 1/2 Normal Saline) 25 ,000 units in 250 mls @ 11.43 mls/hr IV .[id number] PRN; Protocol; 12 UNITS/KG/HR PRN Reason: PROTOCOL Last Admin: 04/26/18 10:51 Dose: 12 units/kg/hr, 11.43 mls/hr Insulin Human Regular (Novolin R) 0 unit SC ACHS [facility] PRN Reason: Protocol Last Admin: 04/26/18 12:24 Dose: 1 u Losartan Potassium (Cozaar) 100 mg PO DAILY [facility] Last Admin: 04/26/18 10:58 Dose: 100 mg Metoprolol Succinate (Toprol Xl) 150 mg PO DAILY [facility] Last Admin: 04/26/18 09:00 Dose: 150 mg Pantoprazole Sodium (Protonix Ec Tab) 40 mg PO DAILY [facility] Last Admin: 04/26/18 09:01 Dose: 40 mg Ticagrelor (Brilinta) 90 mg PO BID [facility] Last Admin: 04/26/18 10:58 Dose: 90 mg - Labs Labs: 04/26/18 06:28 04/26/18 06:23 PT 14.4 SECONDS (9.7-12.2) H 04/24/18 04:02 INR 1.3 04/24/18 04:02 APTT 54 SECONDS (21-34) H 04/26/18 06:28 - Constitutional Appears: No Acute Distress, Chronically Ill - Head Exam Head Exam: NORMOCEPHALIC - Eye Exam Eye Exam: Normal appearance - Neck Exam Neck Exam: Normal Inspection - Respiratory Exam Respiratory Exam: Clear to Ausculation Bilateral - Cardiovascular Exam Cardiovascular Exam: REGULAR RHYTHM, Murmur - GI/Abdominal Exam GI & Abdominal Exam: Soft - Extremities Exam Extremities Exam: absent: Pedal Edema - Neurological Exam Neurological Exam: Alert, Oriented x3 Assessment and Plan - Assessment and Plan (Free Text) Plan: [email or web address] d/c nitr, & iv heparin.
[2018-04-26 16:29] VITALS: RESP 20
--- NOTE | 2018-04-26 17:29 | CP.PCM.PN ---
Subjective - Date & Time of Evaluation Date of Evaluation: 04/26/18 Time of Evaluation: 11:20 - Subjective Subjective: The patient seen and examined Patient states breathing much improved No chest pain Afebrile IV nitrates discontinue Objective - Vital Signs/Intake and Output Vital Signs (last 24 hours): Temp Pulse Resp BP Pulse Ox 97.6 F 75 20 121/81 96 04/26/18 15:55 04/26/18 16:01 04/26/18 15:55 04/26/18 15:55 04/26/18 15:55 Intake and Output: 04/26/18 04/26/18 06:59 18:59 Intake Total 376.8 809.8 Output Total 2400 1450 Balance -2023.2 -640.2 - Medications Medications: Current Medications Albuterol/Ipratropium (Duoneb 3 Mg/0.5 Mg (3 Ml) Ud) 3 ml INH Q6 [facility] Last Admin: 04/26/18 14:30 Dose: Not Given Amlodipine Besylate (Norvasc) 10 mg PO DAILY [facility] Last Admin: 04/26/18 09:01 Dose: 10 mg Aspirin (Ecotrin) 81 mg PO DAILY [facility] Last Admin: 04/26/18 09:01 Dose: 81 mg Enoxaparin Sodium (Lovenox) 60 mg SC Q12 [facility] Furosemide (Lasix) 40 mg IVP Q12 [facility] Last Admin: 04/26/18 10:59 Dose: 40 mg Hydralazine HCl (Apresoline) 25 mg PO QID [facility] Last Admin: 04/26/18 13:38 Dose: 25 mg Insulin Human Regular (Novolin R) 0 unit SC ACHS [facility] PRN Reason: Protocol Last Admin: 04/26/18 17:04 Dose: Not Given Losartan Potassium (Cozaar) 100 mg PO DAILY [facility] Last Admin: 04/26/18 10:58 Dose: 100 mg Metoprolol Succinate (Toprol Xl) 50 mg PO 2200 [facility] Metoprolol Succinate (Toprol Xl) 100 mg PO DAILY [facility] Pantoprazole Sodium (Protonix Ec Tab) 40 mg PO DAILY [facility] Last Admin: 04/26/18 09:01 Dose: 40 mg Rosuvastatin Calcium (Crestor) 10 mg PO HS [facility] Ticagrelor (Brilinta) 90 mg PO BID [facility] Last Admin: 04/26/18 10:58 Dose: 90 mg - Labs Labs: 04/26/18 06:28 04/26/18 06:23 PT 14.4 SECONDS (9.7-12.2) H 04/24/18 04:02 INR 1.3 04/24/18 04:02 APTT 54 SECONDS (21-34) H 04/26/18 06:28 - Head Exam Head Exam: ATRAUMATIC, NORMOCEPHALIC - ENT Exam ENT Exam: Mucous Membranes Moist - Neck Exam Neck Exam: Normal Inspection - Respiratory Exam Respiratory Exam: Rales - Cardiovascular Exam Cardiovascular Exam: REGULAR RHYTHM Assessment and Plan (1) Acute pulmonary edema Assessment & Plan: breathing much improved BiPAP as needed Continue present treatment cont Brilinta The patient advised to stop smoking Status: Acute (2) Bilateral pleural effusion Status: Acute (3) CAD (coronary artery disease) Status: Acute (4) Acute [place] Status: Acute
--- NOTE | 2018-04-26 19:59 | CARD ---
APPROVED REPORT EKG Measurement Heart [id number] NH 102P [id number] <Conclusion> Sinus rhythm with short NH Left axis deviation Right bundle branch block Lateral infarct, age undetermined Inferior infarct, age undetermined Abnormal ECG
--- NOTE | 2018-04-26 19:59 | CARD ---
APPROVED REPORT EKG Measurement Heart [id number] AL 104P [id number] <Conclusion> Sinus rhythm with short AL with premature atrial complexes Left axis deviation Right bundle branch block Lateral infarct, age undetermined Inferior infarct, age undetermined Abnormal ECG
--- NOTE | 2018-04-26 20:00 | CARD ---
APPROVED REPORT EKG Measurement Heart [id number] <Conclusion> Sinus rhythm with short CA Left axis deviation RBBB Nonspecific intraventricular block Possible Inferior infarct, age undetermined T wave abnormality, consider lateral ischemia Abnormal ECG
[2018-04-26] MEDS: Enoxaparin 60 mg Syringe SC SCH (21:19)
[2018-04-27] MEDS: Albuterol-Ipratrop 3 mg / 0.5 (3 ml) UD INH SCH ×4 (01:56→20:36)
[2018-04-27] MEDS: (Novolin R) Insulin Human Regular 100 units/ml vial SC SCH ×4 (08:03→22:43)
[2018-04-27 08:22] LABS: BASO % 0.6 % (0.0-2.0); EOS # 0.1 K/uL (0.0-0.7); EOS % 0.9 % (0.0-4.0); LYMPH # 1.6 K/uL (1.0-4.3); LYMPH % 19.7 % (20.0-40.0); MEAN CELL VOLUME 80.2 fL (80.0-94.0); MEAN CORPUSCULAR HEMOGLOBIN 26.5 pg (27.0-31.0); MEAN CORPUSCULAR HGB CONC 33.1 g/dL (33.0-37.0); MEAN PLATELET VOLUME 8.1 fL (7.2-11.7); MONO # 0.7 K/uL (0.0-0.8); NEUT # 5.8 K/uL (1.8-7.0); NEUT % 69.8 % (50.0-75.0); NRBC % 0.1 % (0.0-2.0); RBC 4.91 Mil/uL (4.40-5.90); RED CELL DISTRIBUTION WIDTH 16.2 % (11.5-14.5); WHITE BLOOD COUNT 8.3 K/uL (4.8-10.8)
[2018-04-27 08:46] LABS: ALB/GLOB RATIO 1.1 (1.0-2.1); ALBUMIN 3.4 g/dL (3.5-5.0); ALT/SGPT 49 U/L (21-72); AST/SGOT 55 U/L (17-59); BLOOD UREA NITROGEN 28 mg/dL (9-20); CALCIUM 8.9 mg/dl (8.6-10.4); GFR AFRICAN-AMERICAN > 60; GFR NON-AFRICAN AMERICAN 51
[2018-04-27] MEDS: Enoxaparin 60 mg Syringe SC SCH ×2 (10:18→23:00)
[2018-04-27] MEDS: Pantoprazole 40 mg EC Tab PO SCH (10:18)
[2018-04-27] MEDS: Metoprolol Succinate 50 mg XL Tab PO SCH ×2 (10:18→22:35)
--- NOTE | 2018-04-27 10:49 | VASCLAB ---
PROCEDURE: Lower Extremity Venous Duplex Exam. HISTORY: Swelling PRIORS: None. TECHNIQUE: Bilateral common femoral, femoral, popliteal and posterior tibial, peroneal and great saphenous veins were evaluated. Flow was assessed with color Doppler, compressibility, assessment of phasic flow and augmentation response. Report prepared by BONNY Collins FINDINGS: RIGHT: 1. Common Femoral Vein: 1.1. Compressibility - Fully compressible: Thrombus - None : Flow - Phasic: Augmentation -Normal: Reflux - None. 2. Femoral Vein: 2.1. Compressibility - Fully compressible: Thrombus - None : Flow - Phasic: Augmentation -Normal: Reflux - None. 3. Popliteal Vein: 3.1. Compressibility - Fully compressible: Thrombus - None : Flow - Phasic: Augmentation -Normal: Reflux - None. 4. Posterior Tibial Vein: 4.1. Compressibility - Fully compressible: Thrombus - None: Flow - Phasic: Augmentation -Normal: Reflux - None. 5. Peroneal Vein: 5.1. Compressibility - Fully compressible: Thrombus - None: Flow - Phasic: Augmentation -Normal: Reflux - None. 6. Great Saphenous Vein: 6.1. Compressibility - Fully compressible: Thrombus - None: Flow - Phasic: Augmentation - Normal: Reflux - None. LEFT: 1. Common Femoral Vein: 1.1. Compressibility - Fully compressible: Thrombus - None: Flow - Phasic: Augmentation -Normal: Reflux - None. 2. Femoral Vein: 2.1. Compressibility - Fully compressible: Thrombus - None: Flow - Phasic: Augmentation -Normal: Reflux - None. 3. Popliteal Vein: 3.1. Compressibility - Fully compressible: Thrombus - None : Flow - Phasic: Augmentation -Normal: Reflux - None. 4. Posterior Tibial Vein: 4.1. Compressibility - Fully compressible: Thrombus - None: Flow - Phasic: Augmentation -Normal: Reflux - None. 5. Peroneal Vein: 5.1. Compressibility - Fully compressible: Thrombus - None: Flow - Phasic: Augmentation -Normal: Reflux - None. 6. Great Saphenous Vein: 6.1. Compressibility - Fully compressible: Thrombus - None: Flow - Phasic: Augmentation - Normal: Reflux - Severe. 3.47s OTHER FINDINGS: Right: Wall thickening is noted of the right great saphenous vein. Left: None significant. IMPRESSION: Right: No evidence of deep or superficial vein thrombosis of the right lower extremity. Normal valve function noted of the right side. Left: No evidence of deep or superficial vein thrombosis of the left lower extremity. Severe valvular incompetence noted of the left great saphenous vein.
--- NOTE | 2018-04-27 12:08 | RAD ---
HISTORY: Congestive heart failure. COMPARISON: Multiple serial examinations preceding the most recent study: April 26, 2018. TECHNIQUE: Chest PA and lateral FINDINGS: LUNGS: Improved aeration of the lungs particularly right lower lobe. PLEURA: Stable bilateral pleural effusions left larger than right. CARDIOVASCULAR: Persisting cardiomegaly. OSSEOUS STRUCTURES: No significant abnormalities. VISUALIZED UPPER ABDOMEN: Normal. OTHER FINDINGS: None. IMPRESSION: Cardiomegaly, improving CHF.
--- NOTE | 2018-04-27 12:48 | CP.PCM.PN ---
Subjective - Date & Time of Evaluation Date of Evaluation: 04/27/18 Time of Evaluation: 12:47 - Subjective Subjective: feels better.no cp or sob.vitals noted labs are good. Objective - Vital Signs/Intake and Output Vital Signs (last 24 hours): Temp Pulse Resp BP Pulse Ox 98.6 F 82 20 133/85 96 04/27/18 08:43 04/27/18 08:58 04/27/18 08:43 04/27/18 10:18 04/27/18 08:43 - Medications Medications: Current Medications Albuterol/Ipratropium (Duoneb 3 Mg/0.5 Mg (3 Ml) Ud) 3 ml INH Q6 [facility] Last Admin: 04/27/18 08:10 Dose: 3 ml Amlodipine Besylate (Norvasc) 10 mg PO DAILY [facility] Last Admin: 04/27/18 11:38 Dose: 10 mg Aspirin (Ecotrin) 81 mg PO DAILY [facility] Last Admin: 04/27/18 10:18 Dose: 81 mg Enoxaparin Sodium (Lovenox) 60 mg SC Q12 [facility] Last Admin: 04/27/18 10:18 Dose: 60 mg Furosemide (Lasix) 40 mg IVP Q12 [facility] Last Admin: 04/27/18 10:18 Dose: 40 mg Hydralazine HCl (Apresoline) 25 mg PO QID [facility] Last Admin: 04/27/18 11:38 Dose: 25 mg Insulin Human Regular (Novolin R) 0 unit SC ACHS [facility] PRN Reason: Protocol Last Admin: 04/27/18 08:03 Dose: Not Given Losartan Potassium (Cozaar) 100 mg PO DAILY [facility] Last Admin: 04/27/18 10:18 Dose: 100 mg Metoprolol Succinate (Toprol Xl) 50 mg PO 2200 [facility] Last Admin: 04/26/18 21:19 Dose: 50 mg Metoprolol Succinate (Toprol Xl) 100 mg PO DAILY [facility] Last Admin: 04/27/18 10:18 Dose: 100 mg Pantoprazole Sodium (Protonix Ec Tab) 40 mg PO DAILY [facility] Last Admin: 04/27/18 10:18 Dose: 40 mg Rosuvastatin Calcium (Crestor) 10 mg PO HS [facility] Last Admin: 04/26/18 21:58 Dose: 10 mg Ticagrelor (Brilinta) 90 mg PO BID [facility] Last Admin: 04/27/18 10:18 Dose: 90 mg - Labs Labs: 04/27/18 08:05 04/27/18 08:05 PT 14.4 SECONDS (9.7-12.2) H 04/24/18 04:02 INR 1.3 04/24/18 04:02 APTT 54 SECONDS (21-34) H 04/26/18 06:28 - Constitutional Appears: No Acute Distress - Head Exam Head Exam: NORMOCEPHALIC - Eye Exam Eye Exam: Normal appearance - Neck Exam Neck Exam: Normal Inspection - Respiratory Exam Respiratory Exam: Clear to Ausculation Bilateral - Cardiovascular Exam Cardiovascular Exam: REGULAR RHYTHM, Murmur - GI/Abdominal Exam GI & Abdominal Exam: Soft - Extremities Exam Extremities Exam: absent: Pedal Edema - Neurological Exam Neurological Exam: Alert, Oriented x3 Assessment and Plan - Assessment and Plan (Free Text) Plan: nstemi,htn,stable.
--- NOTE | 2018-04-27 16:45 | CP.PCM.PN ---
Subjective - Date & Time of Evaluation Date of Evaluation: 04/27/18 Time of Evaluation: 11:30 - Subjective Subjective: Patient seen and examined Sitting comfortably in no acute distress Patient states breathing is much better Denies orthopnea No chest pain On anticoagulation Objective - Vital Signs/Intake and Output Vital Signs (last 24 hours): Temp Pulse Resp BP Pulse Ox 97.6 F 81 20 125/78 97 04/27/18 16:00 04/27/18 16:00 04/27/18 16:00 04/27/18 16:00 04/27/18 16:00 - Medications Medications: Current Medications Albuterol/Ipratropium (Duoneb 3 Mg/0.5 Mg (3 Ml) Ud) 3 ml INH Q6 [facility] Last Admin: 04/27/18 13:20 Dose: Not Given Amlodipine Besylate (Norvasc) 10 mg PO DAILY [facility] Last Admin: 04/27/18 11:38 Dose: 10 mg Aspirin (Ecotrin) 81 mg PO DAILY [facility] Last Admin: 04/27/18 10:18 Dose: 81 mg Enoxaparin Sodium (Lovenox) 60 mg SC Q12 [facility] Last Admin: 04/27/18 10:18 Dose: 60 mg Furosemide (Lasix) 40 mg IVP Q12 [facility] Last Admin: 04/27/18 10:18 Dose: 40 mg Hydralazine HCl (Apresoline) 25 mg PO QID [facility] Last Admin: 04/27/18 13:56 Dose: 25 mg Insulin Human Regular (Novolin R) 0 unit SC ACHS [facility] PRN Reason: Protocol Last Admin: 04/27/18 15:09 Dose: Not Given Losartan Potassium (Cozaar) 100 mg PO DAILY [facility] Last Admin: 04/27/18 10:18 Dose: 100 mg Metoprolol Succinate (Toprol Xl) 50 mg PO 2200 [facility] Last Admin: 04/26/18 21:19 Dose: 50 mg Metoprolol Succinate (Toprol Xl) 100 mg PO DAILY [facility] Last Admin: 04/27/18 10:18 Dose: 100 mg Pantoprazole Sodium (Protonix Ec Tab) 40 mg PO DAILY [facility] Last Admin: 04/27/18 10:18 Dose: 40 mg Rosuvastatin Calcium (Crestor) 10 mg PO HS [facility] Last Admin: 04/26/18 21:58 Dose: 10 mg Ticagrelor (Brilinta) 90 mg PO BID [facility] Last Admin: 04/27/18 10:18 Dose: 90 mg - Labs Labs: 04/27/18 08:05 04/27/18 08:05 PT 14.4 SECONDS (9.7-12.2) H 04/24/18 04:02 INR 1.3 04/24/18 04:02 APTT 54 SECONDS (21-34) H 04/26/18 06:28 - Head Exam Head Exam: ATRAUMATIC, NORMOCEPHALIC - ENT Exam ENT Exam: Mucous Membranes Moist - Neck Exam Neck Exam: Normal Inspection - Respiratory Exam Respiratory Exam: Decreased Breath Sounds - Cardiovascular Exam Cardiovascular Exam: REGULAR RHYTHM - GI/Abdominal Exam GI & Abdominal Exam: Soft, Normal Bowel Sounds - Extremities Exam Extremities Exam: Full ROM, Normal Inspection - Neurological Exam Neurological Exam: Alert Assessment and Plan (1) Acute pulmonary edema Assessment & Plan: Breathing much improved Continue present treatment for now Further workup as per cardiology Pulmonary function test as outpatient Status: Acute (2) Bilateral pleural effusion Status: Acute (3) CAD (coronary artery disease) Status: Acute (4) Acute ME Status: Acute
[2018-04-28] MEDS: Albuterol-Ipratrop 3 mg / 0.5 (3 ml) UD INH SCH ×3 (01:17→11:18)
[2018-04-28 08:25] VITALS: PULSE 82; TEMP 97.3; O2SAT 95
[2018-04-28 08:44] LABS: BASO % 0.5 % (0.0-2.0); EOS # 0.1 K/uL (0.0-0.7); HEMOGLOBIN 13.3 g/dL (12.0-18.0); LYMPH # 1.6 K/uL (1.0-4.3); MEAN CELL VOLUME 79.6 fL (80.0-94.0); MEAN CORPUSCULAR HEMOGLOBIN 26.3 pg (27.0-31.0); MEAN PLATELET VOLUME 8.3 fL (7.2-11.7); MONO # 0.6 K/uL (0.0-0.8); MONO % 6.3 % (0.0-10.0); NEUT # 6.5 K/uL (1.8-7.0); NEUT % 74.2 % (50.0-75.0); RBC 5.05 Mil/uL (4.40-5.90); RED CELL DISTRIBUTION WIDTH 16.5 % (11.5-14.5); WHITE BLOOD COUNT 8.8 K/uL (4.8-10.8)
[2018-04-28 08:51] LABS: ALB/GLOB RATIO 1.1 (1.0-2.1); ALBUMIN 3.6 g/dL (3.5-5.0); ALT/SGPT 49 U/L (21-72); AST/SGOT 48 U/L (17-59); BLOOD UREA NITROGEN 27 mg/dL (9-20); CALCIUM 9.1 mg/dl (8.6-10.4); GFR AFRICAN-AMERICAN > 60; GFR NON-AFRICAN AMERICAN 51
[2018-04-28] MEDS: (Novolin R) Insulin Human Regular 100 units/ml vial SC SCH ×2 (10:54→12:30)
[2018-04-28] MEDS: Metoprolol Succinate 50 mg XL Tab PO SCH (11:05)
[2018-04-28] MEDS: Enoxaparin 60 mg Syringe SC SCH (11:06)
[2018-04-28] MEDS: Pantoprazole 40 mg EC Tab PO SCH (11:08)
[2018-04-28] MEDS ORDERED: Potassium Chloride 20 mEq ER Tab PO STA ×2 (11:11→12:41)
[2018-04-28 11:14] VITALS: BP 134/91
--- NOTE | 2018-04-28 22:39 | CARD ---
APPROVED REPORT EKG Measurement Heart [id number] <Conclusion> Sinus rhythm with short MA with occasional premature ventricular complexes Left axis deviation Right bundle branch block Lateral infarct, age undetermined Inferior infarct, age undetermined Abnormal ECG
--- NOTE | 2018-04-29 04:52 | DS ---
HISTORY OF PRESENT ILLNESS: A 67-year-old gentleman was brought in with a history of congestive heart failure, blood pressure was 220/100. The patient was admitted to ICU. His troponins were elevated. The patient has a non-ST elevation NV. IV diuretics were given. IV was given. The patient was stabilized and being transferred to the floor, was on telemetry. Remains asymptomatic. At this point, the patient is stable and will be discharged to be followed up as an outpatient. The patient is known to have CAD. Apparently, he recently had an angioplasty of the circumflex and was scheduled for another angioplasty of the RCA; however after discharge, the patient had stopped taking Brilinta. This was explained to the patient and his who is at the bedside. It was explained that he needs aspirin, Brilinta and all medications for the blood pressure. Sugars are running normal. He is also on Lipitor at home. At the time of discharge, he will be continuing all his blood pressure medications at home including hydralazine, Brilinta, valsartan, Crestor, baby aspirin, Lasix 40 mg, and Norvasc 10 mg one a day. He is also on metoprolol (Toprol) 100 mg p.o. once a day. He is coming back to see me on Thursday, two days from now in the office at about 5:00. DISCHARGE DIET: 2 gm sodium, low fat, low cholesterol, heart healthy. ACTIVITY: As tolerated. He will make an appointment to see Dr. Lam for elective angioplasty of the RCA. His LVEF was about 50%. Mohan Latham MD
== END 2018-04-28 13:11 | disposition home or self-care (01) | DRG 280 ==
LOC: C.ER 03:37 → C.9I 04:24 → C.6T 04-26 15:05
PROVIDERS: ADMIT Internal Medicine Cardiovascular Disease; ATTEND Internal Medicine Cardiovascular Disease
PROC: 5A09557 Assistance with Respiratory Ventilation, Greater than 96 Consecutive Hours, Continuous Positive Airway Pressure (ICD-10-PCS; principal; 2018-04-24)
DX: I22.2 Subsequent non-ST elevation (NSTEMI) myocardial infarction (principal); J96.92 Respiratory failure, unspecified with hypercapnia; I50.23 Acute on chronic systolic (congestive) heart failure; I13.0 Hypertensive heart and chronic kidney disease with heart failure and stage 1 through stage 4 chronic kidney disease, or unspecified chronic kidney disease; I16.1 Hypertensive emergency; I21.4 Non-ST elevation (NSTEMI) myocardial infarction; E11.22 Type 2 diabetes mellitus with diabetic chronic kidney disease; E11.65 Type 2 diabetes mellitus with hyperglycemia; E78.00 Pure hypercholesterolemia, unspecified; F17.210 Nicotine dependence, cigarettes, uncomplicated; I25.10 Atherosclerotic heart disease of native coronary artery without angina pectoris; J44.9 Chronic obstructive pulmonary disease, unspecified; Z95.5 Presence of coronary angioplasty implant and graft; D72.829 Elevated white blood cell count, unspecified; Z79.4 Long term (current) use of insulin; N18.2 Chronic kidney disease, stage 2 (mild); Z91.19 Patient's noncompliance with other medical treatment and regimen